=== PATIENT | male | born 1970 | race Caucasian/White ===

== ENCOUNTER 2017-06-03 10:26 | Emergency (ER) | payer MEDICARE, OTHER ==
[~2017-06-03] VITALS: Ht 167.6 cm; Wt 81.7 kg
[~2017-06-03 10:26] MED LIST: AMITRIPTYLINE H50 MG PO; CLINDAMYCIN HC300 MG IV; CLINDAMYCIN HC300 MG PO; DOXYCYCLINE HY100 MG PO; FLOMAX0.4 MG PO; HYDROXYZINE HCL50 MG PO; LEVOTHYROXINE150 MCG PO; NORCO 5-325 TA1 EACH PO; VANCOCIN HCL125 MG IV; VICODIN 5-5001 EACH PO; ZOLOFT50 MG PO
[2017-06-03] MEDS ORDERED: PROTONIX40 MG PO (12:34)
== END 2017-06-03 12:50 | disposition home or self-care (01) ==
LOC: ED 10:26
DX: R10.11 Right upper quadrant pain (principal); F17.200 Nicotine dependence, unspecified, uncomplicated; Z87.442 Personal history of urinary calculi; Z88.8 Allergy status to other drugs, medicaments and biological substances; Z79.899 Other long term (current) drug therapy
CPT/HCPCS: 74176; 80053; 81001; 82150; 83690; 85025; 87088; 96361; 96374; 96375; 99284; J1885; J2405; J7030

== ENCOUNTER 2018-07-10 08:27 | Emergency (ER) | payer MEDICARE, OTHER ==
[~2018-07-10] VITALS: Ht 167.6 cm; Wt 81.7 kg
--- OUTSIDE RECORDS SUMMARY | ~2018-07-10 | XMS | Encounter Summary ---
Demographics + + + | Address | [address] | | | [place] [address] | + + + | Home Phone | | + + + | Preferred Language | Unknown | + + + | Marital Status | Single | + + + | Denominational Affiliation | Unknown | + + + | Race | Unknown | + + + | Ethnic Group | Unknown | + + + Author + + + | Author | [facility] [employer] | + + + | Organization | [facility] | + + + | Address | Unknown | + + + | Phone | Unavailable | + + + Support + + +---------+ + | Name | Relationship | Address | Phone | + + +---------+ + | Zakia Song | ECON | Unknown | | + + +---------+ + Care Team Providers + +------+ + | Care Manager Transportation Name | Role | Phone | + +------+ + | Brigitte Law MD | PCP | | + +------+ + Encounter Details +--------+ + + + + | Date | Type | Department | Care Team | Description | +--------+ + + + + | 05/17/ | Documentati | [facility] | 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, | | | 2017 | on Only | [facility] | [facility] [address] | | | | | [address] | [address] [place], | | | | | [place] | [place] [address] | | | | | [address] | [phone] | | | | | [phone] | | | +--------+ + + + [...] on file | | + + + as of this encounter Progress Celena Richards - 05/17/2018 11:51 AM PDTScanned referral in this encounter Plan of Treatment +--------+ + + + + | Date | Type | Specialty | Care Team | Description | +--------+ + + + + | 07/25/ | Appointment | Dolorology | Harish Anderson, | | | 2017 | | | MD [address] | | | | | | [place] | | | | | | [address] | | | | | | | | +--------+ + + + + | 08/01/ | Appointment | Dolorology | Harish Anderson, | | | 2017 | | | MD [address] | | | | | | [place] | | | | | | [address] | | | | | | | | +--------+ + + + + as of this encounter Visit Diagnoses Not on filein this encounter"
--- OUTSIDE RECORDS SUMMARY | ~2018-07-10 | XMS | Encounter Summary ---
Demographics + + + | Address | [address] | | | [place] [address] | + + + | Home Phone | | + + + | Preferred Language | Unknown | + + + | Marital Status | Single | + + + | Gnosticist Affiliation | Unknown | + + + | Race | Unknown | + + + | Ethnic Group | Unknown | + + + Author + + + | Author | [facility] [employer] | + + + | Organization | [facility] | + + + | Address | Unknown | + + + | Phone | Unavailable | + + + Support + + +---------+ + | Name | Relationship | Address | Phone | + + +---------+ + | Zakia Song | ECON | Unknown | | + + +---------+ + Care Team Providers + +------+ + | Care [employer] Name | Role | Phone | + +------+ + | Brigitte Law MD | PCP | | + +------+ + Encounter Details +--------+ + + + + | Date | Type | Department | Care Team | Description | +--------+ + + + + | 05/16/ | Procedure | [facility] | | | | 2017 | Pass | [facility] | | | | | | RADIOLOGY [address] | | | | | | [address] | | | | | | [place] [address] | | | | | | [phone] | | | +--------+ + + + [...] + + + as of this encounter Plan of Treatment +--------+ + + + + | Date | Type | Specialty | Care Team | Description | +--------+ + + + + | 07/25/ | Appointment | Preciousorology | Harish Anderson, | | | 2017 | | | MD [address] | | | | | | [place] | | | | | | [address] | | | | | | | | +--------+ + + + + | 08/01/ | Appointment | Dolorology | Harish Anderson, | | | 2017 | | | MD [address] | | | | | | [place] | | | | | | [address] | | | | | | | | +--------+ + + + + as of this encounter Visit Diagnoses Not on filein this encounter"
--- OUTSIDE RECORDS SUMMARY | ~2018-07-10 | XMS | Encounter Summary ---
Demographics + + + | Address | [address] | | | [place] [address] | + + + | Home Phone | | + + + | Preferred Language | Unknown | + + + | Marital Status | Single | + + + | Uatsdin Affiliation | Unknown | + + + | Race | Unknown | + + + | Ethnic Group | Unknown | + + + Author + + + | Author | [facility] [employer] | + + + | Organization | [facility] | + + + | Address | Unknown | + + + | Phone | Unavailable | + + + Support + + +---------+ + | Name | Relationship | Address | Phone | + + +---------+ + | Zakia Song | ECON | Unknown | | + + +---------+ + Care Team Providers + +------+ + | Care Painter And Grader Cork Name | Role | Phone | + +------+ + | Brigitte Law MD | PCP | | + +------+ + Encounter Details +--------+ + + + + | Date | Type | Department | Care Team | Description | +--------+ + + + + | 06/02/ | Documentati | Jennifer | Harish Anderson, | | | 2018 | on Only | [facility] | [address] | | | | | [address] | [place], [place] | | | | | [place], [place] | [address] | | | | | [address] | | | | | | [phone] | | | +--------+ + + + [...] + + as of this encounter Progress Notes Negrita Fermin CMA - 06/02/2018 9:57 AM PDTROIin this encounter Plan of Treatment +--------+ + + + + | Date | Type | Specialty | Care Team | Description | +--------+ + + + + | 07/25/ | Appointment | Dolorology | Harish Anderson, | | | 2017 | | | MD [address] | | | | | | [place], [place] | | | | | | [address] | | | | | | | | +--------+ + + + + | 08/01/ | Appointment | Dolorology | Harish Anderson, | | 2017 | | | [address] | | | | | | [place] | | | | | | [address] | | | | | | | | +--------+ + + + + as of this encounter Visit Diagnoses Not on filein this encounter"
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
--- OUTSIDE RECORDS SUMMARY | ~2018-07-10 | XMS | Encounter Summary ---
Demographics + + + | Address | [address] | | | [place] [address] | + + + | Home Phone | | + + + | Preferred Language | Unknown | + + + | Marital Status | Single | + + + | Scientology Affiliation | Unknown | + + + | Race | Unknown | + + + | Ethnic Group | Unknown | + + + Author + + + | Author | [facility] [employer] | + + + | Organization | [facility] | + + + | Address | Unknown | + + + | Phone | Unavailable | + + + Support + + +---------+ + | Name | Relationship | Address | Phone | + + +---------+ + | Zakia Song | ECON | Unknown | | + + +---------+ + Care Team Providers + +------+ + | Care Business Performance Manager Name | Role | Phone | + +------+ + | Brigitte Law MD | PCP | | + +------+ + Reason for Visit MRI/CAT Scan (Routine) + +--------+ + + + + | Status | Reason | Specialty | Diagnoses / | Referred By | Referred To | | | | | Procedures | Contact | Contact | + +--------+ + + + + | Pending | | Radiology | Diagnoses | See, | | | Review | | | Diagnosis | Medical | | | | | | unknown | Record | | | | | | Procedures | | | | | | | MRI lumbar | | | | | | | spine | | | | | | | without | | | | | | | contrast | | | + +--------+ + + + + Encounter Details +--------+ + + + + | Date | Type | Department | Care Team | Description | +--------+ + + + + | 05/16/ | Hospital | [facility] | See, Medical | Diagnosis unknown | | 2018 | Encounter | [facility] | Record | | | | | RADIOLOGY [address] | | | | | | [place] [address] | | | | | | [phone] | | | +--------+ + + + [...] | | 2017 | | | [address] | | | | | | [place] | | | | | | [address] | | | | | | | | +--------+ + + + + | 08/01/ | Appointment | Dolorology | Harish Anderson, | | | 2017 | | | [address] | | | | | | [place] | | | | | | [address] | | | | | | | | +--------+ + + + + as of this encounter Procedures + +--------+ + + + | Procedure Name | Priori | Date/Time | Associated Diagnosis | Comments | | | ty | | | | + +--------+ + + + | MRI LUMBAR SPINE WO | Routin | 04/19/2018 | Diagnosis unknown | Results for this | | CONTRAST | e | 12:02 AM | | procedure are in the | | | | PDT | | results section. | + +--------+ + + + in this encounter Results MRI lumbar spine without contrast (04/19/2018 12:02 AM) + + + | Narrative | Performed At | + + + | This is a non-reportable procedure without a radiologist report and | [facility] | | is used for image storage only | [facility]IOLOGY | + + + + + + + + | Performing | Address | City/State/Zipcode | Phone Number | | Organization | | | | + + + + + | [facility] | [address] | [place] [address] | | + + + + + in this encounter Visit Diagnoses + + | Diagnosis | + + | Diagnosis unknown | + + | Other unknown and unspecified cause of morbidity or mortality | + +"
--- OUTSIDE RECORDS SUMMARY | ~2018-07-10 | XMS | Encounter Summary ---
Demographics + + + | Address | [address] | | | [place] [address] | + + + | Home Phone [...] + + + | Author | [facility] | | | and [place] | + + + | Organization | [facility] | | | and [place] | + + + | Address | Unknown | + + + | Phone | Unavailable | + + + Support + + + + + | Name | Relationship | Address | Phone | + + + + + | Tom Song | ECON | [address] | | | | | [place] | | | | | [address] | | + + + + + Care Team Providers + +------+ + | Care Deliverer Outside Name | Role | Phone | + +------+ + | Rubi Mcclure | PCP | | | MD | | | + +------+ + Encounter Details +--------+ + + + + | Date | Type | Department | Care Team | Description | +--------+ + + + + | 04/14/ | Ancillary | [facility] | Provider, | | | 2018 | Orders | [facility] | [address] | | | | | IMAGING | [address] | | | | | [phone] | [place] [address] | | +--------+ + + + + [...] this encounter Plan of Treatment Not on fileas of this encounter Results MRI Lumbar Spine wo Contrast (09/28/2012 1350) + + + | Narrative | Performed [...] | | | + +---------+ + + MRI Cervical Spine wo Contrast (09/28/2012 1345) + + + | Narrative | Performed [...] | | | + +---------+ + + in this encounter Visit Diagnoses Not on filein this encounter"
--- OUTSIDE RECORDS SUMMARY | ~2018-07-10 | XMS | Clinical Summary ---
Demographics + + + | Address | [address] | | | [place] [address] | + + + | Home Phone | | + + + | Preferred Language | Unknown | + + + | Marital Status | Single | + + + | Advent Affiliation | Unknown | + + + | Race | Unknown | + + + | Ethnic Group | Unknown | + + + Author + + + | Author | [facility] | + + + | Organization | [facility] | + + + | Address | Unknown | + + + | Phone | Unavailable | + + + Support + + +---------+ + | Name | Relationship | Address | Phone | + + +---------+ + | Zakia Song | ECON | Unknown | | + + +---------+ + Care Team Providers + +------+ + | Care Sash Repairer Name | Role | Phone | + [...] + + + Current Medications + + +-------+---------+------+------+-------+ | Prescription | Sig. | Disp. | Refills | Star | End | Statu | | | | | | t | Date | s | | | | | | Date | | | + + +-------+---------+------+------+-------+ | levothyroxine | | | | 07/2 | | Activ | | (SYNTHROID) 200 MCG | | | | 5/20 | | e | | tablet | | | | 18 | | | + + +-------+---------+------+------+-------+ | PARoxetine (PAXIL) | | | | 07/2 | | Activ | | 10 MG tablet | | | | 5/20 | | e | | | | | | 18 | | | + + +-------+---------+------+------+-------+ | aspirin 81 MG | Take 81 mg by mouth | | | | | Activ | | tablet | daily. | | | | | e | + + +-------+---------+------+------+-------+ | buPROPion | | | | 09/0 | | Activ | | (WELLBUTRIN SR) 150 | | | | 4/20 | | e | | MG 12 hr tablet | | | | 18 | | | + + +-------+---------+------+------+-------+ | omega-3 acid ethyl | | | | 09/0 | | Activ | | esters (LOVAZA) 1 g | | | | 4/20 | | e | | capsule | | | | 18 | | | + + +-------+---------+------+------+-------+ Active Problems + + + | Problem [...] Facet arthritis of lumbosacral region (HCC) | 06/01/2018 | + + + | Thoracic degenerative disc disease | 06/01/2018 | + + + | Thoracic disc herniation | 06/01/2018 | + + + Encounters +--------+ + + + + | Date | Type | Specialty | Care Team | Description | +--------+ + + + + | 07/03/ | Office | | Harish Anderson, | Spondylosis of | | 2017 | Visit | | MD | lumbar spine | | | | | | (Primary Dx); Facet | | | | | | arthritis of | | | | | | lumbosacral region | | | | | | (HCC); Pars defect | | | | | | of lumbar spine | +--------+ + + + + | 06/02/ | Documentati | | Harish Anderson, | | | 2017 | on Only | | MD | | +--------+ + + + + | 06/01/ | Office | | Harish Anderson, | Spondylosis of | | 2018 | Visit | | MD | lumbar spine; Lumbar | | | | | | radicular pain; | | | | | | 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; | | | | | | Sacroiliac joint | | | | | | pain; Facet | | | | | | arthritis of | | | | | | lumbosacral region | | | | | | ([facility]); Thoracic | | | | | | degenerative disc | | | | | | disease; Thoracic | | | | | | disc herniation | +--------+ + + + + | 05/17/ | Documentati | | 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, | | | 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 | | +--------+ + + + + | 05/16/ | Hospital | | See, Medical | Diagnosis unknown | | 2017 | Encounter | | Record | | +--------+ + + + + | 05/16/ | Hospital | | See, Medical | Diagnosis unknown | | 2018 | Encounter | | Record | | +--------+ + + + + | 05/16/ | Procedure | | | | | 2018 | Pass | | | | +--------+ + + + + | 05/16/ | Procedure | | | | | 2018 | Pass | | | | +--------+ + + + + | 05/15/ | Ancillary | | See, Medical | Diagnosis unknown | | 2018 | Orders | | Record | | +--------+ + + + + from Last 3 Months Family History + + +------+ + | [...] PM PDT | + + + + Plan of Treatment +--------+ + + + + | Date | Type | Specialty | Care Team | Description | +--------+ + + + + | 07/25/ | Appointment | | Harish Anderson, | | | 2018 | | | MD [address] | | | | | | [place], [place] | | | | | | [address] | | | | | | | | +--------+ + + + + | 08/01/ | Appointment | | Harish Anderson, | | | 2018 | | | MD [address] | | | | | | [place] | | | | | | [address] | | | | | | | | +--------+ + + + + + + + + + | Health [...] | | | | | (#1) | 8 | | | + + + + + Procedures + +--------+ + + + | Procedure Name | Priori | Date/Time | Associated Diagnosis | Comments | | | ty | | | | + +--------+ + + + | MRI THORACIC SPINE | Routin | 04/20/2018 | Diagnosis unknown | Results for this | | WO [...] section. | + +--------+ + + + from Last 3 Months Results MRI thoracic spine without contrast (04/20/2018 12:00 AM) + + + | Narrative | Performed At | + + + | This is a non-reportable procedure without a radiologist report and | [facility] | | is used for image storage only | [facility] | + + + + + + + + | Performing | Address | City/State/Zipcode | Phone Number | | Organization | | | | + + + + + | [facility] | [address] | [place] [address] | | + + + + + MRI lumbar spine without contrast (04/19/2018 12:02 AM) + + + | Narrative | Performed At | + + + | This is a non-reportable procedure without a radiologist report and | [facility] | | is used for image storage only | [facility] | + + + + + + + + | Performing | Address | City/State/Zipcode | Phone Number | | Organization | | | | + + + + + | [facility] | [address] | [place] [address] | | + + + + + from Last 3 Months Insurance + +--------+ +------+-------+ + | Payer | Benefi | Subscriber | Type | Phone | Address | | | t Plan | ID | | | | | | / | | | | | | | Group | | | | | + +--------+ +------+-------+ + | MEDICARE | MEDICA | [id number] | | | [address] | | | RE | | | | [place] [phone] | | | IP-OP | | | | | + +--------+ +------+-------+ + | MEDICAID | MEDICA | [id number] | | | [address] | | | ID | | | | [place] | | | [place] | | | | [phone] | + +--------+ +------+-------+ + + +--------+ +--------+ + + | Guarantor Name | Accoun | Relation to | Date | Phone | Billing Address | | | t Type | Patient | of | | | | | | | | | | + +--------+ +--------+ + + | GISELLA BERGER | Person | Self | [birth year] | Home: | [address] | | | al/Fam | | 1969 | [phone] | [place] [address] | | | marj | | | [phone] | | + +--------+ +--------+ + +
--- OUTSIDE RECORDS SUMMARY | ~2018-07-10 | XMS | Encounter Summary ---
Demographics + + + | Address | [address] | | | [place] [address] | + + + | Home Phone | | + + + | Preferred Language | Unknown | + + + | Marital Status | Single | + + + | Quaker Affiliation | Unknown | + + + | Race | Unknown | + + + | Ethnic Group | Unknown | + + + Author + + + | Author | [facility] | + + + | Organization | [facility] | + + + | Address | Unknown | + + + | Phone | Unavailable | + + + Support + + +---------+ + | Name | Relationship | Address | Phone | + + +---------+ + | Zakia Song | ECON | Unknown | | + + +---------+ + Care Team Providers + +------+ + | Care Cloth Stretcher Name | Role | Phone | + [...] | | | | | | MRI thoracic | | | | | | | spine | | | | | | | without | | | | | | | contrast | | | + +--------+ + + + + Encounter Details +--------+ + + + + | Date | Type | Department | Care Team | Description | +--------+ + + + + | 05/16/ | Hospital | [facility] | See, Medical | Diagnosis unknown | | 2018 | Encounter | [facility] | Record | | | | | RADIOLOGY [address] | | | | | | [place] [address] | | | | | | [phone] | | | +--------+ + + + [...] | | | | | | [place] [facility] [place] | | | | | | [address] | | | | | | | | +--------+ + + + + | 08/01/ | Appointment | Dolorology | Harish Anderson, | | | 2017 | | | [address] | | | | | | [place] | | | | | | [address] | | | | | | | [...] + + in this encounter Results MRI thoracic spine without contrast (04/20/2018 [...] [facility] | [address] | [place] [address] | | + + + + + in this encounter Visit Diagnoses + + | Diagnosis | + + | Diagnosis unknown | + + | Other unknown and unspecified cause of morbidity or mortality | + +"
--- OUTSIDE RECORDS SUMMARY | ~2018-07-10 | XMS | Encounter Summary ---
Demographics + + + | Address | [address] | | | [place] [address] | + + + | Home Phone | | + + + | Preferred Language | Unknown | + + + | Marital Status | Single | + + + | Voodoo Affiliation | Unknown | + + + | Race | Unknown | + + + | Ethnic Group | Unknown | + + + Author + + + | Author | [facility] | + + + | Organization | [facility] | + + + | Address | Unknown | + + + | Phone | Unavailable | + + + Support + + +---------+ + | Name | Relationship | Address | Phone | + + +---------+ + | Zakia Song | ECON | Unknown | | + + +---------+ + Care Team Providers + +------+ + | Care Communication Engineer Name | Role | Phone | + +------+ + | Brigitte Law MD | PCP | | + +------+ + Encounter Details +--------+ + + + + | Date | Type | Department | Care Team | Description | +--------+ + + + + | 05/16/ | Procedure | [facility] | | | | 2017 | Pass | [facility] | | | | | | RADIOLOGY [address] | | [address] | [address] | | | | | | [place] [address] | | | | | | [phone] | | | +--------+ + + + [...] | | | | | | [place] | | | | | | [address] | | | | | | | | +--------+ + + + + | 08/01/ | Appointment | Dolorology | Harish Anderson, | | | 2017 | | | MD [address] | | | | | | [place] | | | | | | [address] | | | | | | | | +--------+ + + + + as of this encounter Visit Diagnoses Not on filein this encounter"
--- OUTSIDE RECORDS SUMMARY | ~2018-07-10 | XMS | Encounter Summary ---
Demographics + + + | Address | [address] | | | [place] [address] | + + + | Home Phone | | + + + | Preferred Language | Unknown | + + + | Marital Status | Single | + + + | Faith Affiliation | Unknown | + + + | Race | Unknown | + + + | Ethnic Group | Unknown | + + + Author + + + | Author | [facility] | + + + | Organization | [facility] | + + + | Address | Unknown | + + + | Phone | Unavailable | + + + Support + + +---------+ + | Name | Relationship | Address | Phone | + + +---------+ + | Zakia Song | ECON | Unknown | | + + +---------+ + Care Team Providers + +------+ + | Care Housekeeper Manager Name | Role | Phone | + +------+ + | Brigitte Law MD | PCP | | + +------+ + Reason for Referral MRI/CAT Scan (Routine) + +--------+ + + [...] | + +--------+ + + + + MRI/CAT Scan (Routine) + +--------+ + + [...] + + | 05/15/ | Ancillary | [facility] | See, Medical | Diagnosis unknown | | 2018 | [facility] | Record | | | | | [address] | | | | | | [place] [address] | | | | | | [phone] | | | +--------+ + + + [...] | | | | | | [place] [facility] [place] | | | | | | [address] | | | | | | | | +--------+ + + + + | 08/01/ | Appointment | Dolorology | Harish Anderson, | | | 2017 | | | MD [address] | | | | | | [place] [facility] [place] | | | | | | [address] | | | | | | | | +--------+ + + + + as of this encounter Results MRI thoracic spine without contrast (04/20/2018 12:00 AM) + + + | Narrative | Performed At | + + + | This is a non-reportable procedure without a radiologist report and | [facility] | | is used for image storage only | [facility] | + + + + + + + + | Performing | Address | City/State/Zipcode | Phone Number | | Organization | | | | + + + + + | [facility] | [address] | [place] [address] | | + + + + + [...] [facility] | [address] | [facility] [place] [address] | | + + + + + in this encounter Visit Diagnoses + + | Diagnosis | + + | Diagnosis unknown | + + | Other unknown and unspecified cause of morbidity or mortality | + +"
--- OUTSIDE RECORDS SUMMARY | ~2018-07-10 | XMS | Clinical Summary ---
Demographics + + + | Address | [address] | | | [place] [address] | + + + | Home Phone [...] | Author | [facility] | | | and [place] | + + + | Organization | [facility] | | | and [place] | [...] [place] | | | | | [address] | | + + + + + Care Team Providers + +------+ + | Care Contact Center Engineer Name | Role | Phone | + +------+ + | Rubi Mcclure | PP | | | MD | | | + +------+ + Allergies + + + + + + | Active Allergy | Reactions | Severity | Noted | Comments | | | | | Date | | + + + + + + | Cortisone | Palpitations | Low | 07/02/20 | | | | | | 17 | | + + + + + + Current Medications + + +--------+---------+------+------+-------+ | Prescription | Sig. | Disp. | Refills | Star | End | Statu | | | | | | t | Date | s | | | | | | Date | | | + + +--------+---------+------+------+-------+ | levothyroxine | Take 175 mcg by | | | | | Activ | | (SYNTHROID) 175 MCG | mouth every morning | | | | | e | | tablet | (before breakfast). | | | | | | + + +--------+---------+------+------+-------+ | diazePAM (VALIUM) | Take 0.5 tablets by | 8 | 0 | 09/0 | | Activ | | 10 MG tablet | mouth every 8 hours | tablet | | 9/20 | | e | | | as needed. | | | 17 | | | + + +--------+---------+------+------+-------+ | naproxen sodium | Take 1 tablet by | 30 | 0 | | | Activ | | (ANAPROX) 550 MG | mouth Twice daily | tablet | | 07/13 | | e | | tablet | as needed. | | | 17 | | | + + +--------+---------+------+------+-------+ Active Problems + + + | Problem | Noted Date | + + + | BACK PAIN | | + + + Encounters +--------+ + + + + | Date | Type | Specialty | Care Team | Description | +--------+ + + + + | 04/14/ | Ancillary | | Provider, | | | 2018 | Orders | | MD Abilio | | +--------+ + + + + from Last 3 Months Social History + + + +--------+------+ | [...] + | Blood Pressure | 140/92 | 10/22/20171451 PST | + + + + | Pulse | 64 | 10/22/20171451 PST | + + + + | Temperature | 36.7 C (98.1 F) | 10/22/20171451 PST | + + + + | Respiratory Rate | 18 | 10/22/20171451 PST | + + + + | Oxygen Saturation | 99% | 10/22/20171451 PST | + + + + | Inhaled Oxygen | - | - | | Concentration | | | + + + + | Weight | 83.2 kg (183 lb 6.8 | 10/22/20171451 PST | | | oz) | | + + + + | Height | 167.6 cm (5' 6") | 10/22/20171451 PST | + + + + | Body Mass Index | 29.61 | 10/22/20171451 PST | + + + + Plan of Treatment + + + + + | Health Maintenance | Due Date | Last Done | Comments | + + + + + | Vaccine: | | | | | Dtap/Tdap/Td (1 - | 7 | | | | Tdap) | | | | + + + + + | Vaccine: | | | | | Pneumococcal 19-64 | 7 | | | | (PPSV23 only) Medium | | | | | Risk (1 of 1 - | | | | | PPSV23) | | | | + + + [...] Last 3 Months Insurance + +--------+ +--------+ +---------+ | Payer | Benefi | Subscriber | Type | Phone | Address | | | t Plan | ID | | | | | | / | | | | | | | Group | | | | | + +--------+ +--------+ +---------+ | MEDICARE | MEDICA | [id number] | Medica | +1- | | | | RE | | re | [phone] | | | | PART A | | | | | | | AND B | | | | | + +--------+ +--------+ +---------+ | MEDICARE | MEDICA | [id number] | Medica | +1- | | | | RE | | re | [phone] | | | | PART A | | | | | | | AND B | | | | | + +--------+ +--------+ +---------+ | [place] | MEDICA | [id number] | Medica | +- | | | | ID | | id | 5772 | | | | [place] | | | | | + +--------+ +--------+ +---------+ | [place] | MEDICA | [id number] | Medica | +- | | | | ID | | id | 5772 | | | | [place] | | | | | + +--------+ +--------+ +---------+ + +--------+ +--------+ + + | Guarantor Name | Accoun | Relation to | Date | Phone | Billing Address | | | t Type | Patient | of | | | | | | | | | | + +--------+ +--------+ + + | GISELLA BERGER | Person | Self [birth year] | Home: | [address] | | | al/Fam | | 1969 | [phone] | [place] [address] | | | marj | | | [address] | | + +--------+ +--------+ + + | GISELLA BERGER | Person | Self | [birth year] | Home: | [address] | | | al/Fam | | 1970 | [phone] | [place] [address] | | | marj | | | [address] | | + +--------+ +--------+ + +
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
[~2018-07-10 08:27] MED LIST changes: +PROTONIX40 MG PO
[2018-07-10] MEDS ORDERED: BUPROPION HCL150 M2 PO (08:37)
[2018-07-10] MEDS ORDERED: OMEGA-3 ACID ETH1 GM PO (08:37)
== END 2018-07-10 09:15 | disposition home or self-care (01) ==
LOC: ED 08:27
DX: M77.12 Lateral epicondylitis, left elbow (principal); F17.200 Nicotine dependence, unspecified, uncomplicated; Z88.8 Allergy status to other drugs, medicaments and biological substances; Z79.899 Other long term (current) drug therapy
CPT/HCPCS: 99283

== ENCOUNTER 2018-11-29 20:43 | Emergency (ER) | payer MEDICARE, OTHER ==
[~2018-11-29] VITALS: Ht 167.6 cm; Wt 83.9 kg
[~2018-11-29 20:43] MED LIST changes: +ASPIR-LOW81 MG PO; +BUPROPION HCL150 M2 PO; +OMEGA-3 ACID ETH1 GM PO; +PROZAC10 MG PO
[2018-11-29] MEDS ORDERED: TAMIFLU75 MG PO (22:31)
--- NOTE | 2018-11-30 00:35 | EKG ---
[facility] [address] [facility] [place] [address] Signed Normal sinus rhythm Possible Left atrial enlargement Borderline ECG No previous ECGs available Confirmed by SONAM RAYMOND MD ([id number]) on 11/30/2018 12:35:02 AM Electronically Signed By: SONAM RAYMOND MD 11/30/18 0035 PATIENT NAME: GISELLA BERGER GAL MENDEZ Electrocardiogram DATE OF : 66 PHYSICIAN: SONAM RAYMOND MD REPORT #: [id number] REPORT IS CONFIDENTIAL AND NOT TO BE RELEASED WITHOUT AUTHORIZATION
== END 2018-11-29 22:47 | disposition home or self-care (01) ==
LOC: ED 20:43
DX: J10.1 Influenza due to other identified influenza virus with other respiratory manifestations (principal); F17.200 Nicotine dependence, unspecified, uncomplicated; Z88.8 Allergy status to other drugs, medicaments and biological substances; Z79.899 Other long term (current) drug therapy; Z79.82 Long term (current) use of aspirin
CPT/HCPCS: 71046; 80053; 83605; 84484; 85025; 87040; 87502; 93005; 93010; 96374; 99285-25; J2405; J7030

== ENCOUNTER 2019-10-11 07:44 | Emergency (ER) | payer MEDICARE, OTHER ==
[~2019-10-11] VITALS: Ht 165.1 cm; Wt 86.2 kg
--- OUTSIDE RECORDS SUMMARY | ~2019-10-11 | XMS | Encounter Summary ---
Demographics + + + | Address | [address] | | | [place] [address] | + + + | Home Phone | | + + + | Preferred Language | Unknown | + + + | Marital Status | Unknown | + + + | Samaritan Affiliation | Unknown | + + + | Race | Unknown | + + + | Ethnic Group | Unknown | + + + Author + + + | Author | [facility] | | | and [place] | + + + | Organization | [facility] | | | and [place] | + + + | Address | Unknown | + + + | Phone | Unavailable | + + + Support + + +---------+ + | Name | Relationship | Address | Phone | + + +---------+ + | Zakia Song | ECON | Unknown | | + + +---------+ + Care Team Providers + +------+ + | Care Music Intern Name | Role | Phone | + +------+ + | Rubi Mcclure | PCP | | | MD | | | + +------+ + Encounter Details +--------+ + + + + | Date | Type | Department | Care Team | Description | +--------+ + + + + | 05/16/ | Hospital | [facility] | Conversion | Diagnosis unknown | | 2018 | Encounter | CONVERSION DEP [address] | Transaction, | | | | | [place] | Provider Unknown | | | | | [place] | [phone] | | | | | [address] | | | | | | [phone] | | | +--------+ + + + + Social History + + + +--------+------+ | Tobacco Use | Types | Packs/Day | Years | Date | | | | | Used | | + + + +--------+------+ | Current Every Day | Cigarettes | 0.5 | | | | Smoker | | | | | + + + +--------+------+ + +------+---+---+ | Smokeless Tobacco: | Chew | | | | Current User | | | | + +------+---+---+ + + +---------+ + | Alcohol Use | Drinks/Week | oz/Week | Comments | + + +---------+ + | No | | | | + + +---------+ + + + + | Sex Assigned at | Date Recorded | | | | + + + | Not on file | | + + + + + + + | Job Start Date | Occupation | Industry | + + + + | Not on file | Not on file | Not on file | + + + + + + + + | Travel History | Travel Start | Travel End | + + + + + + | No recent travel history available. | + + documented as of this encounter Medications at Time of Discharge + + + +---------+ + + | Medication | Sig | Dispensed | Refills | Start | End Date | | | | | | Date | | + + + +---------+ + + | carisoprodol | 1 Tablet twice daily | | 0 | 09/16/20 | | | (SOMA) 350 mg tablet | ORAL | | | 15 | | + + + +---------+ + + | diazePAM (VALIUM) | Take 0.5 tablets by | 8 | 0 | 07/02/20 | | | 10 MG tablet | mouth every 8 hours | tablet | | 17 | | | | as needed. | | | | | + + + +---------+ + + | diclofenac | 1 Gel four times | | 0 | 09/17/20 | | | (VOLTAREN) 1% GEL | daily PRN | | | 15 | | | | Transdermal | | | | | + + + +---------+ + + | levothyroxine | Take 175 mcg by | | 0 | | | | (SYNTHROID) 175 MCG | mouth every morning | | | | | | tablet | (before breakfast). | | | | | + + + +---------+ + + | naproxen sodium | Take 1 tablet by | 30 | 0 | 07/02/20 | | | (ANAPROX) 550 MG | mouth Twice daily | tablet | | 17 | | | tablet | as needed. | | | | | + + + +---------+ + + | oxyCODONE | 1 Tablet four times | | 0 | 02/16/20 | | | (ROXICODONE) 15 mg | daily ORAL | | | 16 | | | immediate release | | | | | | | tablet | | | | | | + + + +---------+ + + documented as of this encounter Plan of Treatment Not on filedocumented as of this encounter Procedures + +--------+ + + + | Procedure Name | Priori | Date/Time | Associated Diagnosis | Comments | | | ty | | | | + +--------+ + + + | MRI THORACIC SPINE | Routin | 04/20/2018 | | Results for this | | WO CONTRAST | e | 12:00 AM | | procedure are in the | | | | PDT | | results section. | + +--------+ + + + documented in this encounter Results MRI Thoracic Spine wo Contrast (04/20/2018 12:00 AM PDT) + + | Specimen | + + | | + + + + + | Narrative | Performed At | + + + | This is a non-reportable procedure without a radiologist report and | | | is used for image storage only | | + + + + + | Procedure Note | + + | Kareem Elam - 06/06/2019 5:29 PM PDT This is a non-reportable procedure | | without a radiologist report and isused for image storage only | + + documented in this encounter Visit Diagnoses + + | Diagnosis | + + | Diagnosis unknown Other unknown and unspecified cause of morbidity or mortality | + + documented in this encounter"
--- OUTSIDE RECORDS SUMMARY | ~2019-10-11 | XMS | Encounter Summary ---
Demographics + + + | Address | [address] | | | [place] [address] | + + + | Home Phone | | + + + | Preferred Language | Unknown | + + + | Marital Status | Unknown | + + + | Adventism Affiliation | Unknown | + + + | Race | Unknown | + + + | Ethnic Group | Unknown | + + + Author + + + | Author | [facility] | | | and [place] | + + + | Organization | [facility] | | | and [...] Team Providers + +------+ + | Care Pug Mill Operator Helper Name | Role | Phone | + +------+ + PCP | Unavailable | + +------+ + Encounter Details +--------+ + + + + | Date | Type | Department | Care Team | Description | +--------+ + + + + | 02/15/ | Hospital | [facility] | [place] | | | 2015 | Encounter | [facility] | MD Tia [address] | | | | | [address] [place] | [place] | | | | | [place] | [address] | | | | | [address] | [phone] | | | | | [phone] | | | +--------+ + + + + Social History + +-------+ +--------+------+ | Tobacco Use | Types | Packs/Day | Years | Date | | | | | Used | | + +-------+ +--------+------+ | Never Assessed | | | | | + +-------+ +--------+------+ + + + | Sex Assigned at [...] + + + +---------+ + + | citalopram | Take 20 mg by mouth | | 0 | 03/20/20 | | | (CELEXA) 20 mg | nightly. | | | 10 | 7 | | tablet | | | | | | + + + +---------+ + + | | Take 10-660 mg by | | 0 | 03/20/20 | | | Hydrocodone-Acetamin | mouth 4 times daily. | | | 10 | 7 | | ophen 10-660 MG TABS | | | | | | + + + +---------+ + + | levothyroxine | Take 112 mcg by | | 0 | 07/07/20 | | | (SYNTHROID, | mouth every morning. | | | 12 | 7 | | LEVOTHROID) 112 mcg | | | | | | | tablet | | | | | | + + + +---------+ + + documented as of this encounter Plan of Treatment Not on filedocumented as of this encounter Visit Diagnoses Not on filedocumented in this encounter"
--- OUTSIDE RECORDS SUMMARY | ~2019-10-11 | XMS | Encounter Summary ---
Demographics + + + | Address | [address] | | | [place] [address] | + + + | Home Phone | | + + + | Preferred Language | Unknown | + + + | Marital Status | Unknown | + + + | Jewish Affiliation | Unknown | + + + | Race | Unknown | + + + | Ethnic Group | Unknown | + + + Author + + + | Author | [facility] | | | and [place] | + + + | Organization | [facility] | | | and [...] Team Providers + +------+ + | Care Auditor Medical Claims Name | Role | Phone | + +------+ + PCP | Unavailable | + +------+ + Encounter Details +--------+ + + + + | Date | Type | Department | Care Team | Description | +--------+ + + + + | 02/02/ | [facility] | [facility] | Raji José | | | 2009 | Encounter | HOSPITAL EMERGENCY | MD [address] | | | | | [place] [address] | [facility] | | | | | [address] [place] | [place] [address] | | | | | [address] | [phone] | | | | | [phone] | | | +--------+ + + + [...]
--- OUTSIDE RECORDS SUMMARY | ~2019-10-11 | XMS | Encounter Summary ---
Demographics + + + | Address | [address] | | | [place] [address] | + + + | Home Phone | | + + + | Preferred Language | Unknown | + + + | Marital Status | Unknown | + + + | Lutheran Affiliation | Unknown | + + + | Race | Unknown | + + + | Ethnic Group | Unknown | + + + Author + + + | Author | [facility] | | | and [place] | + + + | Organization | [facility] | | [...] Team Providers + +------+ + | Care Merchandise Presentation Manager Name | Role | Phone | + +------+ + PCP | Unavailable | + +------+ + Encounter Details +--------+ + + + + | Date | Type | Department | Care Team | Description | +--------+ + + + + | 12/07/ | [facility] | [facility] | [place], | | | 2012 | Encounter | [facility] | Simon Goldstein MD | | | | | MEDICAL CLINIC [address] | [address] [facility] | | | | | [facility], | [facility], | | | | | [place] [address] | [place] [address] | | | | | [phone] | [phone] | | | | | | | | +--------+ + + + [...]
--- OUTSIDE RECORDS SUMMARY | ~2019-10-11 | XMS | Encounter Summary ---
Demographics + + + | Address | [address] | | | [place] [address] | + + + | Home Phone | | + + + | Preferred Language | Unknown | + + + | Marital Status | Unknown | + + + | Voodoo Affiliation | Unknown | + + + | Race | Unknown | + + + | Ethnic Group | Unknown | + + + Author + + + | Author | [facility] | | | and [place] | + + + | Organization | [facility] | | [...] Team Providers + +------+ + | Care Travel Physical Therapist Name | Role | Phone | + +------+ + | Unknown, Doctor | PCP | | + +------+ + Reason for Visit + + + | Reason | Comments | + + + | Back Pain | | + + + Encounter Details +--------+ + + + + | Date | Type | Department | Care Team | Description | +--------+ + + + + | 07/02/ | Emergency | [facility] | | Acute bilateral | | 2017 | | HOSPITAL EM[facility]ENCY | | thoracic back pain | | | | CENTER [address] | | (Primary Dx) | | [address] | [address] [place], [place] | | | | | | [address] | | | | | | [phone] | | | +--------+ + + + + Social History + +-------+ +--------+------+ | Tobacco Use | Types | Packs/Day | Years | Date | | | | | Used | | + +-------+ +--------+------+ | Current Every Day | | 0.5 | | | | Smoker | | | | | + +-------+ +--------+------+ + +------+---+---+ | Smokeless Tobacco: | [...] + + documented as of this encounter Last Filed Vital Signs + + + + + | Vital Sign | Reading | Time Taken | Comments | + + + + + | Blood Pressure | 110/79 | 07/02/2017 12:07 PM | | | | | PDT | | + + + + + | Pulse | 79 | 07/02/2017 12:07 PM | | | | | PDT | | + + + + + | Temperature | - | - | | + + + + + | Respiratory Rate | 16 | 07/02/2017 12:07 PM | | | | | PDT | | + + + + + | Oxygen Saturation | 95% | 07/02/2017 12:07 PM | | | | | PDT | | + + + + + | Inhaled Oxygen | - | - | | | Concentration | | | | + + + + + | Weight | 95.3 kg (210 lb) | 07/02/2017 10:49 AM | | | | | PDT | | + + + + + | Height | 167.6 cm (5' 6") | 07/02/2017 10:49 AM | | | | | PDT | | + + + + + | Body Mass Index | 33.89 | 07/02/2017 10:49 AM | | | | | PDT | | + + + + + documented in this encounter Discharge Instructions AttachmentsThe following attachments cannot be sent through Care Everywhere.Back Pain, Reli eving (Icelandic)Safety, Back: Bending (Icelandic)documented in this encounter Medications at Time of Discharge [...] Tablet four times | | 0 | 04/25/20 | | | (ROXICODONE) 15 mg | daily ORAL | | | 16 | | | immediate release | | | | | | | tablet | | | | | | + + + +---------+ + + documented as of this encounter Plan of Treatment Not on filedocumented as of this encounter Visit Diagnoses + + | Diagnosis | + + | Acute bilateral thoracic back pain - Primary | + + documented in this encounter Administered Medications + +--------+ +------+------+ + | Medication Order | MAR | Action | Dose | Rate | Site | | | Action | Date | | | | + +--------+ +------+------+ + | diazePAM (VALIUM) injection 5 | Given | 07/02/20 | 5 mg | | Glut-Rig | | mg 5 mg, Intramuscular, ONCE, | | 17 11:13 | | | ht | | 07/02/17 at 1130, For 1 dose | | AM PDT | | | | + +--------+ +------+------+ + +---+---+ | | | +---+---+ + +-------+ +-------+---+ + | ketorolac (TORADOL) injection | Given | 07/02/20 | 30 mg | | Deltoid- | | 30 mg 30 mg, Intramuscular, | | 17 11:13 | | | Right | | ONCE, 07/02/17 at 1130, For 1 | | AM PDT | | | | | dose | | | | | | + +-------+ +-------+---+ + +---+---+ | | | +---+---+ documented in this encounter
--- OUTSIDE RECORDS SUMMARY | ~2019-10-11 | XMS | Encounter Summary ---
Demographics + + + | Address | [address] | | | [place] [address] | + + + | Home Phone | | + + + | Preferred Language | Unknown | + + + | Marital Status | Unknown | + + + | Anabaptist Affiliation | Unknown | + + + | Race | Unknown | + + + | Ethnic Group | Unknown | + + + Author + + + | Author | [facility] | | | and [place] | + + + | Organization | [facility] | | | and [...] Team Providers + +------+ + | Care Telephone Sterilizer Name | Role | Phone | + +------+ + PCP | Unavailable | + +------+ + Encounter Details +--------+ + + + + | Date | Type | Department | Care Team | Description | +--------+ + + + + | 02/07/ | [facility] | [facility] | Te Child | | | 2009 | Encounter | HOSPITAL [facility] | MD [address] | | | | | CENTER [address] | [place] | | | | | [place] | [place] [address] | | | | | [address] | [phone] | | | | | [phone] | | | +--------+ + + + [...]
--- OUTSIDE RECORDS SUMMARY | ~2019-10-11 | XMS | Encounter Summary ---
Demographics + + + | Address | [address] | | | [place] [address] | + + + | Home Phone | | + + + | Preferred Language | Unknown | + + + | Marital Status | Unknown | + + + | Druze Affiliation | Unknown | + + + | Race | Unknown | + + + | Ethnic Group | Unknown | + + + Author + + + | Author | [facility] | | | and [place] | + + + | Organization | [facility] | | | [...] Team Providers + +------+ + | Care Experimental Mechanic Name | Role | Phone | + +------+ + | No, Physician | PCP | Unavailable | + +------+ + Reason for Visit + + + | Reason | Comments | + + + | Headache (Adult - | | | New Onset Or New | | | Symptoms) | | + + + Encounter Details +--------+ + + + + | Date | Type | Department | Care Team | Description | +--------+ + + + + | 10/22/ | Emergency | [facility] | Neil Walker, | Headache around the | | 2017 | | 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 Dx) | | | | CENTER [address] | [address] [place] | | | | | [place] | [address] | | | | | [address] | | | | | | [phone] | | | +--------+ + + + [...] + + + | Blood Pressure | 140/92 | 10/22/2017 2:52 PM | | | | | PST | | + + + + + | Pulse | 64 | 10/22/2017 2:52 PM | | | | | PST | | + + + + + | Temperature | 36.7 C (98.1 F) | 10/22/2017 2:52 PM | | | | | PST | | + + + + + | Respiratory Rate | 18 | 10/22/2017 2:52 PM | | | | | PST | | + + + + + | Oxygen Saturation | 99% | 10/22/2017 2:52 PM | | | | | PST | | + + + + + | Inhaled Oxygen | - | - | | | Concentration | | | | + + + + + | Weight | 83.2 kg (183 lb 6.8 | 10/22/2017 2:52 PM | | | | oz) | PST | | + + + + + | Height | 167.6 cm (5' 6") | 10/22/2017 2:52 PM | | | | | PST | | + + + + + | Body Mass Index | 29.61 | 10/22/2017 2:52 PM | | | | | PST | | + + + + + documented in this encounter Discharge Instructions AttachmentsThe following attachments cannot be sent through Care Everywhere.Headaches, Self -Care for ([place]ic)documented in this encounter Medications at Time [...] | + +--------+ + + + | CT HEAD WO CONTRAST | STAT | 10/22/2017 | | Results for this | | | | 4:02 PM | | procedure are in the | | | | PST | | results section. | + +--------+ + + + documented in this encounter Results CT Head wo Contrast (10/22/2017 4:02 PM PST) + + | Specimen | + + | | + + + + + | Impressions | Performed At | + + + | IMPRESSION: 1. No acute intracranial process. 2. The results of | [facility] | | the study were discussed with NEIL WALKER at 16:30 | | | Dictated by: Cresencio Edouard | | + + + + + + | Narrative | Performed At | + + + | EXAMINATION: CT HEAD WO CONTRAST HISTORY: HEADACHE (ADULT - | [facility] | | NEW ONSET OR NEW SYMPTOMS) COMPARISON STUDY: December 08, 2012 | | | TECHNIQUE: 5 mm axial slices were acquired through the brain | | | without contrast. DOSE REPORT: CTDIvol: 40.4 mGy. DLP: 737 | | | mGy-cm. Automated exposure control was utilized. FINDINGS: No | | | evidence of an acute intracranial hemorrhage, mass lesion, or midline | | | shift. The schaefer-white matter interface is intact. The ventricles are | | | symmetric. Sulci are age appropriate. Basilar cisterns are patent. | | | White matter has a normal appearance. No obvious vascular | | | abnormality. Paranasal sinuses and mastoid air cells are clear. No | | | fracture. | | + + + + + | Procedure Note | + + | Papa, Rad Results In - 10/22/2017 4:44 PM PST EXAMINATION: | | CT HEAD WO CONTRAST | | | | HISTORY: | | HEADACHE (ADULT - NEW ONSET OR NEW SYMPTOMS) | | | | COMPARISON STUDY: | | December 08, 2012 | | | | TECHNIQUE: | | 5 mm axial slices were acquired through the brain without contrast. | | | | DOSE REPORT: | | CTDIvol: 40.4 mGy. DLP: 737 mGy-cm. Automated exposure control was utilized. | | | | FINDINGS: | | No evidence of an acute intracranial hemorrhage, mass lesion, or midline shift. | | The schaefer-white matter interface is intact. | | The ventricles are symmetric. | | Sulci are age appropriate. | | Basilar cisterns are patent. | | White matter has a normal appearance. | | No obvious vascular abnormality. | | Paranasal sinuses and mastoid air cells are clear. | | No fracture. | | | | IMPRESSION: | | IMPRESSION: | | 1. No acute intracranial process. | | 2. The results of the study were discussed with NEIL WALKER at 16:30 | | | | | | Dictated by: Cresencio Edouard | | | | | + + + +---------+ + + | Performing | Address | City/State/Zipcode | Phone Number | | Organization | | | | + +---------+ + + | [facility] | | | | + +---------+ + + documented in this encounter Visit Diagnoses + + | Diagnosis | + + | Headache around the eyes - Primary Headache | + + documented in this encounter Administered Medications + +--------+ +-------+------+------+ | Medication Order | MAR | Action | Dose | Rate | Site | | | Action | Date | | | | + +--------+ +-------+------+------+ | diphenhydrAMINE (BENADRYL) | Given | 10/22/20 | 25 mg | | | | injection 25 mg 25 mg, | | 17 5:06 | | | | | Intravenous, ONCE, 10/22/17 | | PM PST | | | | | at 1715, For 1 dose | | | | | | + +--------+ +-------+------+------+ +---+---+ | | | +---+---+ + +-------+ +-------+---+---+ | ketorolac (TORADOL) injection | Given | 10/22/20 | 30 mg | | | | 30 mg 30 mg, Intravenous, ONCE, | | 17 5:06 | | | | | 10/22/17 at 1715, For 1 dose | | PM PST | | | | + +-------+ +-------+---+---+ +---+---+ | | | +---+---+ + +-------+ +-------+---+---+ | metoclopramide (REGLAN) 5 mg/mL | Given | 10/22/20 | 10 mg | | | | injection 10 mg 10 mg, | | 17 5:05 | | | | | Intravenous, ONCE, 10/22/17 | | PM PST | | | | | at 1715, For 1 dose, Protect from | | | | | | | light., | | | | | | + +-------+ +-------+---+---+ +---+---+ | | | +---+---+ documented in this encounter
--- OUTSIDE RECORDS SUMMARY | ~2019-10-11 | XMS | Encounter Summary ---
Demographics + + + | Address | [address] | | | [place] [address] | + + + | Home Phone | | + + + | Preferred Language | Unknown | + + + | Marital Status | Unknown | + + + | Nondenominational Affiliation | Unknown | + + + | Race | Unknown | + + + | Ethnic Group | Unknown | + + + Author + + + | Author | [facility] | | | and [place] | + + + | Organization | [facility] | | | and [...] Team Providers + +------+ + | Care Intelligence Specialist Name | Role | Phone | + +------+ + PCP | Unavailable | + +------+ + Encounter Details +--------+ + + + + | Date | Type | Department | Care Team | Description | +--------+ + + + + | 09/05/ | [facility] | [facility] | Tony Dewitt MD | | | 2012 | Encounter | [facility] | [address] | | | | | MEDICAL CLINIC [address] | [place], [place] | | | | | [address] [place], | [address] | | | | | [place] [address] | | | | | | [phone] | | | +--------+ + + + [...]
--- OUTSIDE RECORDS SUMMARY | ~2019-10-11 | XMS | Encounter Summary ---
Demographics + + + | Address | [address] | | | [place] [address] | + + + | Home Phone | | + + + | Preferred Language | Unknown | + + + | Marital Status | Unknown | + + + | Jehovah'S Witness Affiliation | Unknown | + + + | Race | Unknown | + + + | Ethnic Group | Unknown | + + + Author + + + | Author | [facility] | | | and [place] | + + + | Organization | [facility] | | | [...] Team Providers + +------+ + | Care Ocular Care Technologist Name | Role | Phone | + +------+ + | Rubi Mcclure | PCP | | | MD | | | + +------+ + Encounter Details +--------+ + + + + | Date | Type | Department | Care Team | Description | +--------+ + + + + | 05/16/ | Hospital | [facility] | Conversion | Diagnosis unknown | | 2018 | Encounter | CONVERSION DEP [address] | Transaction, | | | | | [place] | Provider Unknown | | | | | [place] | [phone] | | | | | [address] | | | | | | [phone] | | | +--------+ + + + [...] + +--------+ + + + | MRI LUMBAR SPINE WO | Routin | 04/19/2018 | | Results for this | | CONTRAST | e | 12:02 AM | | procedure are in the | | | | PDT | | results section. | + +--------+ + + + documented in this encounter Results MRI Lumbar Spine wo Contrast (04/19/2018 12:02 AM PDT) + + | Specimen | [...]
--- OUTSIDE RECORDS SUMMARY | ~2019-10-11 | XMS | Encounter Summary ---
Demographics + + + | Address | [address] | | | [place] [address] | + + + | Home Phone | | + + + | Preferred Language | Unknown | + + + | Marital Status | Unknown | + + + | Evangelical Affiliation | Unknown | + + + | Race | Unknown | + + + | Ethnic Group | Unknown | + + + Author + + + | Author | [facility] | | | and [place] | + + + | Organization | [facility] | | | [...] Team Providers + +------+ + | Care Electrophysiology Technologist Name | Role | Phone | + +------+ + PCP | Unavailable | + +------+ + Encounter Details +--------+ + + + + | Date | Type | Department | Care Team | Description | +--------+ + + + + | 08/31/ | Hospital | [facility] | Ketty Ordonez, | | | 2011 | Encounter | 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
--- OUTSIDE RECORDS SUMMARY | ~2019-10-11 | XMS | Encounter Summary ---
Demographics + + + | Address | [address] | | | [place] [address] | + + + | Home Phone | | + + + | Preferred Language | Unknown | + + + | Marital Status | Unknown | + + + | Anabaptist Affiliation | Unknown | + + + | Race | Unknown | + + + | Ethnic Group | Unknown | + + + Author + + + | Author | [facility] | | | and [place] | + + + | Organization | [facility] | | [...] Providers + +------+ + | Care Manager Of Application Development Name | Role | Phone | + +------+ + PCP | Unavailable | + +------+ + Encounter Details +--------+ + + + + | Date | Type | Department | Care Team | Description | +--------+ + + + + | 07/21/ | [facility] | [facility] | Estevan Flores | | | 2008 | Encounter | HOSPITAL EMERGENCY | MD [address] | | | | | CENTER [address] | [place] | | | | | [address] [place], [place] | [place] [address] | | | | | [address] | [phone] | | | | | [phone] | | | +--------+ + + + [...]
--- OUTSIDE RECORDS SUMMARY | ~2019-10-11 | XMS | Encounter Summary ---
Demographics + + + | Address | [address] | | | [place] [address] | + + + | Home Phone | | + + + | Preferred Language | Unknown | + + + | Marital Status | Unknown | + + + | Spiritism Affiliation | Unknown | + + + | Race | Unknown | + + + | Ethnic Group | Unknown | + + + Author + + + | Author | [facility] | | | and [place] | + + + | Organization | [facility] | | | [...] Team Providers + +------+ + | Care Brim Blocker Name | Role | Phone | + +------+ + PCP | Unavailable | + +------+ + Encounter Details +--------+ + + + + | Date | Type | Department | Care Team | Description | +--------+ + + + + | 11/30/ | [facility] | [facility] | Rosey, | | | 2012 | Encounter | [facility] | Simon Goldstein MD | | | | | MEDICAL CLINIC [address] | [address] [facility] | | | | | [address] [facility], | [facility], | | | | | [place] [address] | [place] [address] | | | | | [phone] | [phone] | | | | | | | [...]
--- OUTSIDE RECORDS SUMMARY | ~2019-10-11 | XMS | Encounter Summary ---
Demographics + + + | Address | [address] | | | [place] [address] | + + + | Home Phone | | + + + | Preferred Language | Unknown | + + + | Marital Status | Unknown | + + + | Buddhism Affiliation | Unknown | + + + | Race | Unknown | + + + | Ethnic Group | Unknown | + + + Author + + + | Author | [facility] | | | and [place] | + + + | Organization | [facility] | | | and [...] Team Providers + +------+ + | Care Optometrist President/Practice Owner Name | Role | Phone | + +------+ + PCP | Unavailable | + +------+ + Encounter Details +--------+ + + + + | Date | Type | Department | Care Team | Description | +--------+ + + + + | 07/06/ | Abstract | [facility] | DATA MIGRATION [facility] | | | 2011 | | Conversion Location | SR | | | | | [phone] | | | +--------+ + + + [...] + + + | Blood Pressure | 90/70 | 03/20/2010 12:00 AM | | | | | PDT | | + + + + + | Pulse | - | - | | + + + + + | Temperature | - | - | | + + + + + | Respiratory Rate | - | - | | + + + + + | Oxygen Saturation | - | - | | + + + + + | Inhaled Oxygen | - | - | | | Concentration | | | | + + + + + | Weight | 77.3 kg (170 lb 8 | 03/20/2010 12:00 AM | | | | oz) | PDT | | + + + + + | Height | 167.6 cm (5' 6") | 03/20/2010 12:00 AM | | | | | PDT | | + + + + + | Body Mass Index | 27.52 | 03/20/2010 12:00 AM | | | | | PDT | | + + + + + documented in this encounter Plan of Treatment Not on filedocumented as of this encounter Visit Diagnoses Not on filedocumented in this encounter
--- OUTSIDE RECORDS SUMMARY | ~2019-10-11 | XMS | Encounter Summary ---
Demographics + + + | Address | [address] | | | [place] [address] | + + + | Home Phone | | + + + | Preferred Language | Unknown | + + + | Marital Status | Unknown | + + + | Mosque Affiliation | Unknown | + + + | Race | Unknown | + + + | Ethnic Group | Unknown | + + + Author + + + | Author | [facility] | | | and [place] | + + + | Organization | [facility] | | | and [...] Team Providers + +------+ + | Care Bumper Operator Name | Role | Phone | + +------+ + | Rubi Mcclure | PCP | | | MD | | | + +------+ + Encounter Details +--------+ + + + + | Date | Type | Department | Care Team | Description | +--------+ + + + + | 05/16/ | Hospital | [facility] | Conversion | Diagnosis unknown | | 2018 | Encounter | CONVERSION [address] | Transaction, | | | | | [place] | Provider Unknown | | | | | [place] | [phone] | | | | | [address] | | | | | [phone] | | | +--------+ + + + [...]
--- OUTSIDE RECORDS SUMMARY | ~2019-10-11 | XMS | Encounter Summary ---
Demographics + + + | Address | [address] | | | [place] [address] | + + + | Home Phone | | + + + | Preferred Language | Unknown | + + + | Marital Status | Unknown | + + + | Mandaeism Affiliation | Unknown | + + + | Race | Unknown | + + + | Ethnic Group | Unknown | + + + Author + + + | Author | [facility] | | | and [place] | + + + | Organization | [facility] | | [...] Team Providers + +------+ + | Care Venetian Blind Washer Name | Role | Phone | + +------+ + PCP | Unavailable | + +------+ + Encounter Details +--------+ + + + + | Date | Type | Department | Care Team | Description | +--------+ + + + + | 11/20/ | [facility] | [facility] | Te Child | | | 2008 | Encounter | HOSPITAL EMERGENCY | MD [address] | | | | | CENTER [address] | [place] | | | | | [place] | [place] [address] | | | | | [address] | [phone] | | | | | [phone] | | | +--------+ + + + [...]
--- OUTSIDE RECORDS SUMMARY | ~2019-10-11 | XMS | Encounter Summary ---
Demographics + + + | Address | [address] | | | [place] [address] | + + + | Home Phone | | + + + | Preferred Language | Unknown | + + + | Marital Status | Unknown | + + + | Yazidism Affiliation | Unknown | + + + | Race | Unknown | + + + | Ethnic Group | Unknown | + + + Author + + + | Author | [facility] | | | and [place] | + + + | Organization | [facility] | [...] Team Providers + +------+ + | Care Embedded Firmware Engineer Name | Role | Phone | + +------+ + PCP | Unavailable | + +------+ + Encounter Details +--------+ + + + + | Date | Type | Department | Care Team | Description | +--------+ + + + + | 11/21/ | Hospital | [facility] | Mehrdad Cohen | | | 2008 | Encounter | HOSPITAL EMERGENCY | MD [address] | | | | | CENTER [address] | [address] | | | | | [address] [place] | [place] [address] | | | | | [address] | [phone] | | | | | [phone] | | | +--------+ + + + [...]
--- OUTSIDE RECORDS SUMMARY | ~2019-10-11 | XMS | Encounter Summary ---
Demographics + + + | Address | [address] | | | [place] [address] | + + + | Home Phone | | + + + | Preferred Language | Unknown | + + + | Marital Status | Unknown | + + + | Caodaism Affiliation | Unknown | + + + | Race | Unknown | + + + | Ethnic Group | Unknown | + + + Author + + + | Author | [facility] | | | and [place] | + + + | Organization | [facility] | | | [...] Team Providers + +------+ + | Care Topper Press Operator Name | Role | Phone | + +------+ + PCP | Unavailable | + +------+ + Encounter Details +--------+ + + + + | Date | Type | Department | Care Team | Description | +--------+ + + + + | 12/03/ | Hospital | [facility] | [place], | | | 2011 | Encounter | HOSPITAL [facility] | Simon Goldstein MD | | | | | [address] | [address] [facility] | | | | | [place] | [place], | | | | | [address] | [place] [address] | | | | | [phone] | [phone] | | | | | | | [...]
--- OUTSIDE RECORDS SUMMARY | ~2019-10-11 | XMS | Encounter Summary ---
Demographics + + + | Address | [address] | | | [place] [address] | + + + | Home Phone | | + + + | Preferred Language | Unknown | + + + | Marital Status | Unknown | + + + | Gnosticist Affiliation | Unknown | + + + | Race | Unknown | + + + | Ethnic Group | Unknown | + + + Author + + + | Author | [facility] | | | and [place] | + + + | Organization | [facility] | | | [...] Team Providers + +------+ + | Care Construction Executive Name | Role | Phone | + +------+ + PCP | Unavailable | + +------+ + Encounter Details +--------+ + + + + | Date | Type | Department | Care Team | Description | +--------+ + + + + | 01/25/ | [facility] | [facility] | [place] | | | 2009 | Encounter | [facility] | MD [address] | | | | | [address] | [place] | | | | | [place] | [place] [address] | | | | | [address] | [phone] | | | | | [phone] | | | +--------+ + + + [...]
--- OUTSIDE RECORDS SUMMARY | ~2019-10-11 | XMS | Encounter Summary ---
Demographics + + + | Address | [address] | | | [place] [address] | + + + | Home Phone | | + + + | Preferred Language | Unknown | + + + | Marital Status | Unknown | + + + | Protestant Affiliation | Unknown | + + + | Race | Unknown | + + + | Ethnic Group | Unknown | + + + Author + + + | Author | [facility] | | | and [place] | + + + | Organization | [facility] | | | [...] Team Providers + +------+ + | Care Heavy Equipment Operator Name | Role | Phone | + +------+ + PCP | Unavailable | + +------+ + Encounter Details +--------+ + + + + | Date | Type | Department | Care Team | Description | +--------+ + + + + | 09/25/ | [facility] | [facility] | [place] | | | 2015 | Encounter | [facility] | [address] | | | | | MEDICAL CL[facility] | [address] [place], [place] | | | | | [address] [facility], | [address] | | | | | [place] [address] | | | | | | [phone] | | | +--------+ + + + [...]
--- OUTSIDE RECORDS SUMMARY | ~2019-10-11 | XMS | Encounter Summary ---
Demographics + + + | Address | [address] | | | [place] [address] | + + + | Home Phone | | + + + | Preferred Language | Unknown | + + + | Marital Status | Unknown | + + + | Sikh Affiliation | Unknown | + + + | Race | Unknown | + + + | Ethnic Group | Unknown | + + + Author + + + | Author | [facility] | | | and [place] | + + + | Organization | [facility] | | [...] Team Providers + +------+ + | Care Final Inspection Supervisor Name | Role | Phone | + +------+ + PCP | Unavailable | + +------+ + Encounter Details +--------+ + + + + | Date | Type | Department | Care Team | Description | +--------+ + + + + | 09/18/ | [facility] | [facility] | Tony Dewitt MD | | | 2011 | Encounter | [facility] | [address] | | | | | MED[address] CL[facility] | [place], [place] | | | | | [address] [place], | [address] | | | | | [place] [address] | | | | | | [phone] | | | +--------+ + + + [...]
--- OUTSIDE RECORDS SUMMARY | ~2019-10-11 | XMS | Encounter Summary ---
Demographics + + + | Address | [address] | | | [place] [address] | + + + | Home Phone | | + + + | Preferred Language | Unknown | + + + | Marital Status | Unknown | + + + | Christian Affiliation | Unknown | + + + [...] Team Providers + +------+ + | Care Scouring Machine Operator Name | Role | Phone | + +------+ + PCP | Unavailable | + +------+ + Encounter Details +--------+ + + + + | Date | Type | Department | Care Team | Description | +--------+ + + + + | 06/29/ | [facility] | [facility] | [place], | | | 2011 | Encounter | [facility] | Simon Goldstein MD | | | | | MEDICAL CLIN[facility] [address] | [address] [facility] | | | | | [address] [facility], | [facility], | | | | | [place] [address] | [place] [address] | | | | | [phone] | [phone] | | | | | | | [...]
--- OUTSIDE RECORDS SUMMARY | ~2019-10-11 | XMS | Clinical Summary ---
Demographics + + + | Address | [address] | | | [place] [address] | + + + | Home Phone | | + + + | Preferred Language | Unknown | + + + | Marital Status | Unknown | + + + | Mormonism Affiliation | Unknown | + + + | Race | Unknown | + + + | Ethnic Group | Unknown | + + + Author + + + | Author | [facility] | | | and [place] | + + + | Organization | [facility] | | | [...] Team Providers + +------+ + | Care Cloth Bleaching Range Tender Name | Role | Phone | + +------+ + | Brigitte Law MD | PCP | | + +------+ + Allergies + + + + + + | Active Allergy | Reactions | Severity | Noted | Comments | | | | | Date | | + + + + + + | Cortisone | Palpitations | Medium | 07/02/20 | | | | | | 17 | | + + + + + + | Pork-Derived | Rash | Medium | 06/01/20 | | | Products | | | 18 | | + + + + + + | Uncoded | Unknown | High | 05/28/20 | | | Nonscreenable | | | 19 | | | Allergen | | | | | + + + + + + Medications + + + +---------+------+------+-------+ | Medication | Sig | Dispensed | Refills | Star | End | Statu | | | | | | t | Date | s | | | | | | Date | | | + + + +---------+------+------+-------+ | levothyroxine | Take 175 mcg by | | 0 | | | Activ | | (SYNTHROID) 175 MCG | mouth every morning | | | | | e | | tablet | (before breakfast). | | | | | | + + + +---------+------+------+-------+ | diazePAM (VALIUM) | Take 0.5 tablets by | 8 | 0 | 09/0 | | Activ | | 10 MG tablet | mouth every 8 hours | tablet | | 07/13 | | e | | | as needed. | | | 17 | | | + + + +---------+------+------+-------+ +---+ + | | Additional | | | informationPatient | | | not taking. Reported | | | on 10/22/2017 2:55 | | | PM | +---+ + + + +--------+---+------+---+-------+ | naproxen sodium | Take 1 tablet by | 30 | 0 | 09/0 | | Activ | | (ANAPROX) 550 MG | mouth Twice daily | tablet | | 07/13 | | e | | tablet | as needed. | | | 17 | | | + + +--------+---+------+---+-------+ | aspirin 81 MG | | | 0 | | | Activ | | tablet | | | | | | e | + + +--------+---+------+---+-------+ | buPROPion | | | 0 | 09/0 | | Activ | | (WELLBUTRIN SR) 150 | | | | 4/20 | | e | | mg 12 hr tablet | | | | 18 | | | + + +--------+---+------+---+-------+ | carisoprodol | 1 Tablet twice daily | | 0 | 11/2 | | Activ | | (SOMA) 350 mg tablet | ORAL | | | 4/20 | | e | | | | | | 15 | | | + + +--------+---+------+---+-------+ | diclofenac | 1 Gel four times | | 0 | 11/2 | | Activ | | (VOLTAREN) 1% GEL | daily PRN | | | 5/20 | | e | | | Transdermal | | | 15 | | | + + +--------+---+------+---+-------+ | | Take 1 tablet by | | 0 | 11/1 | | Activ | | HYDROcodone-acetamin | mouth every 6 (six) | | | 4/20 | | e | | ophen (NORCO) 5-325 | hours as needed for | | | 18 | | | | mg per tablet | Pain. | | | | | | + + +--------+---+------+---+-------+ | omega-3 acid ethyl | | | 0 | 09/0 | | Activ | | esters (LOVAZA) 1 g | | | | 4/20 | | e | | capsule | | | | 18 | | | + + +--------+---+------+---+-------+ | oxyCODONE | 1 Tablet four times | | 0 | 04/2 | | Activ | | (ROXICODONE) 15 mg | daily ORAL | | | 5/20 | | e | | immediate release | | | | 16 | | | | tablet | | | | | | | + + +--------+---+------+---+-------+ | albuterol 90 | | | 0 | 04/1 | | Activ | | mcg/puff inhaler | | | | 7/20 | | e | | | | | | 19 | | | + + +--------+---+------+---+-------+ | doxycycline | | | 0 | 04/1 | | Activ | | (ADOXA) 100 MG | | | | 1/20 | | e | | tablet | | | | 19 | | | + + +--------+---+------+---+-------+ | FLUoxetine | | | 0 | 01/1 | | Activ | | (PROZAC) 10 mg | | | | 4/20 | | e | | capsule | | | | 19 | | | + + +--------+---+------+---+-------+ | hydrOXYzine | | | 0 | 04/0 | | Activ | | hydrochloride | | | | 2/20 | | e | | (ATARAX) 25 mg | | | | 19 | | | | tablet | | | | | | | + + +--------+---+------+---+-------+ | hydrOXYzine | | | 0 | 05/0 | | Activ | | (VISTARIL) 50 MG | | | | 2/20 | | e | | capsule | | | | 19 | | | + + +--------+---+------+---+-------+ | levothyroxine | | | 0 | 04/1 | | Activ | | (SYNTHROID) 200 mcg | | | | 7/20 | | e | | tablet | | | | 19 | | | + + +--------+---+------+---+-------+ | oseltamivir | | | 0 | 02/0 | | Activ | | (TAMIFLU) 75 mg | | | | 7/20 | | e | | capsule | | | | 19 | | | + + +--------+---+------+---+-------+ | PARoxetine (PAXIL) | | | 0 | 07/2 | | Activ | | 10 mg tablet | | | | 5/20 | | e | | | | | | 18 | | | + + +--------+---+------+---+-------+ Active Problems + + + | Problem | Noted Date | + + + | Facet arthritis of lumbosacral region | 06/01/2018 | + + + | Lumbar radicular pain | 06/01/2018 | + + + | Pars defect of lumbar spine | 06/01/2018 | + + + | Sacroiliac joint pain | 06/01/2018 | + + + | Spondylosis of lumbar spine | 06/01/2018 | + + + | Thoracic degenerative disc disease | 06/01/2018 | + + + | Thoracic disc herniation | 06/01/2018 | + + + | Chronic low back pain | 12/22/2015 | + + + | Seizures | 09/05/2013 | + + + | Hypothyroidism | 02/10/2010 | + + + | Back pain | | + + + Family History + + +------+ + | Medical History | Relation | Name | Comments | + + +------+ + | Prostate cancer | Father | | | + + +------+ + | Other (see comment) | Mother | | Heart Problems | + + +------+ + + +------+ + + | Relation | Name | Status | Comments | + +------+ + + | Father | | Alive | | + +------+ + + | Father | | | | + +------+ + + | Mother | | | | + +------+ + + | Mother | | | | + +------+ + + Social History + + + +--------+------+ | Tobacco Use | Types | Packs/Day | Years | Date | | | | | Used | | + + + +--------+------+ | Unknown If Ever | Cigarettes | 0.5 | | | | Smoked | | | | | + + + +--------+------+ + +------+---+---+ | Smokeless Tobacco: | Chew | | | | Current User | | | | + +------+---+---+ + + | Comments: Snuff | + + + + +---------+ + | Alcohol Use [...] recent travel history available. | + + Last Filed Vital Signs + + + + + | Vital Sign | Reading | Time Taken | Comments | + + + + + | Blood Pressure | 127/77 | 09/06/2018 10:18 AM | | | | | PST | | + + + + + | Pulse | 88 | 09/06/2018 10:18 AM | | | | | PST | | + + + + + | Temperature | 37.1 C (98.7 F) | 09/06/2018 10:18 AM | | | | | PST | | + + + + + | Respiratory Rate | 12 | 09/06/2018 10:18 AM | | | | | PST | | + + + + + | Oxygen Saturation | 99% | 10/22/2017 2:52 PM | | | | | PST | | + + + + + | Inhaled Oxygen | - | - | | | Concentration | | | | + + + + + | Weight | 82.6 kg (182 lb) | 08/09/2018 10:09 AM | | | | | PDT | | + + + + + | Height | 165.1 cm (5' 5") | 08/09/2018 10:09 AM | | | | | PDT | | + + + + + | Body Mass Index | 30.29 | 08/09/2018 10:09 AM | | | | | PDT | | + + + + + Plan of Treatment + + + + + | Health Maintenance | Due Date | Last Done | Comments | + + + + + | Vaccine: | | | | | Dtap/Tdap/Td (1 - | 7 | | | | Tdap) | | | | + + + + + | Adult Annual | | | | | Wellness Visit | 5 | | | + + + + + | Colorectal Cancer | | | | | Screening | 8 | | | | (Colonoscopy) | | | | + + + + + | Vaccine: Zoster (1 | | | | | of 2) | 8 | | | + + + + + | Vaccine: Influenza | | | | | (#1) | 9 | | | + + + + + Results Not on filefrom Last 3 Months Insurance + +--------+ +--------+ +---------+--------+ | Payer | Benefi | Subscriber | Effect | Phone | Address | Type | | | t Plan | ID | tip | | | | | | / | | Dates | | | | | | Group | | | | | | + +--------+ +--------+ +---------+--------+ | MEDICARE | MEDICA | [id number] | 06/24/20 | [phone] | | Medica | | | RE | | 15-Pre | 5 | | re | | | PART A | | sent | | | | | | AND B | | | | | | + +--------+ +--------+ +---------+--------+ | MEDICARE | MEDICA | [id number] | 10/22/ | [phone] | | Medica | | | RE | | 2017-P | 5 | | re | | | PART A | | resent | | | | | | AND B | | | | | | + +--------+ +--------+ +---------+--------+ | [place] | MEDICA | [id number] | 07/02/20 | [phone] | | Medica | | | ID | | 17-Pre | 2 | | id | | | [place] | | sent | | | | + +--------+ +--------+ +---------+--------+ | [place] | MEDICA | [id number] | 10/22/ | [phone] | | Medica | | | ID | | 2017-P | 2 | | id | | | [place] | | resent | | | | + +--------+ +--------+ +---------+--------+ + +--------+ +--------+ + + | Guarantor Name | Accoun | Relation to | Date | Phone | Billing Address | | | t Type | Patient | of | | | | | | | | | | + +--------+ +--------+ + + | Rodriguez Guerrero | Person | Self | [birth year] | | [address] | | | al/Fam | | 1970 | [phone] | [place] [address] | | | marj | | | 1 (Home) | | + +--------+ +--------+ + + | Rodriguez Guerrero | Person | Self | [birth year] | | [address] | | | al/Fam | | 1970 | [phone] | [place] [address] | | | marj | | | 1 (Home) | | + +--------+ +--------+ + + Advance Directives + + + + + | Type | Date Recorded | Patient | Explanation | | | | Cook Jelly | | + + + + + | Power of | | | | | Auto Travel Counselor | | | | + + + + + | Advance | 10/22/2017 | | | | Directive | 3:10 PM | | | + + + + +
--- OUTSIDE RECORDS SUMMARY | ~2019-10-11 | XMS | Encounter Summary ---
Demographics + + + | Address | [address] | | | [place] [address] | + + + | Home Phone | | + + + | Preferred Language | Unknown | + + + | Marital Status | Unknown | + + + | Presybeterian Affiliation | Unknown | + + + | Race | Unknown | + + + | Ethnic Group | Unknown | + + + Author + + + | Author | [facility] | | | and [place] | + + + | Organization | [facility] | | | [...] Team Providers + +------+ + | Care Bait Maker Name | Role | Phone | + +------+ + PCP | Unavailable | + +------+ + Encounter Details +--------+ + + + + | Date | Type | Department | Care Team | Description | +--------+ + + + + | 09/25/ | [facility] | [facility] | Ren, Content | | | 2015 | Encounter | [facility] | [address] | | | | | MEDICAL CL[facility] [address] | [address] [facility], | | | | | [address] [facility], | [place] [address] | | | | | [place] [address] | [phone] | | | | | [phone] | | | +--------+ + + + [...]
--- OUTSIDE RECORDS SUMMARY | ~2019-10-11 | XMS | Encounter Summary ---
Demographics + + + | Address | [address] | | | [place] [address] | + + + | Home Phone | | + + + | Preferred Language | Unknown | + + + | Marital Status | Unknown | + + + | Temple Affiliation | Unknown | + + + | Race | Unknown | + + + | Ethnic Group | Unknown | + + + Author + + + | Author | [facility] | | | and [place] | + + + | Organization | [facility] | | | [...] Team Providers + +------+ + | Care Restaurant District Manager Name | Role | Phone | + +------+ + PCP | Unavailable | + +------+ + Encounter Details +--------+ + + + + | Date | Type | Department | Care Team | Description | +--------+ + + + + | 09/28/ | Hospital | [facility] | Tony Dewitt MD | | | 2011 | Encounter | [facility] | [address] | | | | | [address] | [place] | | | | | [place], [place] | [address] | | | | | [address] | | | | | | [phone] | | | +--------+ + + + [...]
--- OUTSIDE RECORDS SUMMARY | ~2019-10-11 | XMS | Encounter Summary ---
Demographics + + + | Address | [address] | | | [place] [address] | + + + | Home Phone | | + + + | Preferred Language | Unknown | + + + | Marital Status | Unknown | + + + | Mosque Affiliation | Unknown | + + + | Race | Unknown | + + + | Ethnic Group | Unknown | + + + Author + + + | Author | [facility] | | | and [place] | + + + | Organization | [facility] | | [...] +------+ + | Care Cloth Bleaching Range Operator Chief Name | Role | Phone | + +------+ + PCP | Unavailable | + +------+ + Encounter Details +--------+ + + + + | Date | Type | Department | Care Team | Description | +--------+ + + + + | 12/08/ | Hospital | [facility] | [place], | | | 2012 | Encounter | [facility] | Simon Goldstein MD | | | | | [address] [place] | [address] [facility] | | | | | [place] | [place], | | | | | [address] | [place] [address] | | | | | [phone] | [phone] | | | | | | | [...]
--- OUTSIDE RECORDS SUMMARY | ~2019-10-11 | XMS | Encounter Summary ---
Demographics + + + | Address | [address] | | | [place] [address] | + + + | Home Phone | | + + + | Preferred Language | Unknown | + + + | Marital Status | Unknown | + + + | Buddhist Affiliation | Unknown | + + + [...] Team Providers + +------+ + | Care Scrap Hoist Operator Name | Role | Phone | + +------+ + PCP | Unavailable | + +------+ + Encounter Details +--------+ + + + + | Date | Type | Department | Care Team | Description | +--------+ + + + + | 06/20/ | [facility] | [facility] | Altagracia Morrison | | | 2014 | Encounter | [facility] | G, MANAGER COMMUNITY RELATIONS [address] | | | | | MEDICAL CLIN[address] | [place], [place] | | | | | [address] [place], | [address] | | | | | [place] [address] | [phone] | | | | | [phone] | | | +--------+ + + + [...]
--- OUTSIDE RECORDS SUMMARY | ~2019-10-11 | XMS | Encounter Summary ---
Demographics + + + | Address | [address] | | | [place] [address] | + + + | Home Phone | | + + + | Preferred Language | Unknown | + + + | Marital Status | Unknown | + + + | Uatsdin Affiliation | Unknown | + + + | Race | Unknown | + + + | Ethnic Group | Unknown | + + + Author + + + | Author | [facility] | | | and [place] | + + + | Organization | [facility] | | | [...] Team Providers + +------+ + | Care First Front Ventilator Name | Role | Phone | + +------+ + PCP | Unavailable | + +------+ + Encounter Details +--------+ + + + + | Date | Type | Department | Care Team | Description | +--------+ + + + + | 09/23/ | Hospital | [facility] | Tony Dewitt MD | | | 2011 | Encounter | [facility] | [address] | | | | | MEDICAL CLIN[address] | [place], [place] | | | | | [address] [place], | [address] | | | | | [place] [address] | | | | | | [phone] | | | +--------+ + + + [...]
--- OUTSIDE RECORDS SUMMARY | ~2019-10-11 | XMS | Encounter Summary ---
Demographics + + + | Address | [address] | | | [place] [address] | + + + | Home Phone | | + + + | Preferred Language | Unknown | + + + | Marital Status | Unknown | + + + | Bahai Affiliation | Unknown | + + + | Race | Unknown | + + + | Ethnic Group | Unknown | + + + Author + + + | Author | [facility] | | | and [place] | + + + | Organization | [facility] | | | and [...] Team Providers + +------+ + | Care Wallpaper Scraper Name | Role | Phone | + +------+ + PCP | Unavailable | + +------+ + Encounter Details +--------+ + + + + | Date | Type | Department | Care Team | Description | +--------+ + + + + | 11/30/ | [facility] | [facility] | [place], | | | 2012 | Encounter | [facility] | Simon Goldstein MD | | | | | MEDICAL CLIN[address] | [address] [facility] | | | | | [address] [facility], | [facility], | | | | | [place] [address] | [place] [address] | | | | | [phone] | [phone] | | | | | | | [...]
--- OUTSIDE RECORDS SUMMARY | ~2019-10-11 | XMS | Encounter Summary ---
Demographics + + + | Address | [address] | | | [place] [address] | + + + | Home Phone [...] + + + | Author | [facility] | | | and [place] | + + + | Organization | [facility] | | [...] Team Providers + +------+ + | Care Chemical Process Project Engineer Name | Role | Phone | + +------+ + PCP | Unavailable | + +------+ + Encounter Details +--------+ + + + + | Date | Type | Department | Care Team | Description | +--------+ + + + + | 10/05/ | [facility] | [facility] | Te Child | | | 2010 | Encounter | [facility] | [address] | | | | | [address] | [place] | | | | | [place] | [place] [address] | | | | | [address] | [phone] | | | | | [phone] | | | +--------+ + + + [...]
--- OUTSIDE RECORDS SUMMARY | ~2019-10-11 | XMS | Encounter Summary ---
Demographics + + + | Address | [address] | | | [place] [address] | + + + | Home Phone | | + + + | Preferred Language | Unknown | + + + | Marital Status | Unknown | + + + | Yazidism Affiliation | Unknown | + + + | Race | Unknown | + + + | Ethnic Group | Unknown | + + + Author + + + | Author | [facility] | | | and [place] | + + + | Organization | [facility] | | | [...] Team Providers + +------+ + | Care Lead Java Programmer Name | Role | Phone | + [...] | | [address] | [address] [facility] | | | | | [place] | [place], | | | | | [address] | [place] [address] | | | | | [phone] | [phone] | | | | | | | [...]
--- OUTSIDE RECORDS SUMMARY | ~2019-10-11 | XMS | Encounter Summary ---
Demographics + + + | Address | [address] | | | [place] [address] | + + + | Home Phone | | + + + | Preferred Language | Unknown | + + + | Marital Status | Unknown | + + + | Jain Affiliation | Unknown | + + + | Race | Unknown | + + + | Ethnic Group | Unknown | + + + Author + + + | Author | [facility] | | | and [place] | + + + | Organization | [facility] | | | and [...] Team Providers + +------+ + | Care Client Relations Associate Name | Role | Phone | + +------+ + PCP | Unavailable | + +------+ + Encounter Details +--------+ + + + + | Date | Type | Department | Care Team | Description | +--------+ + + + + | 09/08/ | [facility] | [facility] | Raji José | | | 2008 | Encounter | [facility]ITAL [facility] | MD [address] | | | | | [place] [address] | [facility] | | | | | [address] [place] | [place] [address] | | | | | [address] | [phone] | | | | | [phone] | | | +--------+ + + + [...]
--- OUTSIDE RECORDS SUMMARY | ~2019-10-11 | XMS | Encounter Summary ---
Demographics + + + | Address | [address] | | | [place] [address] | + + + | Home Phone | | + + + | Preferred Language | Unknown | + + + | Marital Status | Unknown | + + + | Buddhist Affiliation | Unknown | + + + | Race | Unknown | + + + | Ethnic Group | Unknown | + + + Author + + + | Author | [facility] | | | and [place] | + + + | Organization | [facility] | | [...] Team Providers + +------+ + | Care Pie Crimping Machine Operator Name | Role | Phone | + +------+ + | Rubi Mcclure | PCP | | | MD | | | + +------+ + Encounter Details +--------+ + + + + | Date | Type | Department | Care Team | Description | +--------+ + + + + | 04/14/ | Imaging | [facility] | Provider, | | | 2018 | Exam | [facility] | [address] | | | | | IMAGING | [address] | | | | | [phone] | [place] [address] | | +--------+ + + + + [...] MRI LUMBAR SPINE WO | Routin | 09/28/2012 | | Results for this | | CONTRAST | e | 1:50 PM | | procedure are in the | | | | PST | | results section. | + +--------+ + + + documented in this encounter Results MRI Lumbar Spine wo Contrast (09/28/2012 1:50 PM PST) + + | Specimen | + + | | + + + + + | Narrative | Performed At | + + + | External films for comparison only | [facility] | | | | | No results will be in the chart. | | + + + + +---------+ + + | Performing | Address | City/State/Zipcode | Phone Number | | Organization | | | | + +---------+ + + | [facility] | | | | + +---------+ + + documented in this encounter Visit Diagnoses Not on filedocumented in this encounter"
--- OUTSIDE RECORDS SUMMARY | ~2019-10-11 | XMS | Encounter Summary ---
Demographics + + + | Address | [address] | | | [place] [address] | + + + | Home Phone | | + + + | Preferred Language | Unknown | + + + | Marital Status | Unknown | + + + | Faith Affiliation | Unknown | + + + | Race | Unknown | + + + | Ethnic Group | Unknown | + + + Author + + + | Author | [facility] | | | and [place] | + + + | Organization | [facility] | | | [...] Team Providers + +------+ + | Care Scuba Diving Teacher Name | Role | Phone | + +------+ + PCP | Unavailable | + +------+ + Encounter Details +--------+ + + + + | Date | Type | Department | Care Team | Description | +--------+ + + + + | 07/24/ | Hospital | [facility] | Altagracia Morrison | | | 2014 | Encounter | [facility] | G, FURNITURE MAKER [address] | | | | | [address] | [place] | | | | | [place] | [address] | | | | | [address] | [phone] | | | | | [phone] | | | +--------+ + + + [...] | + +--------+ + + + | TSH | Routin | 07/24/2015 | | Results for this | | | e | 12:30 PM | | procedure are in the | | | | PDT | | results section. | + +--------+ + + + documented in this encounter Results TSH (07/24/2015 12:30 PM PDT) + +-------+ + + + | Component | Value | Ref Range | Performed | Pathologist | | | | | At | Signature | + +-------+ + + + | TSH | 17.4 | 0.40 - 4.68 | EXTERNAL | | | | | mIU/L | LAB | | + +-------+ + + + + + | Specimen | + + | | + + + +---------+ + + | Performing | Address | City/State/Zipcode | Phone Number | | Organization | | | | + +---------+ + + | EXTERNAL LAB | | | | + +---------+ + + documented in this encounter Visit Diagnoses Not on filedocumented in this encounter"
--- OUTSIDE RECORDS SUMMARY | ~2019-10-11 | XMS | Encounter Summary ---
Demographics + + + | Address | [address] | | | [place] [address] | + + + | Home Phone | | + + + | Preferred Language | Unknown | + + + | Marital Status | Unknown | + + + | Mandaen Affiliation | Unknown | + + + [...] Team Providers + +------+ + | Care News Gathering Technician Name | Role | Phone | + +------+ + PCP | Unavailable | + +------+ + Encounter Details +--------+ + + + + | Date | Type | Department | Care Team | Description | +--------+ + + + + | 09/23/ | Hospital | [facility] | Tony Dewitt MD | | | 2011 | Encounter | [facility] | [address] | | | | | [facility] [facility] | [place], [place] | | | | | [address] [place], | [address] | | | | | [place] [address] | | | | | | [phone] | | | +--------+ + + + [...]
--- OUTSIDE RECORDS SUMMARY | ~2019-10-11 | XMS | Encounter Summary ---
Demographics + + + | Address | [address] | | | [place] [address] | + + + | Home Phone | | + + + | Preferred Language | Unknown | + + + | Marital Status | Unknown | + + + | Judaism Affiliation | Unknown | + + + | Race | Unknown | + + + | Ethnic Group | Unknown | + + + Author + + + | Author | [facility] | | | and [place] | + + + | Organization | [facility] | | | [...] Team Providers + +------+ + | Care Medical Lab Technologist Name | Role | Phone | + +------+ + PCP | Unavailable | + +------+ + Encounter Details +--------+ + + + + | Date | Type | Department | Care Team | Description | +--------+ + + + + | 06/20/ | Hospital | [facility] | Altagracia Morrison | | | 2014 | Encounter | [facility] | G, 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 | + +--------+ + + + | BASIC METABOLIC | Routin | 06/20/2015 | | Results for this | | PANEL | e | 4:38 PM | | procedure are in the | | | | PDT | | results section. | + +--------+ + + + documented in this encounter Results Drugs of Abuse, Screen, Urine (06/20/2015 4:38 PM PDT) + +-------+ + + + | Component | Value | Ref Range | Performed | Pathologist | | | | | At | Signature | + +-------+ + + + | THC RESULT | NEG | NEG ng/mL | EXTERNAL | | | | | | LAB | | + +-------+ + + + | Phencyclidi | NEG | NEG ng/mL | EXTERNAL | | | ne | | | LAB | | + +-------+ + + + | Cocaine | NEG | NEG ng/mL | EXTERNAL | | | | | | LAB | | + +-------+ + + + | Methampheta | NEG | NEG ng/mL | EXTERNAL | | | mine | | | LAB | | + +-------+ + + + | Opiates | NEG | NEG ng/mL | EXTERNAL | | | | | | LAB | | + +-------+ + + + | Amphetamine | NEG | NEG ng/mL | EXTERNAL | | | s | | | LAB | | + +-------+ + + + | Benzodiazep | NEG | NEG ng/mL | EXTERNAL | | | chandrakant | | | LAB | | | Screen, | | | | | | Urine | | | | | + +-------+ + + + | TCA Scrn | POS | NEG ng/mL | EXTERNAL | | | | | | LAB | | + +-------+ + + + | Methadone | NEG | NEG ng/mL | EXTERNAL | | | Screen, | | | LAB | | | Urine | | | | | + +-------+ + + + | Barbiturate | NEG | NEG ng/mL | EXTERNAL | | | s | | | LAB | | + +-------+ + + + | Oxycodone | POS | NEG ng/mL | EXTERNAL | | | | | | LAB | | + +-------+ + + + | Propoxyphen | NEG | NEG ng/mL | EXTERNAL | | | e | | | LAB | | + +-------+ + + + | Buprenorphi | NEG | NEG ng/mL | EXTERNAL | | | ne | | | LAB | | + +-------+ + + + + + | Specimen | + + | | + + + +---------+ + + | Performing | Address | City/State/Zipcode | Phone Number | | Organization | | | | + +---------+ + + | EXTERNAL LAB | | | | + +---------+ + + Basic Metabolic Panel (06/20/2015 4:38 PM PDT) + +-------+ + + + | Component | Value | Ref Range | Performed | Pathologist | | | | | At | Signature | + +-------+ + + + | Sodium | 135 | 132 - 143 | EXTERNAL | | | | | mmol/L | LAB | | + +-------+ + + + | Potassium | 3.9 | 3.3 - 4.9 | EXTERNAL | | | | | mmol/L | LAB | | + +-------+ + + + | Cl | 103 | 95 - 108 mmol/L | EXTERNAL | | | | | | LAB | | + +-------+ + + + | CO2 | 29 | 23 - 34 mmol/L | EXTERNAL | | | | | | LAB | | + +-------+ + + + | Anion Gap | 3 | 7 - 16 | EXTERNAL | | | | | | LAB | | + +-------+ + + + | Calcium | 9.5 | 8.3 - 10.0 | EXTERNAL | | | | | mg/dL | LAB | | + +-------+ + + + | Glucose | 86 | 70 - 110 mg/dL | EXTERNAL | | | | | | LAB | | + +-------+ + + + | BUN, Bld | 20 | 5 - 26 mg/dL | EXTERNAL | | | | | | LAB | | + +-------+ + + + | Creatinine | 1.4 | 0.7 - 1.4 mg/dL | EXTERNAL | | | | | | LAB | | + +-------+ + + + | BUN/Creatin | 14.3 | 7.0 - 24.0 | EXTERNAL | | | ine Ratio | | RATIO | LAB | | + +-------+ + + + | GFR | 58 | >=60 | EXTERNAL | | | ESTIMATE | | mL/min/1.73m2 | LAB | | + +-------+ + [...]
--- OUTSIDE RECORDS SUMMARY | ~2019-10-11 | XMS | Clinical Summary ---
Demographics + + + | Address | [address] | | | [place] [address] | + + + | Home Phone | | + + + | Preferred Language | Unknown | + + + | Marital Status | Single | + + + | Mu-Ism Affiliation | Unknown | + + + | Race | Unknown | + + + | Ethnic Group | Unknown | + + + Author + + + | Author | [facility] (Historical as of | | | 06-09-19) | + + + | Organization | [facility] (Historical as of | | | 06-09-19) | + + + | Address | Unknown | + + + | Phone | Unavailable | + + + Support + + +---------+ + | Name | Relationship | Address | Phone | + + +---------+ + | Zakia Song | ECON | Unknown | | + + +---------+ + Care Team Providers + +------+ + | Care Border Guard Name | Role | Phone | + +------+ + | Brigitte Law MD | PP | | + +------+ + Allergies + [...] | + + + + + + Current Medications + + +--------+---------+------+------+-------+ | Prescription | Sig. | Disp. | Refills | Star | End | Statu | | | | | | t | Date | s | | | | | | Date | | | + + +--------+---------+------+------+-------+ | levothyroxine | | | | 07/2 | | Activ | | (SYNTHROID) 200 MCG | | | | 5/20 | | e | | tablet | | | | 18 | | | + + +--------+---------+------+------+-------+ | PARoxetine (PAXIL) | | | | 07/2 | | Activ | | 10 MG tablet | | | | 5/20 | | e | | | | | | 18 | | | + + +--------+---------+------+------+-------+ | aspirin 81 MG | Take 81 mg by mouth | | | | | Activ | | tablet | daily. | | | | | e | + + +--------+---------+------+------+-------+ | buPROPion | | | | 09/0 | | Activ | | (WELLBUTRIN SR) 150 | | | | 4/20 | | e | | MG 12 hr tablet | | | | 18 | | | + + +--------+---------+------+------+-------+ | omega-3 acid ethyl | | | | 09/0 | | Activ | | esters (LOVAZA) 1 g | | | | 4/20 | | e | | capsule | | | | 18 | | | + + +--------+---------+------+------+-------+ | | Take 1 tablet by | 20 | 0 | 11/1 | | Activ | | HYDROcodone-acetamin | mouth every 6 (six) | tablet | | 4/20 | | e | | ophen (NORCO) 5-325 | hours as needed for | | | 18 | | | | MG per tablet | Pain. | | | | | | + + +--------+---------+------+------+-------+ Active Problems + + + | Problem | Noted Date | + + + | Spondylosis of lumbar spine | 06/01/2018 | + + + | Lumbar radicular pain | 06/01/2018 | + + + | Pars defect of lumbar spine | 06/01/2018 | + + + | Sacroiliac joint pain | 06/01/2018 | + + + | Facet arthritis of lumbosacral region | 06/01/2018 | + + + | Thoracic degenerative disc disease | 06/01/2018 | + + + | Thoracic disc herniation | 06/01/2018 | + + + Family History + + +------+ + | Medical History | Relation | Name | Comments | + + +------+ + | Prostate cancer | Father | | | + + +------+ + | Heart Problems | Mother | | | + + +------+ + + +------+ + + | Relation | Name | Status | Comments | + +------+ + + | Father | | Alive | | + +------+ + + | Mother | | | | + +------+ + + Social History + +-------+ +--------+------+ | Tobacco Use | Types | Packs/Day | Years | Date | | | | | Used | | + +-------+ +--------+------+ | Unknown If Ever | | | | | | Smoked | | | | | + +-------+ +--------+------+ + +---+---+---+ | Smokeless Tobacco: | | | | | Current User | | | | + +---+---+---+ + + | Comments: Snuff | + + + + +---------+ + | Alcohol Use | Drinks/We | oz/Week | Comments | | | ek | | | + + +---------+ + | No | | | | + + +---------+ + + + + | Sex Assigned at | Date Recorded | | | | + + + | Not on file | | + + + Last Filed Vital Signs + + + + | Vital Sign | Reading | Time Taken | + + + + | Blood Pressure | 127/77 | 09/06/2018 10:17 AM PST | + + + + | Pulse | 88 | 09/06/2018 10:17 AM PST | + + + + | Temperature | 37.1 C (98.7 F) | 09/06/2018 9:11 AM PST | + + + + | Respiratory Rate | 12 | 09/06/2018 10:17 AM PST | + + + + | Oxygen Saturation | 95% | 09/06/2018 10:17 AM PST | + + + + | Inhaled Oxygen | - | - | | Concentration | | | + + + + | Weight | 82.6 kg (182 lb) | 08/09/2018 10:03 AM PDT | + + + + | Height | 165.1 cm (5' 5") | 08/09/2018 10:03 AM PDT | + + + + | Body Mass Index | 30.29 | 08/09/2018 10:03 AM PDT | + + + + Plan of Treatment + + + + + | Health Maintenance | Due Date | Last Done | Comments | + + + + + | Vaccine: | | | | | Dtap/Tdap/Td (1 - | 7 | | | | Tdap) | | | | + + + + + | Colon Cancer | | | | | Screening [...] filefrom Last 3 Months Insurance + +--------+ +------+-------+ + | Payer | Benefi | Subscriber | Type | Phone | Address | | | t Plan | ID | | | | | | / | | | | | | | Group | | | | | + +--------+ +------+-------+ + | MEDICARE | MEDICA | [id number] | | | [address] | | | RE | | | | [place] [phone] | | | IP-OP | | | | | + +--------+ +------+-------+ + | MEDICAID | MEDICA | [id number] | | | [address] | | | [place] | | | | [place] | | | [place] | | | | [address] | + +--------+ +------+-------+ + + +--------+ +--------+ + + | Guarantor Name | Accoun | Relation to | Date | Phone | Billing Address | | | t Type | Patient | of | | | | | | | | | | + +--------+ +--------+ + + | GISELLA BERGER | Person | Self [birth year] | Home: | [address] | | | al/Fam | | 1970 | [phone] | [place] [address] | | | marj | | | [phone] | | + +--------+ +--------+ + +
--- OUTSIDE RECORDS SUMMARY | ~2019-10-11 | XMS | Encounter Summary ---
Demographics + + + | Address | [address] | | | [place] [address] | + + + | Home Phone | | + + + | Preferred Language | Unknown | + + + | Marital Status | Unknown | + + + | Tenriism Affiliation | Unknown | + + + | Race | Unknown | + + + | Ethnic Group | Unknown | + + + Author + + + | Author | [facility] | | | and [place] | + + + | Organization | [facility] | | [...] Team Providers + +------+ + | Care Digital Sales Assistant Name | Role | Phone | + +------+ + PCP | Unavailable | + +------+ + Encounter Details +--------+ + + + + | Date | Type | Department | Care Team | Description | +--------+ + + + + | 07/04/ | Hospital | [facility] | Boaz Barragan | | | 2008 | Encounter | [facility] | MD [address] | | | | | [address] | [place] | | | | | [place] | [address] | | | | | [address] | [phone] | | | | | [phone] | | | +--------+ + + + [...]
--- OUTSIDE RECORDS SUMMARY | ~2019-10-11 | XMS | Encounter Summary ---
Demographics + + + | Address | [address] | | | [place] [address] | + + + | Home Phone | | + + + | Preferred Language | Unknown | + + + | Marital Status | Unknown | + + + | Amish Affiliation | Unknown | + + + [...] Team Providers + +------+ + | Care Supply Chain Manager Name | Role | Phone | + +------+ + PCP | Unavailable | + +------+ + Encounter Details +--------+ + + + + | Date | Type | Department | Care Team | Description | +--------+ + + + + | 10/02/ | Hospital | [facility] | Tony Dewitt MD | | | 2011 | Encounter | [facility] | [address] | | | | | [address] | [place], [place] | | | | | [place], [place] | [address] | | | | | [address] | | | | | | [phone] | | | +--------+ + + + [...]
--- OUTSIDE RECORDS SUMMARY | ~2019-10-11 | XMS | Encounter Summary ---
Demographics + + + | Address | [address] | | | [place] [address] | + + + | Home Phone | | + + + | Preferred Language | Unknown | + + + | Marital Status | Unknown | + + + | Baptist Affiliation | Unknown | + + + | Race | Unknown | + + + | Ethnic Group | Unknown | + + + Author + + + | Author | [facility] | | | and [place] | + + + | Organization | [facility] | | [...] Team Providers + +------+ + | Care Cable Installer Repairer Helper Name | Role | Phone | + +------+ + PCP | Unavailable | + +------+ + Encounter Details +--------+ + + + + | Date | Type | Department | Care Team | Description | +--------+ + + + + | 02/12/ | Hospital | [facility] | Rosey, | | | 2009 | Encounter | [facility] X[facility] | Simon Goldstein MD | | | | [address] | [address] [facility] | | | | | [place] | [place], | | | | | [address] | [place] [address] | | | | | [phone] | [phone] | | | | | | | [...]
--- OUTSIDE RECORDS SUMMARY | ~2019-10-11 | XMS | Encounter Summary ---
Demographics + + + | Address | [address] | | | [place] [address] | + + + | Home Phone | | + + + | Preferred Language | Unknown | + + + | Marital Status | Unknown | + + + | Taoist Affiliation | Unknown | + + + | Race | Unknown | + + + | Ethnic Group | Unknown | + + + Author + + + | Author | [facility] | | | and [place] | + + + | Organization | [facility] | | | and [...] Team Providers + +------+ + | Care Waterproof Material Folder Name | Role | Phone | + +------+ + PCP | Unavailable | + +------+ + Encounter Details +--------+ + + + + | Date | Type | Department | Care Team | Description | +--------+ + + + + | 08/22/ | [facility] | [facility] | Tony Dewitt MD | | | 2015 | Encounter | [facility] | [address] | | | | | [address] | [place], [place] | | | | | [address] [place], | [address] | | | | | [place] [address] | | | | | | [phone] | | | +--------+ + + + [...]
--- OUTSIDE RECORDS SUMMARY | ~2019-10-11 | XMS | Encounter Summary ---
Demographics + + + | Address | [address] | | | [place] [address] | + + + | Home Phone | | + + + | Preferred Language | Unknown | + + + | Marital Status | Unknown | + + + | Gnosticism Affiliation | Unknown | + + + | Race | Unknown | + + + | Ethnic Group | Unknown | + + + Author + + + | Author | [facility] | | | and [place] | + + + | Organization | [facility] | | [...] Team Providers + +------+ + | Care Back Facer Name | Role | Phone | + +------+ + PCP | Unavailable | + +------+ + Encounter Details +--------+ + + + + | Date | Type | Department | Care Team | Description | +--------+ + + + + | 01/23/ | Hospital | [facility] | Te Child | | | 2009 | Encounter | H[facility]PITAL EM[facility] | MD [address] | | | | | [address] | [place] | | | | | [place] | [place] [address] | | | | | [address] | [phone] | | | | | [phone] | | | +--------+ + + + [...]
--- OUTSIDE RECORDS SUMMARY | ~2019-10-11 | XMS | Encounter Summary ---
Demographics + + + | Address | [address] | | | [place] [address] | + + + | Home Phone [...] + + + | Author | [facility] | | | and [place] | + + + | Organization | [facility] | | | [...] Team Providers + +------+ + | Care Supervisor Remelt Name | Role | Phone | + +------+ + PCP | Unavailable | + +------+ + Encounter Details +--------+ + + + + | Date | Type | Department | Care Team | Description | +--------+ + + + + | / | Hospital | [facility] | Tony Dewitt MD | | | 2016 | Encounter | [facility]ITAL [facility] | [address] | | | | | [address] | [place] | | | | | [place], [place] | [address] | | | | | [address] | | | | | | [phone] | | | +--------+ + + + [...]
--- OUTSIDE RECORDS SUMMARY | ~2019-10-11 | XMS | Encounter Summary ---
Demographics + + + | Address | [address] | | | [place] [address] | + + + | Home Phone | | + + + | Preferred Language | Unknown | + + + | Marital Status | Unknown | + + + | Oriental Orthodox Affiliation | Unknown | + + + | Race | Unknown | + + + | Ethnic Group | Unknown | + + + Author + + + | Author | [facility] | | | and [place] | + + + | Organization | [facility] | | [...] Team Providers + +------+ + | Care Risk Management Consultant Name | Role | Phone | + +------+ + PCP | Unavailable | + +------+ + Encounter Details +--------+ + + + + | Date | Type | Department | Care Team | Description | +--------+ + + + + | 06/20/ | Hospital | [facility] | Altagracia Morrison | | | 2014 | Encounter | [facility] | G, 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
--- OUTSIDE RECORDS SUMMARY | ~2019-10-11 | XMS | Clinical Summary ---
Demographics + + + | Address | [address] | | | [place] [address] | + + + | Home Phone | | + + + | Preferred Language | Unknown | + + + | Marital Status | Unknown | + + + | Worship Affiliation | Unknown | + + + | Race | Unknown | + + + | Ethnic Group | Unknown | + + + Author + + + | Author | [facility] | | | and [place] | + + + | Organization | [facility] | | | [...] Team Providers + +------+ + | Care Compliance Professional Name | Role | Phone | + [...] +--------+ +---------+--------+ | MEDICARE | MEDICA | [id number] | 06/24/20 | [phone] | | Medica | | | RE | | 15-Pre | 5 | | re | | | PART A | | sent | | | | | | AND B | | | | | | + +--------+ +--------+ +---------+--------+ | MEDICARE | MEDICA | [id number] | 10/22/ | [phone] | | Medica | | | RE | | 2017-P | 5 | | re | | | PART A | | resent | | | | | | AND B | | | | | | + +--------+ +--------+ +---------+--------+ | [place] | MEDICA | [id number] | 07/02/20 | [phone] | | Medica | | | ID | | 17-Pre | 2 | | id | | | [place] | | sent | | | | + +--------+ +--------+ +---------+--------+ | [place] | MEDICA | [id number] | 10/22/ | [phone] | | Medica [...] | 1970 | [phone] | [place] [address] | | | marj | | | 1 (Home) | | + +--------+ +--------+ + + | Rodirguez Guerrero | Person | Self | [birth year] | [address] | | | al/Fam | | 1970 | [phone] | [place] [address] | | | marj | | | 1 (Home) | | + +--------+ +--------+ + + Advance Directives + + + + + | Type | Date Recorded | Patient | Explanation | | | | Urban Design Consultant | | + + + + + | Power of | | | | | Supply Chain Vice President | | | | + + + + + | Advance | 10/22/2017 | | | | Directive | 3:10 PM | | | + + + + +
--- OUTSIDE RECORDS SUMMARY | ~2019-10-11 | XMS | Encounter Summary ---
Demographics + + + | Address | [address] | | | [place] [address] | + + + | Home Phone | | + + + | Preferred Language | Unknown | + + + | Marital Status | Unknown | + + + | Mandaen Affiliation | Unknown | + + + | Race | Unknown | + + + | Ethnic Group | Unknown | + + + Author + + + | Author | [facility] | | | and [place] | + + + | Organization | [facility] | | | [...] Team Providers + +------+ + | Care Childcare Provider Name | Role | Phone | + [...] | | [place] | [place] [address] | | | | | [address] | [phone] | | | | | [phone] | | | +--------+ + + + [...]
--- OUTSIDE RECORDS SUMMARY | ~2019-10-11 | XMS | Encounter Summary ---
Demographics + + + | Address | [address] | | | [place] [address] | + + + | Home Phone | | + + + | Preferred Language | Unknown | + + + | Marital Status | Unknown | + + + | Hoahaoism Affiliation | Unknown | + + + | Race | Unknown | + + + | Ethnic Group | Unknown | + + + Author + + + | Author | [facility] | | | and [place] | + + + | Organization | [facility] | | | [...] Team Providers + +------+ + | Care Retail Sales Merchandiser Name | Role | Phone | + +------+ + PCP | Unavailable | + +------+ + Encounter Details +--------+ + + + + | Date | Type | Department | Care Team | Description | +--------+ + + + + | 01/23/ | Hospital | [facility] | Te Child | | | 2009 | Encounter | HOSPITAL EMERG[facility]Y | MD [address] | | | | | C[address] | [place] | | | | | [place] | [place] [address] | | | | | [address] | [phone] | | | | | [phone] | | | +--------+ + + + [...]
--- OUTSIDE RECORDS SUMMARY | ~2019-10-11 | XMS | Encounter Summary ---
Demographics + + + | Address | [address] | | | [place] [address] | + + + | Home Phone | | + + + | Preferred Language | Unknown | + + + | Marital Status | Unknown | + + + | Zoroastrian Affiliation | Unknown | + + + [...] Providers + +------+ + | Care Supervisor Photostat Name | Role | Phone | + +------+ + PCP | Unavailable | + +------+ + Encounter Details +--------+ + + + + | Date | Type | Department | Care Team | Description | +--------+ + + + + | 04/21/ | Hospital | [facility] | [place], | | | 2009 | Encounter | HOSPITAL LABORATORY | Simon Goldstein MD | | | | | [address] | [address] [facility] | | | | | [place] | [place], | | | | | [address] | [place] [address] | | | | | [phone] | [phone] | | | | | | | [...]
--- OUTSIDE RECORDS SUMMARY | ~2019-10-11 | XMS | Encounter Summary ---
Demographics + + + | Address | [address] | | | [place] [address] | + + + | Home Phone | | + + + | Preferred Language | Unknown | + + + | Marital Status | Unknown | + + + | Jainism Affiliation | Unknown | + + + | Race | Unknown | + + + | Ethnic Group | Unknown | + + + Author + + + | Author | [facility] | | | and [place] | + + + | Organization | [facility] | | [...] Team Providers + +------+ + | Care Spiral Gear Generator Name | Role | Phone | + +------+ + PCP | Unavailable | + +------+ + Encounter Details +--------+ + + + + | Date | Type | Department | Care Team | Description | +--------+ + + + + | 08/10/ | [facility] | [facility] | [place], | | | 2012 | Encounter | [facility] | Simon Goldstein MD | | | | | MEDICAL CLIN[facility] [address] | [address] [facility] | | | | | [address] [facility], | [facility], | | | | | [place] [address] | [place] [address] | | | | | [phone] | [phone] | | | | | | | [...]
--- OUTSIDE RECORDS SUMMARY | ~2019-10-11 | XMS | Encounter Summary ---
Demographics + + + | Address | [address] | | | [place] [address] | + + + | Home Phone | | + + + | Preferred Language | Unknown | + + + | Marital Status | Unknown | + + + | Zoroastrianism Affiliation | Unknown | + + + [...] Team Providers + +------+ + | Care Wood Heel Attacher Name | Role | Phone | + [...] | | | [address] | [address] [facility] | | | | | [place] | [place], | | | | | [address] | [place] [address] | | | | | [phone] | [phone] | | | | | | | [...]
--- OUTSIDE RECORDS SUMMARY | ~2019-10-11 | XMS | Encounter Summary ---
Demographics + + + | Address | [address] | | | [place] [address] | + + + | Home Phone | | + + + | Preferred Language | Unknown | + + + | Marital Status | Unknown | + + + | Temple Affiliation | Unknown | + + + | Race | Unknown | + + + | Ethnic Group | Unknown | + + + Author + + + | Author | [facility] | | | and [place] | + + + | Organization | [facility] | | [...] Team Providers + +------+ + | Care Pbx Supervisor Name | Role | Phone | [...] + + | 07/02/ | Emergency | [facility] | | Acute bilateral | | 2017 | | HOSPITAL EM[facility]Y | | thoracic back pain | | | | CENTER [address] | | (Primary Dx) | | | | [address] [place], [place] | | | | | | [address] | | | | | | [phone] | | | +--------+ + + + [...] sent through Care Everywhere.Back Pain, Reli eving (Uzbek)Safety, Back: Bending (Uzbek)documented in this encounter Medications at Time of [...]
--- OUTSIDE RECORDS SUMMARY | ~2019-10-11 | XMS | Encounter Summary ---
Demographics + + + | Address | [address] | | | [place] [address] | + + + | Home Phone | | + + + | Preferred Language | Unknown | + + + | Marital Status | Unknown | + + + | Synagogue Affiliation | Unknown | + + + | Race | Unknown | + + + | Ethnic Group | Unknown | + + + Author + + + | Author | [facility] | | | and [place] | + + + | Organization | [facility] | | [...] Team Providers + +------+ + | Care Chef Instructor Name | Role | Phone | + [...] | | | [address] [place] | [address] [facility] | | | | | [place] | [place], | | | | | [address] | [place] [address] | | | | | [phone] | [phone] | | | | | | | [...]
--- OUTSIDE RECORDS SUMMARY | ~2019-10-11 | XMS | Encounter Summary ---
Demographics + + + | Address | [address] | | | [place] [address] | + + + | Home Phone | | + + + | Preferred Language | Unknown | + + + | Marital Status | Unknown | + + + | Hoahaoism Affiliation | Unknown | + + + | Race | Unknown | + + + | Ethnic Group | Unknown | + + + Author + + + | Author | [facility] | | | and [place] | + + + | Organization | [facility] | | | [...] Team Providers + +------+ + | Care Student Finance Specialist Name | Role | Phone | + +------+ + PCP | Unavailable | + +------+ + Encounter Details +--------+ + + + + | Date | Type | Department | Care Team | Description | +--------+ + + + + | 06/02/ | Hospital | [facility] | Mehrdad Cohen | | | 2009 | Encounter | HOSPITAL EM[facility]Y | [address] | | | | | [address] | [address] | | | | | [place] | [place] [address] | | | | | [address] | [phone] | | | | | [phone] | | | +--------+ + + + [...]
--- OUTSIDE RECORDS SUMMARY | ~2019-10-11 | XMS | Encounter Summary ---
Demographics + + + | Address | [address] | | | [place] [address] | + + + | Home Phone [...] Team Providers + +------+ + | Care Shackler Name | Role | Phone | + +------+ + PCP | Unavailable | + +------+ + Encounter Details +--------+ + + + + | Date | Type | Department | Care Team | Description | +--------+ + + + + | 11/17/ | [facility] | [facility] | Te Child | | | 2009 | Encounter | HOSPITAL EMER[facility]ENCY | [address] | | | | | [address] | [place] | | | | | [place] | [place] [address] | | | | | [address] | [phone] | | | | | [phone] | | | +--------+ + + + [...]
--- OUTSIDE RECORDS SUMMARY | ~2019-10-11 | XMS | Encounter Summary ---
Demographics + + + | Address | [address] | | | [place] [address] | + + + | Home Phone | | + + + | Preferred Language | Unknown | + + + | Marital Status | Unknown | + + + | Yazidi Affiliation | Unknown | + + + | Race | Unknown | + + + | Ethnic Group | Unknown | + + + Author + + + | Author | [facility] | | | and [place] | + + + | Organization | [facility] | | [...] Team Providers + +------+ + | Care Web Developer Programmer Name | Role | Phone | + +------+ + PCP | Unavailable | + +------+ + Encounter Details +--------+ + + + + | Date | Type | Department | Care Team | Description | +--------+ + + + + | 08/31/ | Hospital | [facility] | Ketty Ordonez, | | | 2011 | Encounter | HOSPITAL EMERGENCY | [facility] [address] | | | | | CENTER [address] | [place] | | | | | [place] | [address] | | | | | [address] | | | | | | [phone] | | | +--------+ + + + [...]
--- OUTSIDE RECORDS SUMMARY | ~2019-10-11 | XMS | Encounter Summary ---
Demographics + + + | Address | [address] | | | [place] [address] | + + + | Home Phone | | + + + | Preferred Language | Unknown | + + + | Marital Status | Unknown | + + + | Yarsanism Affiliation | Unknown | + + + | Race | Unknown | + + + | Ethnic Group | Unknown | + + + Author + + + | Author | [facility] | | | and [place] | + + + | Organization | [facility] | | | [...] Team Providers + +------+ + | Care Egg Packer Name | Role | Phone | + +------+ + PCP | Unavailable | + +------+ + Encounter Details +--------+ + + + + | Date | Type | Department | Care Team | Description | +--------+ + + + + | 07/10/ | Hospital | [facility] | Oliver Hernandez, | | | 2014 | Encounter | [facility] | [address] | | | | | [address] | [place] [address] | | | | | [place] | [phone] | | | | | [address] | | | | | | [phone] | | | +--------+ + + + [...] | + +--------+ + + + | XR SHOULDER RIGHT 2 | Routin | 07/10/2015 | | Results for this | | + VW | e | 1:41 PM | | procedure are in the | | | | PDT | | results section. | + +--------+ + + + documented in this encounter Results XR Shoulder Right 2 + Vw (07/10/2015 1:41 PM PDT) + + | Specimen | + + | | + + + + + | Narrative | Performed At | + + + | ORIGINAL FOUR VIEWS OF THE RIGHT SHOULDER: | | | HISTORY: Shoulder pain. FINDINGS: There is mild hypertrophy of | | | the acromioclavicular joint. Glenohumeral articulation is intact. | | | There is normal bone marrow density. No acute fracture or | | | subluxation. IMPRESSION: No evidence of an acute process. Mild | | | degenerative change of the acromioclavicular joint. D: | | | 07/10/2015 JOB #: [id number] Read By: CHERYL NIELSEN MD | | | Released By: CHERYL NIELSEN MD Date: 07/10/2015 20:03 | | + + + + + | Procedure Note | + + | Papa, Rad Results In - 08/31/2017 8:23 PM PST ORIGINAL FOUR VIEWS OF THE | | RIGHT SHOULDER: HISTORY:Shoulder pain. FINDINGS:There is mild hypertrophy of the | | acromioclavicular joint. Glenohumeral articulation is intact. There is normal bone | | marrow density. No acute fracture or subluxation. IMPRESSION:No evidence of an acute | | process. Mild degenerative change of the acromioclavicular joint. JOB #: | | [id number] Read By: CHERYL NIELSEN MD Released By: ROLAND YEPEZate: | | 07/10/2015 20:03 | |HISTORY: | |Shoulder pain. | | | |FINDINGS: | |There is mild hypertrophy of the acromioclavicular joint. Glenohumeral articulation is int act. There is normal bone marrow density. No acute fracture or subluxation. | | | |IMPRESSION: | |No evidence of an acute process. Mild degenerative change of the acromioclavicular joint. | | | | | |JOB #: [id number] | | | |Read By: CHERYL NIELSEN MD | | | |Released By: CHERYL NIELSEN MD | |Date: 07/10/2015 20:03 | | | | | + + documented in this encounter Visit Diagnoses Not on filedocumented in this encounter"
--- OUTSIDE RECORDS SUMMARY | ~2019-10-11 | XMS | Encounter Summary ---
Demographics + + + | Address | [address] | | | [place] [address] | + + + | Home Phone | | + + + | Preferred Language | Unknown | + + + | Marital Status | Unknown | + + + | Zoroastrianism Affiliation | Unknown | + + + | Race | Unknown | + + + | Ethnic Group | Unknown | + + + Author + + + | Author | [facility] | | | and [place] | + + + | Organization | [facility] | | | [...] Team Providers + +------+ + | Care Director Chemistry Name | Role | Phone | + +------+ + PCP | Unavailable | + +------+ + Encounter Details +--------+ + + + + | Date | Type | Department | Care Team | Description | +--------+ + + + + | 01/02/ | Hospital | [facility] | Te Child | | | 2009 | Encounter | HOSPITAL EMER[facility]ENCY | [address] | | | | | C[address] | [place] | | | | | [place] | [place] [address] | | | | | [address] | [phone] | | | | | [phone] | | | +--------+ + + + [...]
--- OUTSIDE RECORDS SUMMARY | ~2019-10-11 | XMS | Encounter Summary ---
Demographics + + + | Address | [address] | | | [place] [address] | + + + | Home Phone [...] + + + | Author | [facility] | | | and [place] | + + + | Organization | [facility] | | [...] Team Providers + +------+ + | Care Palm And Back Forger Name | Role | Phone | + +------+ + PCP | Unavailable | + +------+ + Encounter Details +--------+ + + + + | Date | Type | Department | Care Team | Description | +--------+ + + + + | 11/06/ | Hospital | [facility] | Mehrdad Cohen | | | 2011 | Encounter | HOSPITAL EMERGENCY | [address] | | | | | CENTER [address] | [address] | | | | | [place] | [place] [address] | | | | | [address] | [phone] | | | | | [phone] | | | +--------+ + + + [...]
--- OUTSIDE RECORDS SUMMARY | ~2019-10-11 | XMS | Encounter Summary ---
Demographics + + + | Address | [address] | | | [place] [address] | + + + | Home Phone [...] Team Providers + +------+ + | Care Roving Hand Name | Role | Phone | + +------+ + PCP | Unavailable | + +------+ + Encounter Details +--------+ + + + + | Date | Type | Department | Care Team | Description | +--------+ + + + + | 08/22/ | [facility] | [facility] | Tony Dewitt MD | | | 2015 | Encounter | [facility] | [address] | | | | | MEDICAL CLIN[address] | [facility] [place], [place] | | | | | [address] [place], | [address] | | | | | [place] [address] | | | | | | [phone] | | | +--------+ + + + [...]
--- OUTSIDE RECORDS SUMMARY | ~2019-10-11 | XMS | Encounter Summary ---
Demographics + + + | Address | [address] | | | [place] [address] | + + + | Home Phone | | + + + | Preferred Language | Unknown | + + + | Marital Status | Unknown | + + + | Jewish Affiliation | Unknown | + + + | Race | Unknown | + + + | Ethnic Group | Unknown | + + + Author + + + | Author | [facility] | | | and [place] | + + + | Organization | [facility] | | | [...] Team Providers + +------+ + | Care Portable Grinding Machine Operator Name | Role | Phone [...] | | | [place] | [address] | | | | | [address] | [phone] | | | | | [phone] | | | +--------+ + + + [...]
--- OUTSIDE RECORDS SUMMARY | ~2019-10-11 | XMS | Encounter Summary ---
Demographics + + + | Address | [address] | | | [place] [address] | + + + | Home Phone | | + + + | Preferred Language | Unknown | + + + | Marital Status | Unknown | + + + | Anabaptism Affiliation | Unknown | + + + | Race | Unknown | + + + | Ethnic Group | Unknown | + + + Author + + + | Author | [facility] | | | and [place] | + + + | Organization | [facility] | | | and [...] Team Providers + +------+ + | Care Asphalt Tamping Machine Operator Name | Role | Phone [...] | | | | [place], [place] | [address] | | | | | [address] | | | | | | [phone] | | | +--------+ + + + [...]
--- OUTSIDE RECORDS SUMMARY | ~2019-10-11 | XMS | Encounter Summary ---
Demographics + + + | Address | [address] | | | [place] [address] | + + + | Home Phone | | + + + | Preferred Language | Unknown | + + + | Marital Status | Unknown | + + + | Methodist Affiliation | Unknown | + + + | Race | Unknown | + + + | Ethnic Group | Unknown | + + + Author + + + | Author | [facility] | | | and [place] | + + + | Organization | [facility] | | | and [...] Team Providers + +------+ + | Care Zoology Professor Name | Role | Phone | + +------+ + PCP | Unavailable | + +------+ + Encounter Details +--------+ + + + + | Date | Type | Department | Care Team | Description | +--------+ + + + + | 02/11/ | Hospital | [facility] | [place], | | | 2009 | Encounter | HOSPITAL LAB[facility]ORY | Simon Goldstein MD | | | | | [address] | [address] [facility] | | | | | [place] | [place], | | | | | [address] | [place] [address] | | | | | [phone] | [phone] | | | | | | | [...]
--- OUTSIDE RECORDS SUMMARY | ~2019-10-11 | XMS | Encounter Summary ---
Demographics + + + | Address | [address] | | | [place] [address] | + + + | Home Phone [...] Phone | + + +---------+ + | aZkia Song | ECON | Unknown | | + + +---------+ + Care Team Providers + +------+ + | Care Training And Development Project Leader Name | Role | Phone | + +------+ + PCP | Unavailable | + +------+ + Encounter Details +--------+ + + + + | Date | Type | Department | Care Team | Description | +--------+ + + + + | 07/24/ | Hospital | [facility] | Altagracia Morrison | | | 2014 | Encounter | HOSPITAL LAB[facility]ORY | G, BRASS RECLAIMER [address] | | | | | [address] | [place] | | | | | [place] | [address] | | | | | [address] | [phone] | | | | | [phone] | | | +--------+ + + + [...]
--- OUTSIDE RECORDS SUMMARY | ~2019-10-11 | XMS | Encounter Summary ---
Demographics + + + | Address | [address] | | | [place] [address] | + + + | Home Phone | | + + + | Preferred Language | Unknown | + + + | Marital Status | Unknown | + + + | Congregation Affiliation | Unknown | + + + [...] Team Providers + +------+ + | Care Order Booker Name | Role | Phone | + +------+ + PCP | Unavailable | + +------+ + Encounter Details +--------+ + + + + | Date | Type | Department | Care Team | Description | +--------+ + + + + | 09/25/ | [facility] | [facility] | Mod[place] Truong | | | 2015 | Encounter | [facility] | [address] | | | | | MEDICAL CLIN[address] | [address] [place], [place] | | | | | [address] [facility], | [address] | | | | | [place] [address] | | | | | | [phone] | | | +--------+ + + + [...]
--- OUTSIDE RECORDS SUMMARY | ~2019-10-11 | XMS | Encounter Summary ---
Demographics + + + | Address | [address] | | | [place] [address] | + + + | Home Phone [...] Team Providers + +------+ + | Care Adjunct Political Science Instructor Name | Role | Phone | + +------+ + PCP | Unavailable | + +------+ + Encounter Details +--------+ + + + + | Date | Type | Department | Care Team | Description | +--------+ + + + + | 10/29/ | Hospital | [facility] | Te Child | | | 2008 | Encounter | HOSPITAL EMERGENCY | [address] | | | | | CENTER [address] | [address] | | | | | [place] | [place] [address] | | | | | [address] | [phone] | | | | | [phone] | | | +--------+ + + + [...]
--- OUTSIDE RECORDS SUMMARY | ~2019-10-11 | XMS | Encounter Summary ---
Demographics + + + | Address | [address] | | | [place] [address] | + + + | Home Phone | | + + + | Preferred Language | Unknown | + + + | Marital Status | Unknown | + + + | Pentecostal Affiliation | Unknown | + + + [...] Team Providers + +------+ + | Care Office Secretary Name | Role | Phone | + +------+ + PCP | Unavailable | + +------+ + Encounter Details +--------+ + + + + | Date | Type | Department | Care Team | Description | +--------+ + + + + | 08/10/ | [facility] | [facility] | [place], | | | 2012 | Encounter | [facility] | Simon Goldstein MD | | | | | MEDICAL CLINIC [address] | [address] [facility] | | | | | [address]TH [facility], | [facility], | | | | | [place] [address] | [place] [address] | | | | | [phone] | [phone] | | | | | | | [...]
--- OUTSIDE RECORDS SUMMARY | ~2019-10-11 | XMS | Encounter Summary ---
Demographics + + + | Address | [address] | | | [place] [address] | + + + | Home Phone | | + + + | Preferred Language | Unknown | + + + | Marital Status | Unknown | + + + | Holiness Affiliation | Unknown | + + + | Race | Unknown | + + + | Ethnic Group | Unknown | + + + Author + + + | Author | [facility] | | | and [place] | + + + | Organization | [facility] | | [...] Team Providers + +------+ + | Care Sales Service Promoter Name | Role | Phone | + +------+ + PCP | Unavailable | + +------+ + Encounter Details +--------+ + + + + | Date | Type | Department | Care Team | Description | +--------+ + + + + | 09/25/ | [facility] | [facility] | Ren, Content | | | 2015 | Encounter | [facility] | [address] | | | | | MEDICAL CLINIC [address] | [address] [facility], | | | | | [address]TH [facility], | [place] [address] | | | | | [place] [address] | [phone] | | | | | [phone] | | | +--------+ + + + [...]
--- OUTSIDE RECORDS SUMMARY | ~2019-10-11 | XMS | Encounter Summary ---
Demographics + + + | Address | [address] | | | [place] [address] | + + + | Home Phone [...] Team Providers + +------+ + | Care Machine Heddle Cleaner Name | Role | Phone | + [...] | | [place] | [place] [address] | | | | | [address] | [phone] | | | | | [phone] | | | +--------+ + + + [...]
--- OUTSIDE RECORDS SUMMARY | ~2019-10-11 | XMS | Encounter Summary ---
Demographics + + + | Address | [address] | | | [place] [address] | + + + | Home Phone | | + + + | Preferred Language | Unknown | + + + | Marital Status | Unknown | + + + | Presybeterian Affiliation | Unknown | + + + | Race | Unknown | + + + | Ethnic Group | Unknown | + + + Author + + + | Author | [facility] | | | and [place] | + + + | Organization | [facility] | | [...] Providers + +------+ + | Care Medical Record Retrieval Specialist Name | Role | Phone | + +------+ + | No, Physician | PCP | Unavailable | + +------+ + Encounter Details +--------+ + + + + | Date | Type | Department | Care Team | Description | +--------+ + + + + | 05/28/ | Orders Only | [facility] | Provider, | | | 2018 | | SYSTEM GENERIC OP | [address] | | | | | CON[address] | [address] | | | | | [address] [place], [place] | [place] [address] | | | | | [address] | | | | | | [phone] | | | +--------+ + + + [...]
--- OUTSIDE RECORDS SUMMARY | ~2019-10-11 | XMS | Encounter Summary ---
Demographics + + + | Address | [address] | | | [place] [address] | + + + | Home Phone | | + + + | Preferred Language | Unknown | + + + | Marital Status | Unknown | + + + | Restorationist Affiliation | Unknown | + + + | Race | Unknown | + + + | Ethnic Group | Unknown | + + + Author + + + | Author | [facility] | | | and [place] | + + + | Organization | [facility] | | [...] Team Providers + +------+ + | Care Global Analytics Head Name | Role | Phone | + [...] | [address] | [place] [address] | | | | | [place] | [phone] | | | | | [address] | | | | | | [phone] | | | +--------+ + + + [...] D: | | | 07/10/2015 JOB #: [id number] Read By: CHERYL NIELSEN MD | | [...] the acromioclavicular joint. JOB #: | | [id number] Read By: CHERYL NIELSEN MD Released By: [...] | | | | | |JOB #: [id number] | | | |Read By: CHERYL NIELSEN MD | | | |Released By: CHERYL NIELSEN MD | |Date: 07/10/2015 20:03 | | | | | + + documented in this encounter Visit Diagnoses Not on filedocumented in this encounter"
--- OUTSIDE RECORDS SUMMARY | ~2019-10-11 | XMS | Encounter Summary ---
Demographics + + + | Address | [address] | | | [place] [address] | + + + | Home Phone | | + + + | Preferred Language | Unknown | + + + | Marital Status | Unknown | + + + | Muslim Affiliation | Unknown | + + + | Race | Unknown | + + + | Ethnic Group | Unknown | + + + Author + + + | Author | [facility] | | | and [place] | + + + | Organization | [facility] | | [...] Team Providers + +------+ + | Care Sheet Metal Pattern Cutter Name | Role | Phone | + [...] | SR | | | | | [phone] | | | +--------+ + + + [...]
--- OUTSIDE RECORDS SUMMARY | ~2019-10-11 | XMS | Encounter Summary ---
Demographics + + + | Address | [address] | | | [place] [address] | + + + | Home Phone | | + + + | Preferred Language | Unknown | + + + | Marital Status | Unknown | + + + | Alevism Affiliation | Unknown | + + + | Race | Unknown | + + + | Ethnic Group | Unknown | + + + Author + + + | Author | [facility] | | | and [place] | + + + | Organization | [facility] | | [...] Team Providers + +------+ + | Care Networking Specialist Name | Role | Phone | + +------+ + | No, Physician | PCP | Unavailable | + +------+ + Encounter Details +--------+ + + + + | Date | Type | Department | Care Team | Description | +--------+ + + + + | 05/28/ | Orders Only | [facility] | Provider, | | | 2018 | | SYSTEM GENERIC OP | [address] | | | | | [address] | [address] | | | | | [address] [place], [place] | [place] [address] | | | | | [address] | | | | | | [phone] | | | +--------+ + + + [...]
--- OUTSIDE RECORDS SUMMARY | ~2019-10-11 | XMS | Encounter Summary ---
Demographics + + + | Address | [address] | | | [place] [address] | + + + | Home Phone | | + + + | Preferred Language | Unknown | + + + | Marital Status | Unknown | + + + | Protestant Affiliation | Unknown | + + + | Race | Unknown | + + + | Ethnic Group | Unknown | + + + Author + + + | Author | [facility] | | | and [place] | + + + | Organization | [facility] | | | [...] Team Providers + +------+ + | Care Wheel Inspector Name | Role | Phone | + +------+ + PCP | Unavailable | + +------+ + Encounter Details +--------+ + + + + | Date | Type | Department | Care Team | Description | +--------+ + + + + | 09/05/ | [facility] | [facility] | Tony Dewitt MD | | | 2012 | Encounter | [facility] | [address] | | | | | MED[facility] | [place], [place] | | | | | [address] [place], | [address] | | | | | [place] [address] | | | | | | [phone] | | | +--------+ + + + [...]
--- OUTSIDE RECORDS SUMMARY | ~2019-10-11 | XMS | Encounter Summary ---
Demographics + + + | Address | [address] | | | [place] [address] | + + + | Home Phone [...] Team Providers + +------+ + | Care Cotton Classer Name | Role | Phone | + [...] | [address] [place] | [place] [address] | | | | | [address] | [phone] | | | | | [phone] | | | +--------+ + + + [...]
--- OUTSIDE RECORDS SUMMARY | ~2019-10-11 | XMS | Encounter Summary ---
Demographics + + + | Address | [address] | | | [place] [address] | + + + | Home Phone [...] + | Author | [facility] | | | and [place] | + + + | Organization | [facility] | | | and [...] Team Providers + +------+ + | Care Detonator Maker Name | Role | Phone | [...] [place] | | | | | [phone] | [place] [address] | | +--------+ + + + + [...] + +--------+ + + + | MRI CERVICAL SPINE | Routin | 09/28/2012 | | Results for this | | WO CONTRAST | e | 1:45 PM | | procedure are in the | | | | PST | | results section. | + +--------+ + + + documented in this encounter Results MRI Cervical Spine wo Contrast (09/28/2012 1:45 PM PST) + + | Specimen | [...]
--- OUTSIDE RECORDS SUMMARY | ~2019-10-11 | XMS | Encounter Summary ---
Demographics + + + | Address | [address] | | | [place] [address] | + + + | Home Phone | | + + + | Preferred Language | Unknown | + + + | Marital Status | Unknown | + + + | Orthodoxy Affiliation | Unknown | + + + | Race | Unknown | + + + | Ethnic Group | Unknown | + + + Author + + + | Author | [facility] | | | and [place] | + + + | Organization | [facility] | | | [...] Team Providers + +------+ + | Care Warehouse Shipping Associate Name | Role | Phone | + +------+ + PCP | Unavailable | + +------+ + Encounter Details +--------+ + + + + | Date | Type | Department | Care Team | Description | +--------+ + + + + | 12/03/ | [facility] | [facility] [facility] | Te Child | | | 2009 | Encounter | H[facility]PITAL EM[facility]Y | [address] | | | | | [address] | [place] | | | | | [place] | [place] [address] | | | | | [address] | [phone] | | | | | [phone] | | | +--------+ + + + [...]
--- OUTSIDE RECORDS SUMMARY | ~2019-10-11 | XMS | Encounter Summary ---
Demographics + + + | Address | [address] | | | [place] [address] | + + + | Home Phone | | + + + | Preferred Language | Unknown | + + + | Marital Status | Unknown | + + + | Congregation Affiliation | Unknown | + + + | Race | Unknown | + + + | Ethnic Group | Unknown | + + + Author + + + | Author | [facility] | | | and [place] | + + + | Organization | [facility] | | | [...] Team Providers + +------+ + | Care Mechanical Engineering Director Name | Role | Phone | + +------+ + | Brigitte Law MD | PCP | | + +------+ + Reason for Visit + + + | Reason | Comments | + + + | Follow-up | | + + + Encounter Details +--------+ + + + + | Date | Type | Department | Care Team | Description | +--------+ + + + + | 10/30/ | Telephone | [facility] | No, Physician | Follow-up | | 2018 | | HOSPITAL EMERGENCY | | | | | | CENTER [address] | | | | | | [place] | | | | | | [address] | | | | | | [phone] | | | +--------+ + + + [...]
--- OUTSIDE RECORDS SUMMARY | ~2019-10-11 | XMS | Encounter Summary ---
Demographics + + + | Address | [address] | | | [place] [address] | + + + | Home Phone | | + + + | Preferred Language | Unknown | + + + | Marital Status | Unknown | + + + | Islam Affiliation | Unknown | + + + [...] Team Providers + +------+ + | Care Hedis Manager Name | Role | Phone | + +------+ + PCP | Unavailable | + +------+ + Encounter Details +--------+ + + + + | Date | Type | Department | Care Team | Description | +--------+ + + + + | 02/07/ | [facility] | [facility] [facility] | Te Child | | | 2009 | Encounter | HOSPITAL EMERGENCY | [address] | | | | | C[address] | [place] | | | | | [place] | [place] [address] | | | | | [address] | [phone] | | | | | [phone] | | | +--------+ + + + [...]
--- OUTSIDE RECORDS SUMMARY | ~2019-10-11 | XMS | Encounter Summary ---
Demographics + + + | Address | [address] | | | [place] [address] | + + + | Home Phone | | + + + | Preferred Language | Unknown | + + + | Marital Status | Unknown | + + + | Rastafari Affiliation | Unknown | + + + | Race | Unknown | + + + | Ethnic Group | Unknown | + + + Author + + + | Author | [facility] | | | and [place] | + + + | Organization | [facility] | | | [...] Team Providers + +------+ + | Care Phonograph Cartridge Assembler Name | Role | Phone | + [...] | | | | [place], [place] | [id number] | | | | | [address] | | | | | | [phone] | | | +--------+ + + + [...]
--- OUTSIDE RECORDS SUMMARY | ~2019-10-11 | XMS | Encounter Summary ---
Demographics + + + | Address | [address] | | | [place] [address] | + + + | Home Phone | | + + + | Preferred Language | Unknown | + + + | Marital Status | Unknown | + + + | Roman Catholic Affiliation | Unknown | + + + | Race | Unknown | + + + | Ethnic Group | Unknown | + + + Author + + + | Author | [facility] | | | and [place] | + + + | Organization | [facility] | | [...] + +------+ + | Care Retail Sales Specialist Name | Role | Phone | + +------+ + PCP | Unavailable | + +------+ + Encounter Details +--------+ + + + + | Date | Type | Department | Care Team | Description | +--------+ + + + + | 11/17/ | [facility] | [facility] | Te Child | | | 2009 | Encounter | HOSPITAL EMERGENCY | [address] | | | | | [address] | [place] | | | | | [place] | [place] [address] | | | | | [address] | [phone] | | | | | [phone] | | | +--------+ + + + [...]
--- OUTSIDE RECORDS SUMMARY | ~2019-10-11 | XMS | Encounter Summary ---
Demographics + + + | Address | [address] | | | [place] [address] | + + + | Home Phone | | + + + | Preferred Language | Unknown | + + + | Marital Status | Unknown | + + + | Anglican Affiliation | Unknown | + + + [...] Team Providers + +------+ + | Care Autopsy Pathologist Name | Role | Phone | + [...] | | [address] [place] | [address] [facility] | | | | | [place] | [place], | | | | | [address] | [place] [address] | | | | | [phone] | [phone] | | | | | | | [...]
--- OUTSIDE RECORDS SUMMARY | ~2019-10-11 | XMS | Encounter Summary ---
Demographics + + + | Address | [address] | | | [place] [address] | + + + | Home Phone | | + + + | Preferred Language | Unknown | + + + | Marital Status | Unknown | + + + | Latter-Day Affiliation | Unknown | + + + [...] Team Providers + +------+ + | Care Raw Scales Operator Name | Role | Phone | + +------+ + PCP | Unavailable | + +------+ + Encounter Details +--------+ + + + + | Date | Type | Department | Care Team | Description | +--------+ + + + + | 08/08/ | Hospital | [facility] | Ketty Ordonez, | | | 2012 | Encounter | HOSPITAL EMERGENCY | TELEGRAPH MESSENGER [address] | | | | | C[address] | [place] | | | | | [address] [place] | [id number] | | | | | [address] | | | | | | [phone] | | | +--------+ + + + [...]
--- OUTSIDE RECORDS SUMMARY | ~2019-10-11 | XMS | Encounter Summary ---
Demographics + + + | Address | [address] | | | [place] [address] | + + + | Home Phone | | + + + | Preferred Language | Unknown | + + + | Marital Status | Unknown | + + + | Judaism Affiliation | Unknown | + + + | Race | Unknown | + + + | Ethnic Group | Unknown | + + + Author + + + | Author | [facility] | | | and [place] | + + + | Organization | [facility] | | | [...] Team Providers + +------+ + | Care Corporate Director Of Pharmacy Name | Role | Phone | + +------+ + PCP | Unavailable | + +------+ + Encounter Details +--------+ + + + + | Date | Type | Department | Care Team | Description | +--------+ + + + + | 09/18/ | [facility] | [facility] | Tony Dewitt MD | | | 2011 | Encounter | [facility] | [address] | | | | | MEDICAL CLIN[address] | [place], [place] | | | | | [address] [place], | [address] | | | | | [place] [address] | | | | | | [phone] | | | +--------+ + + + [...]
--- OUTSIDE RECORDS SUMMARY | ~2019-10-11 | XMS | Encounter Summary ---
Demographics + + + | Address | [address] | | | [place] [address] | + + + | Home Phone [...] Team Providers + +------+ + | Care Tenant Relations Coordinator Name | Role | Phone | + +------+ + PCP | Unavailable | + +------+ + Encounter Details +--------+ + + + + | Date | Type | Department | Care Team | Description | +--------+ + + + + | 06/29/ | [facility] | [facility] | [place], | | | 2011 | Encounter | [facility] | Simon Goldstein MD | | | | | MEDICAL CLIN[address] | [address] [facility] | | | | | [address] [facility], | [facility], | | | | | [place] [address] | [place] [address] | | | | | [phone] | [phone] | | | | | | | [...]
--- OUTSIDE RECORDS SUMMARY | ~2019-10-11 | XMS | Encounter Summary ---
Demographics + + + | Address | [address] | | | [place] [address] | + + + | Home Phone [...] + + + | Author | [facility] | | | and [place] | + + + | Organization | [facility] | | [...] Team Providers + +------+ + | Care Baster Hand Name | Role | Phone | [...] | | | | [place], [place] | [address] | | | | | [address] | | | | | | [phone] | | | +--------+ + + + [...]
--- OUTSIDE RECORDS SUMMARY | ~2019-10-11 | XMS | Encounter Summary ---
Demographics + + + | Address | [address] | | | [place] [address] | + + + | Home Phone [...] Team Providers + +------+ + | Care Medicare Nurse Name | Role | Phone | + [...] | [address] [place] | [place] [address] | | | | | [address] | [phone] | | | | | [phone] | | | +--------+ + + + [...]
--- OUTSIDE RECORDS SUMMARY | ~2019-10-11 | XMS | Encounter Summary ---
Demographics + + + | Address | [address] | | | [place] [address] | + + + | Home Phone | | + + + | Preferred Language | Unknown | + + + | Marital Status | Unknown | + + + | Worship Affiliation | Unknown | + + + | Race | Unknown | + + + | Ethnic Group | Unknown | + + + Author + + + | Author | [facility] | | | and [place] | + + + | Organization | [facility] | | [...] Team Providers + +------+ + | Care Mud Plant Operator Name | Role | Phone | [...] | | [address] [place] | [address] [facility] | | | | | [place] | [place], | | | | | [address] | [place] [address] | | | | | [phone] | [phone] | | | | | | | [...]
--- OUTSIDE RECORDS SUMMARY | ~2019-10-11 | XMS | Encounter Summary ---
Demographics + + + | Address | [address] | | | [place] [address] | + + + | Home Phone | | + + + | Preferred Language | Unknown | + + + | Marital Status | Unknown | + + + | Episcopal Affiliation | Unknown | + + + | Race | Unknown | + + + | Ethnic Group | Unknown | + + + Author + + + | Author | [facility] | | | and [place] | + + + | Organization | [facility] | | | and [...] Team Providers + +------+ + | Care Senior Datastage Developer Name | Role | Phone | + +------+ + | Rubi Mcclure | PCP | | | MD | | | + +------+ + Encounter Details +--------+ + + + + | Date | Type | Department | Care Team | Description | +--------+ + + + + | 05/16/ | Hospital | [facility] | Conversion | Diagnosis unknown | | 2018 | Encounter | CONVERSION DEP 888 | Transaction, | | | | | [place] | Provider Unknown | | | | | [place] | [phone] | | | | | [address] | | | | | | [phone] | | | +--------+ + + + [...]
--- OUTSIDE RECORDS SUMMARY | ~2019-10-11 | XMS | Encounter Summary ---
Demographics + + + | Address | [address] | | | [place] [address] | + + + | Home Phone | | + + + | Preferred Language | Unknown | + + + | Marital Status | Unknown | + + + | Advent Affiliation | Unknown | + + + | Race | Unknown | + + + | Ethnic Group | Unknown | + + + Author + + + | Author | [facility] | | | and [place] | + + + | Organization | [facility] | | | and [...] Team Providers + +------+ + | Care Welding Supervisor Name | Role | Phone | + +------+ + PCP | Unavailable | + +------+ + Encounter Details +--------+ + + + + | Date | Type | Department | Care Team | Description | +--------+ + + + + | 08/08/ | Hospital | [facility] | Ketty Ordonez, | | | 2012 | Encounter | HOSPITAL EMERGENCY | EMERGENCY MANAGEMENT SYSTEM DIRECTOR [address] | | | | | C[address] | [place] | | | | | [address] [place] | [id number] | | | | | [address] | | | | | | [phone] | | | +--------+ + + + [...]
--- OUTSIDE RECORDS SUMMARY | ~2019-10-11 | XMS | Encounter Summary ---
Demographics + + + | Address | [address] | | | [place] [address] | + + + | Home Phone [...] Team Providers + +------+ + | Care Financial Cost Analyst Name | Role | Phone | + +------+ + PCP | Unavailable | + +------+ + Encounter Details +--------+ + + + + | Date | Type | Department | Care Team | Description | +--------+ + + + + | 02/02/ | [facility] | [facility] | Raji José | | | 2009 | Encounter | HOSPITAL EMERGENCY | MD [address] | | | | | [place] [address] | [facility] | | | | | [address] [place] | [place] [address] | | | | | [address] | [phone] | | | | | [phone] | | | +--------+ + + + [...]
--- OUTSIDE RECORDS SUMMARY | ~2019-10-11 | XMS | Encounter Summary ---
Demographics + + + | Address | [address] | | | [place] [address] | + + + | Home Phone [...] Team Providers + +------+ + | Care Chief Controller Station Name | Role | Phone | + +------+ + PCP | Unavailable | + +------+ + Encounter Details +--------+ + + + + | Date | Type | Department | Care Team | Description | +--------+ + + + + | 05/19/ | Hospital | [facility] | Mehrdad Cohen | | | 2009 | Encounter | HOSPITAL EMERGENCY | MD [address] | | | | | C[address] | [address] | | | | | [place] | [place] [address] | | | | | [address] | [phone] | | | | | [phone] | | | +--------+ + + + [...]
--- OUTSIDE RECORDS SUMMARY | ~2019-10-11 | XMS | Encounter Summary ---
Demographics + + + | Address | [address] | | | [place] [address] | + + + | Home Phone | | + + + | Preferred Language | Unknown | + + + | Marital Status | Unknown | + + + | Anabaptist Affiliation | Unknown | + + + | Race | Unknown | + + + | Ethnic Group | Unknown | + + + Author + + + | Author | [facility] | | | and [place] | + + + | Organization | [facility] | | | [...] Team Providers + +------+ + | Care Utility Worker Film Processing Name | Role | Phone | + +------+ + PCP | Unavailable | + +------+ + Encounter Details +--------+ + + + + | Date | Type | Department | Care Team | Description | +--------+ + + + + | 09/08/ | [facility] | [facility] [facility] | Raji José | | | 2008 | Encounter | HOSPITAL EMERGENCY | MD [address] | | | | | [place] [address] | [facility] | | | | | [address] [place] | [place] [address] | | | | | [address] | [phone] | | | | | [phone] | | | +--------+ + + + [...]
--- OUTSIDE RECORDS SUMMARY | ~2019-10-11 | XMS | Clinical Summary ---
Demographics + + + | Address | [address] | | | [place] [address] | + + + | Home Phone | | + + + | Preferred Language | Unknown | + + + | Marital Status | Single | + + + | Taoism Affiliation | Unknown | + + + | Race | Unknown | + + + | Ethnic Group | Unknown | + + + Author + + + | Author | [facility] (Historical as of | | | 06-09-19) | + + + | Organization | [facility] Email Data Source (Historical as of | | | 06-09-19) [...] Providers + +------+ + | Care Financial Systems Analyst Name | Role | Phone | [...] +------+-------+ + | MEDICARE | MEDICA | [id number] | | | [address] | | | [place] | | | | [place] [address] | | | IP-OP | | | | | + +--------+ +------+-------+ + | MEDICAID | MEDICA | [id number] | | | [address] | | | [place] | | | | [place] | | | [place] | | | | [address] | + +--------+ +------+-------+ + + +--------+ [...] | 1970 | [phone] | [place] [address] | | | marj | | | [address] | | + +--------+ +--------+ + +
--- OUTSIDE RECORDS SUMMARY | ~2019-10-11 | XMS | Encounter Summary ---
Demographics + + + | Address | [address] | | | [place] [address] | + + + | Home Phone | | + + + | Preferred Language | Unknown | + + + | Marital Status | Unknown | + + + | Buddhist Affiliation | Unknown | + + + | Race | Unknown | + + + | Ethnic Group | Unknown | + + + Author + + + | Author | [facility] | | | and [place] | + + + | Organization | [facility] | | [...] Team Providers + +------+ + | Care Pilot Highway Patrol Name | Role | Phone | + +------+ + PCP | Unavailable | + +------+ + Encounter Details +--------+ + + + + | Date | Type | Department | Care Team | Description | +--------+ + + + + | 11/20/ | [facility] | [place] [facility] | Te Child | | | 2008 | Encounter | HOSPITAL EMERGENCY | MD [address] | | | | | C[address] | [place] | | | | | [place] | [place] [address] | | | | | [address] | [phone] | | | | | [phone] | | | +--------+ + + + [...]
--- OUTSIDE RECORDS SUMMARY | ~2019-10-11 | XMS | Encounter Summary ---
Demographics + + + | Address | [address] | | | [place] [address] | + + + | Home Phone | | + + + | Preferred Language | Unknown | + + + | Marital Status | Unknown | + + + | Confucianism Affiliation | Unknown | + + + | Race | Unknown | + + + | Ethnic Group | Unknown | + + + Author + + + | Author | [facility] | | | and [place] | + + + | Organization | [facility] | | | [...] Team Providers + +------+ + | Care Canvas Cutter Name | Role | Phone | [...] [place] | | | | | [phone] | [place] [address] | | +--------+ + + + + [...]
--- OUTSIDE RECORDS SUMMARY | ~2019-10-11 | XMS | Encounter Summary ---
Demographics + + + | Address | [address] | | | [place] [address] | + + + | Home Phone [...] Team Providers + +------+ + | Care Physical Chemistry Teacher Name | Role | Phone | + +------+ + PCP | Unavailable | + +------+ + Encounter Details +--------+ + + + + | Date | Type | Department | Care Team | Description | +--------+ + + + + | 06/20/ | Hospital | [facility] | Altagracia Morrison | | | 2014 | Encounter | HOSPITAL LABORATORY | G, RECYCLING ATTENDANT [address] | | | | | [address] [place] | [place] | | | | | [place] | [address] | | | | | [address] | [phone] | | | | | [phone] | | | +--------+ + + + [...]
--- OUTSIDE RECORDS SUMMARY | ~2019-10-11 | XMS | Encounter Summary ---
Demographics + + + | Address | [address] | | | [place] [address] | + + + | Home Phone [...] Team Providers + +------+ + | Care Admission Discharge Rn Name | Role | Phone | + +------+ + PCP | Unavailable | + +------+ + Encounter Details +--------+ + + + + | Date | Type | Department | Care Team | Description | +--------+ + + + + | 12/07/ | [facility] | [facility] | [place], | | | 2012 | Encounter | [facility] | Simon Goldstein MD | | | | | MEDICAL CL[address] | [address] [facility] | | | | | [address] [facility], | [facility], | | | | | [place] [address] | [place] [address] | | | | | [phone] | [phone] | | | | | | | [...]
--- OUTSIDE RECORDS SUMMARY | ~2019-10-11 | XMS | Encounter Summary ---
Demographics + + + | Address | [address] | | | [place] [address] | + + + | Home Phone | | + + + | Preferred Language | Unknown | + + + | Marital Status | Unknown | + + + | Scientologist Affiliation | Unknown | + + + [...] Team Providers + +------+ + | Care Grinder Operator Surface Tool Name | Role | Phone | + +------+ + PCP | Unavailable | + +------+ + Encounter Details +--------+ + + + + | Date | Type | Department | Care Team | Description | +--------+ + + + + | 06/23/ | [facility] | [facility] | [place] | | | 2015 | Encounter | [facility] | [address] | | | | | MEDICAL CLIN[address] | [address] [place], [place] | | | | | [address] [facility], | [address] | | | | | [place] [address] | | | | | | [phone] | | | +--------+ + + + [...]
--- OUTSIDE RECORDS SUMMARY | ~2019-10-11 | XMS | Encounter Summary ---
Demographics + + + | Address | [address] | | | [place] [address] | + + + | Home Phone | | + + + | Preferred Language | Unknown | + + + | Marital Status | Unknown | + + + | Quaker Affiliation [...] Team Providers + +------+ + | Care Data Management Analyst Name | Role | Phone | [...] | | [place] | [place] [address] | | | | | [address] | [phone] | | | | | [phone] | | | +--------+ + + + [...]
--- OUTSIDE RECORDS SUMMARY | ~2019-10-11 | XMS | Encounter Summary ---
Demographics + + + | Address | [address] | | | [place] [address] | + + + | Home Phone | | + + + | Preferred Language | Unknown | + + + | Marital Status | Unknown | + + + | Gnosticism Affiliation | Unknown | + + + | Race | Unknown | + + + | Ethnic Group | Unknown | + + + Author + + + | Author | [facility] | | | and [place] | + + + | Organization | [facility] | | [...] Team Providers + +------+ + | Care Wic Site Coordinator Name | Role | Phone | + +------+ + PCP | Unavailable | + +------+ + Encounter Details +--------+ + + + + | Date | Type | Department | Care Team | Description | +--------+ + + + + | 10/05/ | [facility] | [facility] [facility] | Te Child | | | 2010 | Encounter | HOSPITAL EMERGENCY | [address] | | | | | C[address] | [place] | | | | | [place] | [place] [address] | | | | | [address] | [phone] | | | | | [phone] | | | +--------+ + + + [...]
--- OUTSIDE RECORDS SUMMARY | ~2019-10-11 | XMS | Encounter Summary ---
Demographics + + + | Address | [address] | | | [place] [address] | + + + | Home Phone [...] + + + | Author | [facility] | | | and [place] | + + + | Organization | [facility] | | [...] Team Providers + +------+ + | Care Filler Shredder Helper Name | Role | Phone | [...] [place] | | | | | | [address] | | | | | | [phone] | | | +--------+ + + + [...]
--- OUTSIDE RECORDS SUMMARY | ~2019-10-11 | XMS | Encounter Summary ---
Demographics + + + | Address | [address] | | | [place] [address] | + + + | Home Phone | | + + + | Preferred Language | Unknown | + + + | Marital Status | Unknown | + + + | Yazdanism Affiliation | Unknown | + + + | Race | Unknown | + + + | Ethnic Group | Unknown | + + + Author + + + | Author | [facility] | | | and [place] | + + + | Organization | [facility] | | | [...] Team Providers + +------+ + | Care Post Splitter Name | Role | Phone | + [...] Nya PRASAD | | | | | [phone] | [place] [address] | | +--------+ + + + + [...]
--- OUTSIDE RECORDS SUMMARY | ~2019-10-11 | XMS | Encounter Summary ---
Demographics + + + | Address | [address] | | | [place] [address] | + + + | Home Phone [...] Providers + +------+ + | Care Manager Aerospace Name | Role | Phone | + [...] | [address] [place] | [place] [address] | | | | | [address] | [phone] | | | | | [phone] | | | +--------+ + + + [...]
--- OUTSIDE RECORDS SUMMARY | ~2019-10-11 | XMS | Encounter Summary ---
Demographics + + + | Address | [address] | | | [place] [address] | + + + | Home Phone [...] Team Providers + +------+ + | Care Company Laborer Name | Role | Phone | + +------+ + PCP | Unavailable | + +------+ + Encounter Details +--------+ + + + + | Date | Type | Department | Care Team | Description | +--------+ + + + + | 12/03/ | [facility] | GEORGE CHARLES | Te Child | | | 2009 | Encounter | HOSPITAL EMERGENCY | [address] | | | | | CENTER [address] | [place] [address] | | | | | [address] | [place] [address] | | | | | [address] | [phone] | | | | | [phone] | | | +--------+ + + + [...]
--- OUTSIDE RECORDS SUMMARY | ~2019-10-11 | XMS | Encounter Summary ---
Demographics + + + | Address | [address] | | | [place] [address] | + + + | Home Phone [...] Team Providers + +------+ + | Care Road Supervisor Of Engines Name | Role | Phone | + [...] | 2017 | | HOSPITAL EMERGENCY | [address] | eyes (Primary Dx) | | | | CENTER [address] | [address] [place] | | | | | [place] | [address] | | | | | [address] | | | | | | [phone] | | | +--------+ + + + [...] sent through Care Everywhere.Headaches, Self -Care for (Amharic)documented in this encounter Medications at Time of [...]
--- OUTSIDE RECORDS SUMMARY | ~2019-10-11 | XMS | Encounter Summary ---
Demographics + + + | Address | [address] | | | [place] [address] | + + + | Home Phone [...] Author + + + | Author | [facility] | | | and [place] | + + + | Organization | [facility] | | [...] Team Providers + +------+ + | Care Sheepskin Pickler Name | Role | Phone | + [...] | | | | [place] | [address] | | | | | [address] | [phone] | | | | | [phone] | | | +--------+ + + + [...]
--- OUTSIDE RECORDS SUMMARY | ~2019-10-11 | XMS | Encounter Summary ---
Demographics + + + | Address | [address] | | | [place] [address] | + + + | Home Phone [...] Team Providers + +------+ + | Care Drivers' Cash Clerk Name | Role | Phone | + +------+ + PCP | Unavailable | + +------+ + Encounter Details +--------+ + + + + | Date | Type | Department | Care Team | Description | +--------+ + + + + | 07/21/ | [facility] | GEORGE CHARLES | Estevan Flores | | | 2008 | Encounter | HOSPITAL EMERGENCY | [address] | | | | | CENTER [address] | [address] | | | | | [address], [place] | [place] [address] | | | | | [address] | [phone] | | | | | [phone] | | | +--------+ + + + [...]
--- OUTSIDE RECORDS SUMMARY | ~2019-10-11 | XMS | Encounter Summary ---
Demographics + + + | Address | [address] | | | [place] [address] | + + + | Home Phone [...] + + + | Author | [facility] | | | and [place] | + + + | Organization | [facility] | | | [...] Team Providers + +------+ + | Care Ultrasound Supervisor Name | Role | Phone | + +------+ + PCP | Unavailable | + +------+ + Encounter Details +--------+ + + + + | Date | Type | Department | Care Team | Description | +--------+ + + + + | 06/23/ | [facility] | [facility] | [place] | | | 2015 | Encounter | [facility] | [address] | | | | | MEDICAL CL[facility] [address] [place], [place] | | | | | [address] [facility], | [address] | | | | | [place] [address] | | | | | | [phone] | | | +--------+ + + + [...]
--- OUTSIDE RECORDS SUMMARY | ~2019-10-11 | XMS | Encounter Summary ---
Demographics + + + | Address | [address] | | | [place] [address] | + + + | Home Phone [...] + + + | Author | [facility] | | | and [place] | + + + | Organization | [facility] | | | [...] Team Providers + +------+ + | Care Gatehouse Attendant Name | Role | Phone | + [...] | [address] [place] | [place] [address] | | | | | [address] | [phone] | | | | | [phone] | | | +--------+ + + + [...]
[~2019-10-11 07:44] MED LIST changes: +DOXYCYCLINE HYC50 M2 PO; +TAMIFLU75 MG PO
== END 2019-10-11 09:43 | disposition home or self-care (01) ==
LOC: ED 07:44
DX: J02.9 Acute pharyngitis, unspecified (principal); B34.9 Viral infection, unspecified; F17.200 Nicotine dependence, unspecified, uncomplicated; Z79.899 Other long term (current) drug therapy
CPT/HCPCS: 87880; 99283; A9270

== ENCOUNTER 2020-08-11 07:55 | Day surgery (SDC) | payer MEDICARE, OTHER ==
[~2020-08-11] VITALS: Ht 167.6 cm; Wt 81.7 kg
[~2020-08-11 07:55] MED LIST changes: +GABAPENTIN300 MG PO; +IBUPROFEN600 MG PO; -LEVOTHYROXINE150 MCG PO; +LEVOTHYROXINE175 MCG PO; +OXYCODON-ACETA1 EAC2 PO; +TYLENOL EXTRA500 MG PO
[2020-08-11] MEDS ORDERED: FIBER GUMMIES1 EACH PO (08:03)
[2020-08-11] MEDS ORDERED: MULTIVITAMINS1 EAC7 PO (08:03)
[2020-08-11] MEDS ORDERED: HYDROCODON-ACE1 EA10 PO (11:08)
--- NOTE | 2020-08-11 11:41 | NUR ---
08/11/20 1141 Elke Camacho 1108 PT ARRIVED IN PACU NON RESPONSIVE TO NOXIOUS STIMULI WITH OPA IN PLACE. CHIN LIFT HELD BY RN. 1123 PT REACTIVE. OPA REMOVED. ICE PLACED ON L ARM. 1130 SITTING UP IN BED TALKING TO STAFF. NO C/O'S. 1138 TO DS. REPORT GIVEN TO RN. FRIEND AT BEDSIDE.
--- NOTE | 2020-08-12 19:04 | OR ---
[facility] [address], [place] [address] Signed DATE OF OPERATION: 08/11/2020 SURGEON: Evan Hi MD PREOPERATIVE DIAGNOSIS: Chronic left lateral epicondylitis. POSTOPERATIVE DIAGNOSIS: Chronic left lateral epicondylitis. PROCEDURE PERFORMED: Left lateral epicondylar debridement with shingling. ANESTHESIA: General. BOX SORTER: Tita George PA-C. BLOOD LOSS: None. TOURNIQUET TIME: 17 minutes. BRIEF HISTORY: Gisella is a 50-year-old gentleman with chronic lateral elbow pain, nonresponsive to nonoperative treatment. MRI confirmed ECRB tendinosis with a small tear. Risks and benefits of operative treatment were discussed with him and he elected to proceed. DESCRIPTION OF PROCEDURE: Once consent was obtained, he was taken to the operating room after adequate anesthesia. He was placed on operating room table, all downside pressure were points well padded. The left arm was prepped and draped in a standard sterile fashion. Sterile tourniquet was applied. The arm was then exsanguinated with an Esmarch bandage. Tourniquet inflated to 200 mmHg. Standard lateral approach to the epicondyle was taken through a 1.5-inch incision, carried through skin and subcutaneous tissue. The fascia was then divided longitudinally for the extensor mass. This was carried down to the bone, split and elevated off the epicondyle. Underlying tendinosis, which was primarily anterior in his case was then debrided sharply using the rongeur. The broken down tendon pieces Electronically Signed By: EVAN HI MD 08/12/20 1904 PATIENT NAME: GISELLA BERGER ANDREA OPERATIVE REPORT DATE OF : 66 REPORT #: [id number] PHYSICIAN: EVAN HI MD PCP: GENESIS SHULTZ MD REPORT IS CONFIDENTIAL AND NOT TO BE RELEASED WITHOUT AUTHORIZATION [facility] [address], [place] [address] Signed were taken out. The epicondyle was then shingled using a small hook osteotome. The wound was copiously irrigated with antibiotic solution. The tendon was then repaired using 0 Vicryl. The subcutaneous tissue and skin were closed using 3-0 Monocryl and Steri-Strips were applied. Acticoat dressing was placed and the arm was placed in a posterior splint with side pieces. He tolerated the procedure well. All sponge, needle, and instrument counts were correct. Evan Hi MD BA/MODL /[id number] Copies: ~ Electronically Signed By: EVAN HI MD 08/12/20 1904 PATIENT NAME: GISELLA BERGER II OPERATIVE REPORT DATE OF : 66 REPORT #: [id number] PHYSICIAN: EVAN HI MD PCP: GENESIS SHULTZ MD REPORT IS CONFIDENTIAL AND NOT TO BE RELEASED WITHOUT AUTHORIZATION
== END 2020-08-11 12:40 | disposition home or self-care (01) ==
LOC: DS 07:55
PROVIDERS: ATTEND Specialist
PROC: 0LB40ZZ Excision of Left Upper Arm Tendon, Open Approach (ICD-10-PCS; principal; 2020-08-11 10:30)
DX: M77.12 Lateral epicondylitis, left elbow (principal); I10 Essential (primary) hypertension; E03.9 Hypothyroidism, unspecified; F17.210 Nicotine dependence, cigarettes, uncomplicated; Z79.899 Other long term (current) drug therapy
CPT/HCPCS: 01712; 64415; 76942; J0690; J1100; J1885; J2001; J2250; J2405; J2704; J2795

== ENCOUNTER 2020-08-18 06:41 | Inpatient (IN) | payer MEDICARE, OTHER ==
[~2020-08-18] VITALS: Ht 167.6 cm; Wt 73.8 kg
[~2020-08-18 06:41] MED LIST changes: +FIBER GUMMIES1 EACH PO; +HYDROCODON-ACE1 EA10 PO; +MULTIVITAMINS1 EAC7 PO
[2020-08-18] MEDS ORDERED: VISTARIL25 MG PO (06:50)
--- NOTE | 2020-08-18 10:20 | NUR ---
50 year old male patient ADMITTED TO CCU UNDER DR. MELENDEZ WITH DX OF POSSIBLE UPPER GIB. PATIENT REPORT HE HAS BBEN HAVING DARK BLOODY STOOLS FOR PAST 4 DAY, VOMITED IMELDA RED BLOOD THIS MORNING, ARRIVED TO ED VIA EMS. PATIENT HAVING ORTHOSTATIC DROP IN BP AND BECOMES INCREASE DIZZINESS, DIAPHORTIC WITH MOVEMENT. PATIENT DID HAVE SURGERY FOR L TENNIS ELBOW LAST WEEK, DENIES USE OF NSIDS. UPON ADMIT PATIENT IS AWAKE AND ALERT. ADMISSION PROCESS STARTED.
--- NOTE | 2020-08-18 11:00 | NUR ---
C/O INTERMITTENT CRAMING LIKE PAIN IN RIGHT LOWER ABD TO AROUND MID BACK, PATIENT STATES THIS IS NOT LIKE THE BACK PAIN CHRONIC PAIN HE HAS. ANXIOUS AT TIMES. GIRLFRIEND IN ROOM.
--- NOTE | 2020-08-18 11:10 | NUR ---
UP TO COMMODE, THIS IS THE THIRD TIME SINCE ADMIT PATIENT UP TO COMMED TO EXPELL SMALL MELENA STOOL. CONTINUES WITH CRAMPING LIKE PAINS IN ABD AND RIGHT FLANK AREA.
--- NOTE | 2020-08-18 11:20 | NUR ---
OOB TO COMMODE WITH ASSIST, HR TO 120 FROM 100 WITH EXERTION. C/O MILD DIZZINESS. EXPELLED LARGE MELENA STOOL. UPON RETURN TO BED, HR TO 141. PATIENT FEELING FAINT. HOB LOWERED. AFTER APPROX 5 MIN HR <100, STATES HE FEELS BETTER.
--- NOTE | 2020-08-18 11:25 | NUR ---
NAUSEATED. ZOFRAN 4 MG IV GIVEN. BELCHING FREQUENTLY. DR. KATHLEEN HERE TO SEE PATIENT. PATIENT TO HAVE UPPER EGD THIS AFTERNOON AROUND 5 PM.
--- NOTE | 2020-08-18 11:40 | NUR ---
BACK TO COMMODE TO EXPELL SMALL MELENA STOOL, BACK TO BED W/O INCIDENT. HR INCREASES WITH EXERTION.
--- NOTE | 2020-08-18 12:30 | NUR ---
DILAUDID 0.5 MG IV GIVEN FOR PAIN.
[2020-08-18] MEDS ORDERED: HYDROXYZINE PAM50 MG PO (12:34)
--- NOTE | 2020-08-18 12:46 | NUR ---
IV DILAUDID 0.5 MG IV REPEATED FIRST DOSE OF DILAUDID NOT EFFECTIVE. DAMP RAG APPLIED. PATIENT C/O FEELING HOT.
--- NOTE | 2020-08-18 13:30 | NUR ---
DR. SALAMANCA HERE. SAID IT IS FINE TO TAKE OFF LEFT ARM CAST/WRAP, THIS DONE. LEFT ARM ELEVATED ON PILLOW.
[2020-08-18] MEDS ORDERED: BUSPIRONE HCL5 MG PO (14:45)
--- NOTE | 2020-08-18 14:46 | NUR ---
MED REC COMPLETE
--- NOTE | 2020-08-18 15:46 | NUR ---
CHART READY FOR EGD PROCEDURE. PATIENT CALLS APPROPRIATELY TO GET UP TO COMMODE WITH ASSISTANCE. FAMILY MEMBER AT BEDSIDE ASSISTING WITH NEEDS. PATIENT COOPERATIVE AND FRIENDLY. TOLERABLE ABDOMINAL PAIN NOW.
--- NOTE | 2020-08-18 16:23 | NUR ---
patient off floor at 1620 for procedure.
--- NOTE | 2020-08-18 17:05 | NUR ---
PT BACK FROM PROCEDURE. SBA TO BED.
--- NOTE | 2020-08-18 17:20 | NUR ---
08/18/20 1720 Elke Camacho 1643 PT ARRIVED IN PACU SLEEPY WITH NO C/O'S. 1655 DR AT BEDSIDE TALKING WITH PT. ALL QUESTIONS ANSWERED. 1705 TO CCU VIA MEHUL ON LOBSTER MAN.
--- NOTE | 2020-08-18 20:00 | NUR ---
PT AT THIS TIME IS AAOX4 AND IN GOOD SPIRITS. PT AT THIS TIME HAS 7/10 PAIN. PT DENIES NAUSEA. PT STILL A BIT TACHY IN THE LOW 100'S. OTEHR V/S ARE WDL. PT ALSO DENIES SOB AND DIZZINESS. ABD SOUNDS ARE ACTIVE AND ABD IS NOT DISTENDED WAS STATED BY PT. PT IS PASSING LOTS OF FLATUS. ABD IS SOFT AND NOT TENDER TO TOUCH. OVERALL PT IS STILL VERY PALE IN COLOR. RADIAL AND PEDIS PULSES ARE +2, NO PERIPHERAL EDEMA NOTED., ALL LOBES ARE CLEAR AT THIS TIME.
--- NOTE | 2020-08-18 22:00 | NUR ---
PT HAS BEEN UP TO VOID A COUPLE OF TIMES SINCE START OF SHIFT. PT ONLY VOIDS MINIMAL AMOUNTS EACH TIME BUT DENIES AN FULL BALDDER. PT STATED THAT THIS WAS NORMAL FOR HIM... PT HAS >20RR AND >100HR WHEN GETTING UP TO BEDSIDE COMMODE.
--- NOTE | 2020-08-18 22:41 | NUR ---
PT JUST HAD A VERY SMALL BM WHICH HAD VISIBLE IMELDA BLOOD PRESENT.
--- NOTE | 2020-08-19 00:02 | NUR ---
AT THIS POINT, PT IS TAKING LONGER TO RECOVER FROM GETTING UP THE BEDSIDE COMMODE INTO BED. ACTIVITY INTOLERANCE HAS INCREASED SINCE START OF THIS SHIFT. RR NOW >30 AND HR >120'S AND EACH IS SUSTAINED LONGER AFTER GETTING BACK INTO BED. RLL HAS SOME WHEEZING PRESENT OTHE LOBES ARE CLEAR. WILL CONTINUE TO MONITOR. PAIN IN LEFT ELBOW AND FLANK RIGHT SIDE IS 8/10.
--- NOTE | 2020-08-19 01:30 | NUR ---
PT DID SLEEP SOME. PT STILL USES BEDSIDE COMMODE FREQUENTLY.
--- NOTE | 2020-08-19 02:50 | PATH ---
[facility] [address], [place] [address] Signed ORDERING PHYSICIAN: Mehrdad Whitfield MD PATIENT NAME: GISELLA BERGER II GENDER: M : 1970 Prior History: DATE CASE NUM ADEQUACY DIAGNOSIS HPV RESULTS PHYSICIAN The 5 most recent reports are included. This history does not include results of pap smears performed at another laboratory. SPECIMEN(S): MOLECULAR PATHOLOGY RESULTS: SARS-CoV-2 Not Detected ADDITIONAL NOTES.: The [place] Fusion SARS-CoV-2 Assay is a multiplex real-time PCR (RT-PCR) in vitro diagnostic test intended for the qualitative detection of RNA from SARS-CoV-2 from individuals who meet COVID-19 clinical and/or epidemiological criteria. In general, SARS-CoV-2 RNA can be detected during the acute phase of infection. Positive results indicate the presence of SARS-CoV-2 RNA. Clinical correlation with patient history and other diagnostic information is necessary to determine patient infection status. Positive results do not rule out bacterial infection or co-infection with other viruses. Negative results do not preclude SARS-CoV-2 infection and should not be used as the sole basis for patient management decisions. Negative results must be combined with other clinical observations, patient history, and epidemiological information. The [place] Fusion SARS-CoV-2 Assay is not yet approved or cleared by the [place] FDA. When there are no FDA-approved or cleared tests available, and other criteria are met, FDA can make tests available under an emergency access mechanism called an Emergency Use Authorization (EUA). The EUA for this test is supported by the Wellness Trainer of Health and Human Service's (HHS's) declaration that circumstances exist to justify the emergency use of in vitro diagnostics for the detection and/or diagnosis of the virus that causes COVID-19. This EUA will remain in effect for the duration of the COVID-19 declaration justifying emergency of IVDs, unless it is terminated or PATIENT NAME: GISELLA BERGER II PATHOLOGY DATE OF : 66 REPORT #: [id number] PHYSICIAN: COLLINS PATHOLOGY PCP: GENESIS SHULTZ MD REPORT IS CONFIDENTIAL AND NOT TO BE RELEASED WITHOUT AUTHORIZATION [facility] [address] [facility] [place], [place] [address] Signed revoked by FDA, after which the test may no longer be used. The [place] Fusion SARS-CoV-2 Assay is for use only under EUA in US laboratories certified under the Clinical Laboratory Improvement Amendments of 1988 (CLIA) to perform high complexity tests. [facility] is certified under CLIA to perform high complexity clinical laboratory testing. PERFORMING LABORATORY.: Molecular testing was performed by [facility] [address] [place] [address] (Service Loss Control Consultant: Yared Burton D.O.; CLIA#: [id number]) Diagnostician: System Interface Pathologist Electronically Signed 08/19/2020 Copies: ~ PATIENT NAME: GISELLA BERGER II PATHOLOGY DATE OF : 66 REPORT #: [id number] PHYSICIAN: COLLINS WAGNER PCP: GENESIS SHULTZ MD REPORT IS CONFIDENTIAL AND NOT TO BE RELEASED WITHOUT AUTHORIZATION
--- NOTE | 2020-08-19 03:39 | NUR ---
PT HAD ANOTHER VERY SMALL BM. THERE WERE A COUPLE OF RED CLOTS PRESENT THAT WERE SMALL IN SIZE.
--- NOTE | 2020-08-19 03:43 | NUR ---
PT STILL HAS SOME WHEEZING PRESENT IN THE BASES. SKIN IS STILL PALE, PT AAOX4, PAIN WELL CONTROLLED WITH PRN MEDS. ABDOMEN SOFT AND NON-DISTENDED. OVERALL NO NEW CONCERNS NOTED.
--- NOTE | 2020-08-19 05:30 | NUR ---
PT AT THIS TIME IS AWAKE IN BED. PT HAS NO NEEDS OR ANY CONCERNS AT THIS TIME.
--- NOTE | 2020-08-19 06:20 | CONS ---
[facility] [address], [place] [address] Signed DATE OF CONSULTATION: 08/18/2020 DATE OF CONSULTATION: 08/18/2020 CHIEF COMPLAINT: Hematemesis. HISTORY OF PRESENT ILLNESS: Gisella is a 50-year-old gentleman, who underwent left elbow surgery last week with Dr. Hi. About four days ago, he started having melena. He then had some hematemesis this morning. He came to the emergency room for evaluation. He is also complaining of some low back pain. He came to the emergency room and was found to have a hemoglobin of 11.5. That is down from his preop hemoglobin. BUN is up a little at 36. INR is good. He is a little pale and a little dizzy when he stands up. He has been admitted to our internal medicine service. I have been asked to see him as a general surgeon on-call. PAST MEDICAL HISTORY: Thyroid, low back pain, right shoulder pain, and kidney stones. PAST SURGICAL HISTORY: Includes incision and drainage of the left elbow, L3-L5 back surgery, left tennis elbow surgery and then a colonoscopy in [address] Lanza. SOCIAL HISTORY: He does not smoke or drink. He does have a little marijuana. Dr. Brigitte Law is his primary care provider. He prefers the [facility]. Tom Song is his lifelong partner at [phone]. He is a disabled but does work at our [email or web address] station once in a while. He has two stepsons. He does drive. FAMILY HISTORY: His mother had colon cancer in her 60s. Dad had prostate cancer. Sister had lung cancer from smoking. REVIEW OF SYSTEMS: He had 10 systems reviewed and he went through his past medical history with me. ALLERGIES: None. MEDICATIONS: [place] 5 mg, levothyroxine, and hydroxyzine. Electronically Signed By: BEN KATHLEEN MD 08/19/20 0620 PATIENT NAME: GISELLA BERGER II CONSULTATION DATE OF : 66 REPORT #: [id number] PHYSICIAN: BEN KATHLEEN MD PCP: BRIGITTE LAW MD REPORT IS CONFIDENTIAL AND NOT TO BE RELEASED WITHOUT AUTHORIZATION [facility] [address], [place] [address] Signed PHYSICAL EXAMINATION: VITAL SIGNS: Blood pressure 129/78, heart rate is between 86 and 114, respiratory rate 16 to 23, temperature is 98.1, 100% on room air. GENERAL: Gisella is a 50-year-old gentleman, who is lying supine in his hospital bed with Ivamay and the nurse at the bedside. He is a little pale, but he is alert, awake and interactive. LUNGS: Generally clear to auscultation bilaterally. HEART: Regular rate and rhythm without murmur at this time. ABDOMEN: Generally flat but he runs his hand along the costal margin. The right costal margin has some area of tenderness. LABORATORY DATA: His white blood count 15.2, hemoglobin 11.5 neutrophils 69, platelets 300. BUN 36, creatinine 0.96. INR 1. Liver function tests are negative. Albumin is 3.6. RADIOGRAPHIC STUDIES: None. ASSESSMENT AND PLAN: Gisella is a 50-year-old gentleman, who presents with hematemesis and melena. He is certainly anemic as well. He is being kept n.p.o., given IV fluids and he has some blood type and cross with serial hemoglobins. Our OR cruiser occupied currently, so we will plan on doing his EGD this afternoon once we have a crew available. I reviewed all this with Gisella and his friend Tom . They have expressed understanding and agree with the above plan. Ben Kathleen MD ALB/MODL /[id number] cc: Brigitte Law MD Copies: ~ Electronically Signed By: BEN KATHLEEN MD 08/19/20 0620 PATIENT NAME: GISELLA BERGER II CONSULTATION DATE OF : 66 REPORT #: [id number] PHYSICIAN: BEN KATHLEEN MD PCP: BRIGITTE LAW MD REPORT IS CONFIDENTIAL AND NOT TO BE RELEASED WITHOUT AUTHORIZATION
--- NOTE | 2020-08-19 06:20 | OR ---
[facility] [address] [place], [place] [address] Signed DATE OF OPERATION: 08/18/2020 SURGEON: Ben Kathleen MD DATE OF PROCEDURE: 08/18/2020 PREOPERATIVE DIAGNOSES: 1. Hematemesis. 2. Melena. 3. Anemia. 4. NSAIDs. POSTOPERATIVE DIAGNOSES: Pyloric bulb/duodenal ulcers x2. PROCEDURE: EGD with CLOtest and biopsies of the pyloric bulb and antrum. ESTIMATED BLOOD LOSS: None. FINDINGS: Gisella had two ulcers in the pyloric bulb, one was smaller and one was moderate. Neither one is bleeding currently. There was no blood whatsoever in the stomach. INDICATIONS: Gisella is a 50-year-old gentleman, who had his elbow surgery about a week ago. He has been alternating between hydrocodone and his ibuprofen. Four days ago, he started having melena. Then this morning, he had hematemesis. He finally came into the emergency room for evaluation. White count was up at 15.2 and hemoglobin was down to 11.5. BUN is up a little at 36. INR was normal along with his liver function test and his albumin. He had been admitted to the Internal Medicine Service. He has been receiving IV fluids today and been n.p.o. I had met him during the lunch hour and he was a little pale but otherwise fairly good. When he was moving around to get on the toilet and so forth, he was a little tachycardic. So, we increased his IV fluids. He said he has been urinating quite well this afternoon. In the meantime, the hemoglobin levels have come down a bit, but no further hematemesis and no further melena. He said he thinks the melena is all out at this point. I reviewed with Gisella and his significant other the above findings. We had discussed upper endoscopy in detail. This Electronically Signed By: BEN KATHLEEN MD 08/19/20 0620 PATIENT NAME: GISELLA BERGER II OPERATIVE REPORT DATE OF : 66 REPORT #: [id number] PHYSICIAN: BEN KATHLEEN MD PCP: BRIGITTE LAW MD REPORT IS CONFIDENTIAL AND NOT TO BE RELEASED WITHOUT AUTHORIZATION [facility] [address] [place], [place] [address] Signed went through a colonoscopy in 2019 and said it seemed to go well. I explained to him that in this situation, we always have an anesthesia provider help with increased airway monitoring and control. He understands the nature of upper endoscopy along with its risks including, but not limited to gas bloating, crampy abdominal pain, bleeding, perforation requiring surgery, and missed diagnosis. He also understands he may need additional procedures and/or repeat upper endoscopy. He had expressed understanding and wished to proceed. DESCRIPTION OF PROCEDURE: Gisella was taken into our endoscopy suite and placed in a supine semi-recumbent position under general endotracheal tube anesthesia by our nurse vocal music teacher. His lips are well lubricated. We passed our gastroscope down under direct visualization into the stomach itself. There was no blood whatsoever in the esophagus or stomach. No ulceration or irritation in the stomach. As we passed in the pyloric channel, we immediately saw one small nonbleeding ulcer and just to the right of that was a moderate-size nonbleeding ulcer. There were inflammatory changes around that area. We passed the camera out in the third portion of the duodenum and it was fine. We came back and took a single biopsy of the pyloric bulb and an additional biopsy from antrum for pathologic review. We took an additional biopsy of the antrum for CLOtest. Upon retroflexion of the scope, there was no evidence of a hiatal hernia. The scope was withdrawn up through the GE junction, which was compliant without stricture. There was no disruption to the Z-line. There was no Santos's mucosa. There was no distal esophagitis. After this, the middle and upper esophagus were unremarkable. The gas had been suctioned out and the gastroscope withdrawn. Gisella tolerated the procedure quite well. RECOMMENDATIONS: Gisella will return to his ICU bed, started on clear liquids and maintained on his proton pump inhibitor b.i.d. Ben Kathleen MD ALB/MODL /[id number] cc: Evan Hi MD Electronically Signed By: BEN KATHLEEN MD 08/19/20 0620 PATIENT NAME: GISELLA BERGER II OPERATIVE REPORT DATE OF : 66 REPORT #: [id number] PHYSICIAN: BEN KATHLEEN MD PCP: BRIGITTE LAW MD REPORT IS CONFIDENTIAL AND NOT TO BE RELEASED WITHOUT AUTHORIZATION [address] [address] Signed Brigitte Law MD Copies: EVAN HI MD ~ Electronically Signed By: BEN KATHLEEN MD 08/19/20 0620 PATIENT NAME: GISELLA BERGER GAL MENDEZ OPERATIVE REPORT DATE OF : 66 REPORT #: [id number] PHYSICIAN: BEN KATHLEEN MD PCP: BRIGITTE LAW MD REPORT IS CONFIDENTIAL AND NOT TO BE RELEASED WITHOUT AUTHORIZATION
--- NOTE | 2020-08-19 06:34 | EKG ---
[facility] [address] [facility] [place] [address] Signed Sinus tachycardia Right atrial enlargement Borderline ECG When compared with ECG of 07-AUG-2020 09:12, Vent. rate has increased BY 47 BPM Confirmed by BAKARI MELENDEZ MD ([id number]) on 08/19/2020 6:34:26 AM Electronically Signed By: BAKARI MELENDEZ MD 08/19/20 0634 PATIENT NAME: GISELLA BERGER II Electrocardiogram DATE OF : 66 PHYSICIAN: BAKARI MELENDEZ MD REPORT #: [id number] REPORT IS CONFIDENTIAL AND NOT TO BE RELEASED WITHOUT AUTHORIZATION
--- NOTE | 2020-08-19 07:51 | NUR ---
REPORT RECEIVED FROM NIGHTSHIFT RN, CARE OF PT RESUMED AT THIS TIME, WILL CONTINUE PLAN OF CARE.
--- NOTE | 2020-08-19 08:00 | NUR ---
Update from Rn.. Pt weak,tired, Ulcers x 2. Will see tomorrow.
--- NOTE | 2020-08-19 08:41 | NUR ---
bed linens changed. fresh water given. pt.stated he went to the bathroom twice and urinated into toilet and flushed before we could measure. I placed a hat in toilet and he will now use that. pt. stated he will do his own bed bath. no other needs at this time.
--- NOTE | 2020-08-19 09:11 | NUR ---
PT LAYING IN BED WATCHING TV. PT IS ALERT AND ORIENTED. PT REPORTS ONLY A MINOR HEADACHE AT THIS TIME BUT DENIES THE NEED FOR PAIN MEDICATION. PT. ALSO DENIES NEED FOR NICOTINE PATCH AT THIS TIME. PT REPORTS NO FURTHER NEEDS AT THIS TIME, WILL CONTINUE PLAN OF CARE. CALL LIGHT WITHIN REACH, BED IN LOWEST POSITION.
--- NOTE | 2020-08-19 09:52 | NUR ---
PT LAYING IN BED WATCHING TV WITH PARTNER AT BEDSIDE. BLOOD INFUSING AT 75ML/HR. PT REPORTS NO NEW PAIN OR SYMPTOMS AT THIS TIME. PT REPORTS NO FURTHER NEEDS AT THIS TIME. WILL CONTINUE TO PLAN OF CARE.
--- NOTE | 2020-08-19 10:18 | NUR ---
PT LAYING IN BED WITH PARTNER AT BEDSIDE. PT REPORTS NO FURTHER NEEDS AT THIS TIME. BLOOD INFUSING ORDERED INTO RIGHT WRIST. WILL CONTINUE PLAN OF CARE.
--- NOTE | 2020-08-19 11:15 | NUR ---
PT LAYING IN BED WITH PARTNER WATCHING TV. BLOOD INFUSING ORDERED, PT HAD TO USE RESTROOM AND WAS ABLE TO WALK OVER TO BATHROOM WITHOUT ASSISTANCE. HR WAS AROUND 100 B PM WHILE DOING SO. PT REPORTED NO PAIN OR LIGHTHEADEDNESS WHEN GOING TO BATHROOM AND BACK. PT REPORTS NO NEEDS AT THIS TIME. WILL CONTINUE PLAN OF CARE. CALL LIGHT WITHIN REACH, BED IN LOWEST POSITION.
--- NOTE | 2020-08-19 11:37 | NUR ---
PT LAYING IN BED WATCHING TV. PT REPORTS NO PAIN AT THIS TIME. PT JUST FINISHED USING URINAL WHILE SITTING AT SIDE OF BED, HR BRIEFLY INCREASED TO 98 BPM DURING THAT TIME. PT. REPORTS NO LIGHTHEADEDNESS WHEN DOING SO. BLOOD STILL INFUSING INTO R WRIST AT 175ML/HR. WILL CONTINUE PLAN OF CARE. CALL LIGHT WITHIN REACH, BED IN LOWEST POSITION.
--- NOTE | 2020-08-19 12:25 | NUR ---
PT AWAKE IN BED, 2ND BAG OF PACKED RBC'S STARTED. PT REPORTS NO NEW SIGNS OR SYMPTOMS. PT REPORTS NO FURTHER NEEDS AT THIS TIME, WILL CONTINUE TO MONITOR AND CONTINUE PLAN OF CARE.
--- NOTE | 2020-08-19 13:00 | NUR ---
RESPONED TO PT COMING BACK FROM USING BATHROOM IN ROOM. PT STATES HE FELT NO LIGHTHEADEDNESS AND STATES HE FEELS IF HES IMPROVING. PT DENIES ANY FURTHER NEEDS AT THIS TIME. SECOND UNIT OF BLOOD STILL INFUSING AT 175ML/HR INTO R WRIST. WILL CONTINUE PLAN OF CARE.
--- NOTE | 2020-08-19 13:24 | NUR ---
CONNECTED WITH PTS' FIANCE' SHE WAS RETURNING FROM [place]. SHE ADMITTED SHE IS WEARY OF COMING HERE-3RD TIME FOR FAMILY MEMBERS IN 3 MONTHS. GAVE ENCOURAGEMENT, WILL FOLLOW
--- NOTE | 2020-08-19 14:25 | NUR ---
RESPONDED TO PT CALL LIGHT. PT NEEDED TO USE BATHROOM . PT ABLE TO USE BEDSIDE COMMODE WITHOUT DIFFICULTY PER HIS REQUEST DUE TO THE FREQUENCY OF HIM GOING TO THE BATHROOM. SECOND UNIT OF BLOOD STILL INFUSING AT THIS TIME. PT REPORTS NO FURTHER NEEDS ASIDE FROM A BROTH SOUP WHICH HAS BEEN GIVEN TO HIM. WILL CONTINUE PLAN OF CARE.
--- NOTE | 2020-08-19 14:49 | NUR ---
PT FINISHED BLOOD INFUSION. PT REPORTS NO PAIN OR OTHER NEEDS AT THIS TIME. VITALS WITHIN NORMAL LIMIT. WILL CONTINUE PLAN OF CARE. BED IN LOWEST POSITION, PARTNER AT BEDSIDE, CALL LIGHT WITHIN REACH.
--- NOTE | 2020-08-19 17:06 | NUR ---
PT LAYING IN BED WATCHING TV AND WAITING FOR DINNER. PT STATES HE'S FEELING MUCH BETTER COMPARED TO THE MORNING. PT DENIES ANY PAIN AND ANY NEEDS AT THIS TIME ASIDE FROM HIS DINNER. DINNER ARRIVED AND PT IS CURRENTLY EATING HIS DINNER. PT REPORTS NO FURTHER NEEDS AT THIS TIME, WILL CONTINUE PLAN OF CARE.
--- NOTE | 2020-08-19 18:01 | NUR ---
1738 - PT REPORT GIVEN TO MAC CASTELLANO 1756 - PT TRANSFERRED TO [facility] [place] BED WITH BELONGINGS AND TO ROOM 113.
--- NOTE | 2020-08-19 18:07 | NUR ---
PT TO [facility] AFTER BEDSIDE REPORT @1755 ALERT AND TALKATIVE GIRLFRIEND AT BEDSIDE. PT DENIES DISCOMFORT OR NEEDS. ORIENTED TO ROOM CALL LIGHT IN REACH FRESH H20 AT BEDSIDE
--- NOTE | 2020-08-19 19:35 | NUR ---
REPORT RECEIVED FROM DAY SHIFT RN. PT LYING IN BED ALERT AND ORIENTED. LEFT ARM ELEVATED ON PILLOW. DENIES PAIN OR NAUSEA. NO NEEDS AT THIS TIME. WHITE BOARD UPDATED. CALL LIGHT IN REACH.
--- NOTE | 2020-08-19 21:29 | NUR ---
ROUNDED CHARGE. VSS. URINE HAT EMPTIED. pt REQUESTING SANDWICH BOX, FLOAT TRANSPORTATION LEAD NOTIFIED. PRIMARY RN AND TRANSPORTATION LEAD REMAIN IN ROOM.
--- NOTE | 2020-08-19 22:02 | NUR ---
EVENING ASSESSMENT COMPLETE. SCHEDULED MEDS ADMINISTERED PER EMAR. PT DENIES PAIN OR NAUSEA. LEFT ARM IN BRACE. UP TO BR INDEPENDENTLY, GAIT STEADY. BACK TO BED, SHASHI WELL. DENIES CP OR SOB. SANDWICH BOX PROVIDED PER REQUEST. NO QUESTIONS OR CONCERNS AT THIS TIME. CALL LIGHT IN REACH.
--- NOTE | 2020-08-19 22:30 | NUR ---
CALL LIGHT ANSWERED. PT HAD SMALL BOWEL MOVEMENT THAT WAS BROWN AND BLACK IN COLOR. NO IMELDA RED BLOOD NOTED.
--- NOTE | 2020-08-20 00:28 | NUR ---
PT RESTING IN BED WITH EYES CLOSED, NAD.
--- NOTE | 2020-08-20 02:33 | NUR ---
PT RETURNING TO BED FROM BR. DENIES PAIN OR NAUSEA. NO NEEDS AT THIS TIME.
--- NOTE | 2020-08-20 06:21 | NUR ---
PT INDEPENDENT UP TO BR. BACK TO BED, SHASHI WELL. REPORTS STOOL IS MOSTLY BROWN. DENIES PAIN OR NAUSEA. VS AND I&O COMPLETE. SCHEDULED MEDS ADMINISTERED.
--- NOTE | 2020-08-20 07:29 | NUR ---
REPORT RECIEVED FROM BUSINESS SYSTEMS ANALYST MARIA LUISA CASTELLANO.
--- NOTE | 2020-08-20 08:05 | NUR ---
MORNING ASSESSMENT DONE. DR. SALAMANCA IN TO ADJUST PATIENT'S RIGHT ELBOW BRACE TO FIT BETTER. PATIENT RATES PAIN 0/10. PATIENT REPORTS STOOL IS RETURNING TO NORMAL, VERY LITTLE BLACK IS PRESENT IN STOOLS. PATIENT DENIES OTHER NEEDS, HOPES TO GO HOME TODAY.
--- NOTE | 2020-08-20 09:32 | NUR ---
patient is resting in bed with guest in room. i&o and vitals done. call light in reach. no other needs at this time.
--- NOTE | 2020-08-20 10:16 | NUR ---
DISCUSSED FOLLOW UP APPOINTMENTS WITH PATIENT. PATIENT RESTING IN ROOM, DENIES NEEDS.
[2020-08-20] MEDS ORDERED: PANTOPRAZOLE SO40 MG PO (10:43)
--- NOTE | 2020-08-20 11:21 | NUR ---
PATIENT GIVEN DISCHARGE INSTRUCTIONS, QUESTIONS ANSWERED. PATIENT AMBULATED TO FRONT DOOR WITH GIRLFRIEND.
--- NOTE | 2020-08-20 12:00 | NUR ---
Spoke with Rodriguez. States he is feeling "so much better". Pt states he is better than baseline. SO Tom in the room. Pt plans on dc to home today with Tom. Denies needs or issues. Plans on returning to work. States he had two normal bms last night.
--- NOTE | 2020-08-20 14:25 | NUR ---
CONNECTED WITH PT Nasreen WHITAKER HIS FIANCE' IN [place] THEY WERE DC'D. GAVE ENCOURAGEMENT, PT THANKED ME AND SEEMED READY TO LEAVE. GAVE BLESSING
--- NOTE | 2020-08-20 15:42 | PATH ---
[facility] [address] [place], [place] [address] Signed SPECIMEN(S): A DUODENUM BULB SPECIMEN(S): B ANTRUM/PYLORUS SPECIMEN SOURCE: A. DUODENUM BULB B. ANTRUM/PYLORUS CLINICAL HISTORY: Pre: GI bleed. Post: Duodenal ulcers. MICROSCOPIC DESCRIPTION: Histologic sections of all submitted blocks are examined by light microscopy. These findings, together with the gross examination, support the pathologic diagnosis. FINAL PATHOLOGIC DIAGNOSIS: A. Duodenum, bulb, biopsy: - Duodenal mucosa with gastric surface cell metaplasia, compatible with peptic duodenitis. - Negative for Helicobacter organisms on HE stain. - Negative for dysplasia or malignancy. B. Stomach, antrum/pylorus, biopsy: - Antral mucosa with mild chronic, inactive gastritis. - Negative for Helicobacter organisms on HE stain. - Negative for dysplasia or malignancy. COMMENT: As part of [email or web address]' Quality Improvement Program, specimen A was reviewed by another member of our pathology staff. NAL:NRT:cml:C2NR GROSS DESCRIPTION: Two specimens are received in two containers, labeled "JR." A. The specimen, labeled "JR," and designated on the requisition "duodenum bulb biopsy," is received in formalin and consists of one fragment of pink-mullins tissue (0.4 x 0.3 x 0.2 cm). The specimen is submitted entirely in cassette (A1). B. The specimen, labeled "JR," and designated on the requisition "antrum/pylorus biopsy," is received in formalin and consists of one fragment of pink-mullins tissue (0.4 x 0.2 x 0.2 cm). The specimen is submitted entirely in cassette (B1). AC (under the direct supervision of a pathologist) PATIENT NAME: GISELLA BERGER II PATHOLOGY DATE OF : 66 REPORT #: [id number] PHYSICIAN: COLLINS WAGNER PCP: GENESIS SHULTZ MD REPORT IS CONFIDENTIAL AND NOT TO BE RELEASED WITHOUT AUTHORIZATION [facility] [address] [place] [address] Signed The Gross Description was prepared using a voice recognition system. The report was reviewed for accuracy; however, sound-alike word errors, addition and/or deletions may occur. If there is any question about this report, please contact Client Services. PERFORMING LABORATORY: The technical component was performed by [email or web address] [address] (Flooring Machine Operator: Madonna Wells MD; CLIA# [id number]). Professional interpretation was performed by [facility] [place], [address] [address] (CLIA# [id number]). Diagnostician: Julee Connolly MD Pathologist Electronically Signed 08/20/2020 Copies: ~ PATIENT NAME: GISELLA BERGER II PATHOLOGY DATE OF : 66 REPORT #: [id number] PHYSICIAN: COLLINS PATHOLOGY PCP: GENESIS SHULTZ MD REPORT IS CONFIDENTIAL AND NOT TO BE RELEASED WITHOUT AUTHORIZATION
== END 2020-08-20 11:20 | disposition home or self-care (01) | DRG 378 ==
LOC: ED 06:41 → CCU 10:03 → MS 08-19 17:53
PROVIDERS: Colon & Rectal Surgery; ADMIT Internal Medicine; ATTEND Internal Medicine
PROC: 0DB68ZX Excision of Stomach, Via Natural or Artificial Opening Endoscopic, Diagnostic (ICD-10-PCS; principal; 2020-08-18 16:30)
PROC: 30233N1 Transfusion of Nonautologous Red Blood Cells into Peripheral Vein, Percutaneous Approach (ICD-10-PCS; 2020-08-19)
DX: K26.4 Chronic or unspecified duodenal ulcer with hemorrhage (principal); D62 Acute posthemorrhagic anemia; Z20.828 Contact with and (suspected) exposure to other viral communicable diseases; K25.4 Chronic or unspecified gastric ulcer with hemorrhage; F17.210 Nicotine dependence, cigarettes, uncomplicated; F17.220 Nicotine dependence, chewing tobacco, uncomplicated; E03.9 Hypothyroidism, unspecified; M54.9 Dorsalgia, unspecified; M25.511 Pain in right shoulder; S04.5 Injury of facial nerve; R29.810 Facial weakness; Z79.899 Other long term (current) drug therapy; Z79.1 Long term (current) use of non-steroidal anti-inflammatories (NSAID); Z79.891 Long term (current) use of opiate analgesic
CPT/HCPCS: 36415; 36430; 80048; 80053; 83735; 85018; 85025; 85610; 85730; 86677; 86850; 86900; 86901; 86920; 93005; 93010; 96374; 99285-25; 99406; C9113; J0330; J1170; J2001; J2405; J2704; J3010; J7030; J7121; P9016

== ENCOUNTER 2021-01-16 14:36 | Emergency (ER) | payer MEDICARE, OTHER ==
[~2021-01-16] VITALS: Ht 167.6 cm; Wt 73.5 kg
[~2021-01-16 14:36] MED LIST changes: +BUSPIRONE HCL5 MG PO; +HYDROXYZINE PAM50 MG PO; +PANTOPRAZOLE SO40 MG PO; +VISTARIL25 MG PO
[2021-01-16] MEDS ORDERED: GABAPENTIN300 MG PO (14:49)
[2021-01-16] MEDS ORDERED: VENTOLIN HFA18 GM INH (16:48)
[2021-01-16] MEDS ORDERED: HYDROCODON-ACE1 EA11 PO (18:00)
[2021-01-16] MEDS ORDERED: ONDANSETRON ODT8 MG PO (18:00)
== END 2021-01-16 18:23 | disposition home or self-care (01) ==
LOC: ED 14:36
DX: K52.9 Noninfective gastroenteritis and colitis, unspecified (principal); F17.200 Nicotine dependence, unspecified, uncomplicated; Z79.899 Other long term (current) drug therapy
CPT/HCPCS: 74177; 80053; 81001; 83690; 85025; 96375; 99284-25; J1170; J2405; J7030; Q9967

== ENCOUNTER 2021-04-22 04:33 | Emergency (ER) | payer MEDICARE, OTHER ==
[~2021-04-22] VITALS: Ht 167.6 cm; Wt 74.5 kg
[~2021-04-22 04:33] MED LIST changes: +HYDROCODON-ACE1 EA11 PO; +ONDANSETRON ODT8 MG PO; +VENTOLIN HFA18 GM INH
--- OUTSIDE RECORDS SUMMARY | 2021-04-22 04:34 | XMS ---
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 EBrando VISIT COUNT (12 MO.) 3 [facility]ad TOTAL 3 NOTE: Visits indicate total known visits. ED/UCC VISIT TRACKING (12 MO.) 04/22/2021 04:33 [facility] [place] TYPE: Emergency COMPLAINT: - WEAKNESS, VOMITING 01/16/2021 14:37 [facility] [place] TYPE: Emergency COMPLAINT: - ABD PAIN, BLOOD IN STOOL DIAGNOSES: - Other superintendent container terminal (current) drug therapy - Nicotine dependence, unspecified, uncomplicated - Noninfective gastroenteritis and colitis, unspecified 08/18/2020 06:42 [facility] [place] TYPE: Emergency COMPLAINT: - VOMITING BLOOD INPATIENT VISIT TRACKING (12 MO.) 08/18/2020 10:03 [facility] [place] TYPE: Medical Surgical COMPLAINT: - GI BLEED DIAGNOSES: - Other superintendent container terminal (current) drug therapy - Chronic or unspecified gastric ulcer with hemorrhage - Chronic or unspecified duodenal ulcer with hemorrhage - Facial weakness - Dorsalgia, unspecified - Injury of facial nerve, unspecified side, sequela - senior care (current) use of non-steroidal anti-inflammatories (NSAID) - Acute posthemorrhagic anemia - Nicotine dependence, cigarettes, uncomplicated - senior care (current) use of non-steroidal anti-inflammatories (NSAID) - Hypothyroidism, unspecified - Injury of facial nerve, unspecified side, sequela - superintendent container terminal (current) use of opiate analgesic - Acute posthemorrhagic anemia - superintendent container terminal (current) use of opiate analgesic - Nicotine dependence, cigarettes, uncomplicated - Nicotine dependence, chewing tobacco, uncomplicated - Dorsalgia, unspecified - Pain in right shoulder - Pain in right shoulder - Nicotine dependence, chewing tobacco, uncomplicated - Hypothyroidism, unspecified - Chronic or unspecified duodenal ulcer with hemorrhage - Contact with and (suspected) exposure to other viral communicable diseases - Other long-term (current) drug therapy - Facial weakness - Chronic or unspecified gastric ulcer with hemorrhage - Contact with and (suspected) exposure to other viral communicable diseases - Gastrointestinal hemorrhage, unspecified [email or web address]
== END 2021-04-22 06:40 | disposition home or self-care (01) ==
LOC: ED 04:33
DX: T67.5XXA Heat exhaustion, unspecified, initial encounter (principal); K62.5 Hemorrhage of anus and rectum; F17.200 Nicotine dependence, unspecified, uncomplicated; Z88.8 Allergy status to other drugs, medicaments and biological substances; Z79.899 Other long term (current) drug therapy
CPT/HCPCS: 96374; 99284-25; J2405; J7030

== ENCOUNTER 2021-09-03 22:16 | Emergency (ER) | payer MEDICARE, OTHER ==
[~2021-09-03] VITALS: Ht 167.6 cm; Wt 74.4 kg
--- OUTSIDE RECORDS SUMMARY | 2021-09-03 22:20 | XMS ---
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 Care History Medical/Surgical 04/23/2021 [facility] - Patient is currently established with [facility]. If patient is seen in the ED during business hours. Please contact CHWs at [facility]. Care Recommendation: If this patient has had 5 or more Emergency Department visits in the last 12 months.\T\nbsp; Patient will require education on the scope and purpose of the ED as an acute care provider not a Primary Care Provider and should not be utilized for chronic conditions.\T\nbsp; These are guidelines and the provider should exercise clinical judgment when providing care. E.D. VISIT COUNT (12 MO.) 3 MALACHI Prasad TOTAL 3 NOTE: Visits indicate total known visits. ED/UCC VISIT TRACKING (12 MO.) 09/03/2021 22:17 [facility] [place] TYPE: Emergency COMPLAINT: - LEFT SIDE STOMACH PAIN, PASSING BLOOD 04/22/2021 04:33 [facility] [place] TYPE: Emergency COMPLAINT: - WEAKNESS, VOMITING DIAGNOSES: - Hemorrhage of anus and rectum - Heat exhaustion, unspecified, initial encounter - Allergy status to other drugs, medicaments and biological substances - Other intermodal dispatcher (current) drug therapy - Nicotine dependence, unspecified, uncomplicated - Weakness 01/16/2021 14:[address] [facility] TYPE: Emergency COMPLAINT: - ABD PAIN, BLOOD IN STOOL DIAGNOSES: - Other senior care (current) drug therapy - Nicotine dependence, unspecified, uncomplicated - Noninfective gastroenteritis and colitis, unspecified INPATIENT VISIT TRACKING (12 MO.) No inpatient visits to display in this time frame [email or web address]
[2021-09-04] MEDS ORDERED: HYDROCODON-ACE1 EA10 PO (01:20)
[2021-09-04] MEDS ORDERED: PROTONIX40 MG PO (01:20)
== END 2021-09-04 01:34 | disposition home or self-care (01) ==
LOC: ED 22:16
DX: R10.12 Left upper quadrant pain (principal); K62.5 Hemorrhage of anus and rectum; R74.8 Abnormal levels of other serum enzymes; F17.200 Nicotine dependence, unspecified, uncomplicated; Z88.8 Allergy status to other drugs, medicaments and biological substances; Z79.899 Other long term (current) drug therapy
CPT/HCPCS: 74177; 80053; 81001; 83690; 85025; 99284-25; Q9967

== ENCOUNTER 2021-09-12 23:38 | Emergency (ER) | payer MEDICARE, OTHER ==
[~2021-09-12] VITALS: Ht 167.6 cm; Wt 78.5 kg
[2021-09-12] MEDS ORDERED: METHYLPREDNISOLO4 M1 PO (23:44)
--- OUTSIDE RECORDS SUMMARY | 2021-09-12 23:44 | XMS ---
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 Care History Medical/Surgical 04/23/2021 [facility] - Patient is currently established with [facility]. If patient is seen in the ED during business hours. Please contact CHWs at [facility]. Care Recommendation: If this patient has had [...] providing care. E.D. VISIT COUNT (12 MO.) [address] [facility] TOTAL 4 NOTE: Visits indicate total known visits. ED/UCC VISIT TRACKING (12 MO.) 09/12/2021 23:38 [facility] [place] TYPE: Emergency COMPLAINT: - ABD PAIN 09/03/2021 22:17 [facility] [place] TYPE: Emergency COMPLAINT: - LEFT SIDE STOMACH PAIN, PASSING BLOOD DIAGNOSES: - Abnormal levels of other serum enzymes - Other intermodal dispatcher (current) drug therapy - Nicotine dependence, unspecified, uncomplicated - Left upper quadrant pain - Allergy status to other drugs, medicaments and biological substances - Hemorrhage of anus and rectum 04/22/2021 04:33 [facility] [place] TYPE: Emergency COMPLAINT: - WEAKNESS, VOMITING DIAGNOSES: - Hemorrhage of anus and rectum - Heat exhaustion, unspecified, initial encounter - Allergy status to other drugs, medicaments and biological substances - Other intermodal dispatcher (current) drug therapy - Nicotine dependence, unspecified, uncomplicated - Weakness 01/16/2021 14:37 [facility] [place] TYPE: Emergency COMPLAINT: - ABD PAIN, BLOOD IN STOOL DIAGNOSES: - Other residential (current) drug therapy - Nicotine dependence, unspecified, uncomplicated - Noninfective gastroenteritis and colitis, unspecified INPATIENT VISIT TRACKING (12 MO.) No inpatient visits to display in this time frame [email or web address]
[2021-09-12] MEDS ORDERED: METRONIDAZOLE500 MG PO (23:45)
[2021-09-13] MEDS ORDERED: PROTONIX40 MG PO (03:34)
== END 2021-09-13 03:54 | disposition home or self-care (01) ==
LOC: ED 23:38
DX: R10.12 Left upper quadrant pain (principal); R10.13 Epigastric pain; K62.89 Other specified diseases of anus and rectum; Z79.899 Other long term (current) drug therapy; F17.200 Nicotine dependence, unspecified, uncomplicated; Z87.442 Personal history of urinary calculi; Z88.8 Allergy status to other drugs, medicaments and biological substances; D72.829 Elevated white blood cell count, unspecified
CPT/HCPCS: 74177; 76705; 80053; 81001; 83690; 85007; 85025; 99284-25; C9803; J1170; J2405; J7030; Q9967; U0003

== ENCOUNTER 2021-11-03 17:15 | Inpatient (IN) | payer MEDICARE, OTHER ==
[~2021-11-03] VITALS: Ht 167.6 cm; Wt 69.2 kg
[~2021-11-03 17:15] MED LIST changes: +DICYCLOMINE HCL20 MG PO; +METHYLPREDNISOLO4 M1 PO; +METRONIDAZOLE500 MG PO
--- OUTSIDE RECORDS SUMMARY | 2021-11-03 17:18 | XMS ---
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 Care History Medical/Surgical 09/22/2021 [facility] Patient went to [facility] on Tuesday09/20/2021 as directed, but Clinic was closed so he went to ER. I requested he get a follow up visit with Dr. Shultz. 09/13/2021 [facility] Transferred patient call to gluer machine setup operator for ED follow up visit with Dr. Shultz. Patient stated Dr. Lanza gave him an ointment to try, but if it doesn't work he will get back to Dr. Lanza. Patient is frustrated that nobody can determine what the internal problem so it is still a problem. 04/23/2021 [facility] - Patient is currently established with [facility]. If patient is seen in the ED during business hours. Please contact CHWs at [facility]. Care Recommendation: If this patient has had [...] providing care. E.D. VISIT COUNT (12 MO.) 6 [facility]. TOTAL 6 NOTE: Visits indicate total known visits. ED/UCC VISIT TRACKING (12 MO.) [facility] Emergency COMPLAINT: - RECTAL BLEEDING 09/20/2021 10:13 [facility] [place] TYPE: Emergency COMPLAINT: - ABD PAIN, RECTAL BLEEDING DIAGNOSES: - Noninfective gastroenteritis and colitis, unspecified - Allergy status to other drugs, medicaments and biological substances - Unspecified abdominal pain - Other chcf (current) drug therapy - Nicotine dependence, unspecified, uncomplicated 09/12/2021 23:[address] [facility] [address] [facility] [place] TYPE: Emergency COMPLAINT: - ABD PAIN DIAGNOSES: - Allergy status to other drugs, medicaments and biological substances - Epigastric pain - Other intermediate manager (current) drug therapy - Elevated white blood cell count, unspecified - Nicotine dependence, unspecified, uncomplicated - Left upper quadrant pain - Personal history of urinary calculi - Other specified diseases of anus and rectum 09/03/2021 22:17 [facility] [place] TYPE: Emergency COMPLAINT: - LEFT SIDE STOMACH PAIN, PASSING BLOOD DIAGNOSES: - Abnormal levels of other serum enzymes - Other chcf (current) drug therapy - Nicotine dependence, unspecified, [...] drugs, medicaments and biological substances - Other chcf (current) drug therapy - Nicotine dependence, unspecified, uncomplicated - Weakness 01/16/2021 14:37 [facility] [place] TYPE: Emergency COMPLAINT: - ABD PAIN, BLOOD IN STOOL DIAGNOSES: - Other intermediate manager (current) drug therapy - Nicotine dependence, unspecified, uncomplicated - Noninfective gastroenteritis and colitis, unspecified INPATIENT VISIT TRACKING (12 MO.) No inpatient visits to display in this time frame [email or web address]
[2021-11-03] MEDS ORDERED: MESALAMINE DR400 MG PO (17:37)
[2021-11-03] MEDS ORDERED: MESALAMINE4 GM/60 ML PR (17:37)
[2021-11-03] MEDS ORDERED: MESALAMINE1000 MG PR (17:38)
--- NOTE | 2021-11-03 23:00 | NUR ---
PT ARRIVED TO ROOM 116, FROM ED @ 2224. A/O, SELF TRANSFERED FROM STRETCHER TO BED. PT FIANCEE PRESENT WELL. ON RA, COMPLAINS OF BEING HUNGRY, SAYS PAIN IS MININAL, REQUESTS BSC TO BE PLACED BY BED. PT REQUESTED CHICKEN BROTH, WATER AND CHOSE SUGAR FREE SPRITE HE TRIES TO KEEP HIS SUGAR INTAKE LOWER DUE TO "ULCERATIVE COLITIS" EDUCATED ABOUT CALL LIGHT.
--- NOTE | 2021-11-03 23:15 | NUR ---
pt SITTING UP IN BED, ALERT, ORIENTED TO ALL. DENIES PAIN AT REST AT THIS TIME. ABD SOFT, TENDER LLQ WITH PALPATION, BOWEL TONES ACTIVE X 4. pt DENIES NAUSEA. IV SITES FLUSHED WNL. IVF INFUSING ORDERED. CLEAR LIQUIDS IN REACH. CALL LIGHT IN REACH. pt PROVIDED WITH FAN FOR BEDSIDE, TEMPERATURE IN ROOM ADJUSTED.
--- NOTE | 2021-11-04 00:03 | NUR ---
pt RESTING IN BED. RATES PAIN 6/10 IN LLQ, DENIES NEED FOR PRN PAIN MEDICAITON. IV SITES FLUSHED WNL. IV POTASSIUM RIDER INFUSING ORDERED. CALL LIGHT IN REACH.
--- NOTE | 2021-11-04 01:06 | NUR ---
CALL LIGHT ANSWERED. pt RATES PAIN 8-9/10 IN ABDOMEN, RIGHT SIDE OF BACK. PRN PAIN MEDICATION ADMINISTERED. pt ALSO C/O NAUSEA. PRN NAUSEA MEDICATION ADMINISTERED. PRN ITCHING MEDICATION ADMINISTERED AT THIS TIME. NO EMESIS. IV POTASSIUM RIDERS INFUISNG WNL. BSC EMPTIED, LOOSE BM, BLOOD NOTED. pt DENIES DIZZINESS, WEAKNESS WHEN GETTING OUT OF BED.
--- NOTE | 2021-11-04 01:41 | NUR ---
CALL LIGHT ANSWERED. pt RESTING IN BED AWAKE WATCHING TV. COMPLAINS OF 9/10 PAIN. PRN PAIN MEDICATION ADMINISTERED. IVF INFUSING WNL. LIGHTS OFF IN ROOM.
--- NOTE | 2021-11-04 02:10 | NUR ---
IV POTASSIUM RIDER COMPLETE. IV IN RIGHT AC SL WNL. IVF INFUSING LEFT AC ORDERED. LIGHTS OFF IN ROOM. pt HAS NO C/O PAIN AT THIS TIME. CALL LIGHT IN REACH.
--- NOTE | 2021-11-04 03:55 | NUR ---
CHECKED ON pt. pt UP TO BSC FOR BM. DENIES NEEDS AT THIS TIME.
--- NOTE | 2021-11-04 06:00 | NUR ---
IN pt ROOM FOR MEDICATION ADMINISTRATION. pt UP TO BSC, INSTRUCTED TO USE CALL LIGHT WHEN FINISHED. VERBALIZES UNDERSTANDING.
--- NOTE | 2021-11-04 06:42 | NUR ---
IN pt ROOM FOR SCHEDULED MEDICATION ADMINISTRATION. NEW BAG IVF INFUSING WNL. ASSESSMENT COMPLETE. pt DENIES ANY PAIN. BOWEL TONES ACTIVE X 4, ABD SOFT, NONTENDER WITH PALPATION. pt HITTING ABDOMEN STATES "I COULDN'T DO THAT AT ALL BEFORE, I FEEL GREAT". CALL LIGHT IN REACH.
--- NOTE | 2021-11-04 07:42 | NUR ---
bedside report recieved from car whacker rn, pt awake and alert, on room air, ind in room, pain is better this morning, LR @125, on clear liquid diet, call light within reach no other needs at the moment.
--- NOTE | 2021-11-04 08:16 | NUR ---
PT AWAKE IN BED. UPDATED WHITE BOARD AND PROVIDED PT WITH WARM WASHCLOTH FOR FACE. CALL LIGHT WTIHIN REACH, NO FURTHER NEEDS AT THIS TIME.
--- NOTE | 2021-11-04 09:28 | NUR ---
RN IN ROOM TO DO MORNING MEDS, AND MORNING ASSESSMENT, PT AWAKE AND ALERT, DENIES PAIN AT THE MOMENT NO OTHER NEEDS
--- NOTE | 2021-11-04 12:10 | NUR ---
rn in room to give 1200 meds and deliver lunch pt denies pain at the moment.no other needs at the moment
--- NOTE | 2021-11-04 12:30 | NUR ---
Spoke with pt and he lives with his SO and 2 kids. Denies needs. C/o colitis with bm 30 x per day. does not use any DME. States he drives and works. Plans on dc to home when cleared medically. No financial issues.
--- NOTE | 2021-11-04 13:08 | NUR ---
MED REC COMPLETED BY PHARMACY
--- NOTE | 2021-11-04 13:25 | NUR ---
RN UPDATED PT AND FAMILY ON PLAN OF CARE NO CURRENT NEEDS AT THE MOMENT
--- NOTE | 2021-11-04 14:34 | NUR ---
RN IN ROOM TO ADJUST IV FLUIDS, PT AWAKE AND ALERT AND DENIES ANY PAIN AT THE MOMENT EXICTED HAVE A FULL LIQUID DIET, PUDDING GIVEN TO PT NO OTHER NEEDS
--- NOTE | 2021-11-04 15:34 | NUR ---
PT WATCHING TV IN BED AND JOKING AND LAUGHING WITH SAFETY AND HEALTH CONSULTANT. CALL LIGHT WITHIN REACH, NO FURTHER NEEDS AT THIS TIME.
--- NOTE | 2021-11-04 16:24 | NUR ---
RN IN ROOM TO ROUND ON PT, COMPLAINING OF BACK PAIN PRN TYLENOL GIVEN
--- NOTE | 2021-11-04 18:00 | NUR ---
RN IN ROOM TO DO VITAL SIGNS AND I&Os, PT TOLERATED DINNER PAIN IS UNDER CONTROLL NO OTHER NEEDS AT THE MOMENT
--- NOTE | 2021-11-04 19:20 | NUR ---
SHIFT REPORT RECEIVED FROM DAYSNMFT NONA CORDERO AT BEDSIDE. pt RESTING IN BED WITH EYES CLOSED, RR EVEN AND UNLABORED. IV FLUIDS INFUSING DIRECTED. CALL LIGHT IN REACH.
--- NOTE | 2021-11-04 21:36 | NUR ---
ASSESSMENT COMPLETE, SCHEDULED PO ABX GIVEN (SEE EMAR). pt FOUND AWAKE AND ON THE BSC. UNMEASURED VOID AND BM X1 NOTED. NO BLOOD NOTED WITH BM. WILL CONTINUE TO MONITOR. pt MARLO PAIN AND STATES, "THIS IS THE BEST I'VE FELT IN MONTHS". DENIES NAUSEA, SOME TENDERNESS REMAINS IN ABD, BUT STATES, "I DON'T WANNA SAY I COULD PUNCH IT, BUT IT DEFINITIELY FEELS A LOT BETTER. BEFORE I COULDN'T EVEN TOUCH IT". PRN VISTARIL GIVEN FOR GENERALIZED ITCHINESS. VSS, NO FURTHER NEEDS VERBALIZED. IV SITES X2 WNL. CALL LIGHT IN REACH, pt INDEPENDENT IN ROOM. FLUIDS INFUSING DIRECTED.
--- NOTE | 2021-11-04 22:51 | NUR ---
CALL LIGHT ANSWERED, pt FOUND AWAKE AND PACING IN ROOM-MINDFUL OF IV POLE. pt REPORTS INABILITY TO SLEEP, REPORTS TAKING VISTARIL 50MG TABLETS-ONE TAB IN MORNING, ONE TAB IN AFTERNOON, AND THREE TABS AT BEDTIME. pt STATES, "I KNOW IT ONLY SAYS TWO AT BED, BUT I'VE BEEN TAKING THREE FOR THE LAST 8 YEARS". pt REPORTS SEEING HALLUCINATIONS SUCH "FOG PASSING THE BED" AND REPORTS SEEING THE BED GOING UP AND DOWN WHILE HE WAS ON THE BSC. pt REPORTS HE HASN'T SLEPT WELL AND VERBALIZES DESIRE FOR ADDITIONAL VISTARIL, STATING, "I NEED TO GET SOME SLEEP OR ELSE IT'S GONNA START AFFECTING OTHER PARTS OF MY HEALTH". DR GEORGES ON PHONE AND GIVEN ALL INFORMATION ABOVE, TELEPHONE ORDERS READ BACK TO GIVE ADDITIONAL 50MG PO VISTARIL NOW. TELEPHONE ORDERS READ BACK STATING pt CAN HAVE TOTAL OF 100MG PO VISTARIL HS PRN FOR INSOMNIA AND 6MG PO MELATONIN HS PRN FOR INSOMNIA. INSTRUCTIONAL SERVICES SPECIALISTNONA JULIO TO PUT ORDERS IN EMAR. PER DR GEORGES, OKAY TO KEEP CURRENT PRN VISTARIL Q6H ACTIVE.
--- NOTE | 2021-11-04 23:15 | NUR ---
PT CALL LIGHT ON, PT PASING IN RM, PT STATES HE NEEDS SOME SLEEP, RN IS ON THE WAY, PT INFORMED OF RN'S STATUS, PT ANXOUS BUT UNDERSTANDING
--- NOTE | 2021-11-04 23:26 | NUR ---
PT PRIMARY RN CONTACTED DR GEORGES ABOUT PT REQUESTING ADDITIONAL VISTARIL, WELL MELATONIN. ORDER RECEIVED, MAY HAVE ADDITIONAL 50 MG VISTARIL AT BEDTIME, PRN, WELL 50 MG VISTERIL PRN q 6 HOURS.
--- NOTE | 2021-11-04 23:30 | NUR ---
IN ROOM TO GIVE ADDITIONAL 50MG PO VISTARIL WELL 6MG MELATONIN. pt CONTINUES TO PACE IN ROOM, NO FURTHER NEEDS. pt RESPECTFUL, INDEPENDENT IN ROOM. CALL LIGHT IN REACH.
--- NOTE | 2021-11-05 00:42 | NUR ---
pt RESTING IN BED, RR EVEN AND UNLABORED. pt APPEARS TO BE SLEEPING. NO DISTRESS NOTED, pt LOOKS COMFORTABLE AND RELAXED AT THIS TIME. WILL CONTINUE TO MONITOR. CALL LIGHT IN REACH, pt INDEPENDENT IN ROOM.
--- NOTE | 2021-11-05 02:23 | NUR ---
CALL LIGHT ANSWERED, NEW BAG IV FLUIDS HUNG AND INFUSING DIRECTED. IV SITE WNL. BSC EMPTIED, UNMEASURED VOID AND BM NOTED. pt EDUCATED TO USE URINAL WITH VOIDING TO ACCURATELY DOCUMENT UO, pt VERBALIZED UNDERSTANDING. ASSESSMENT COMPLETE, NO ACUTE CHANGES. CALL LIGHT IN REACH.
--- NOTE | 2021-11-05 05:33 | NUR ---
pt AWAKE AND RESTING IN BED, DENIES NEEDS OR CONCERNS AND REPORTS HE "SLEPT GOOD". NO FURTHER NEEDS, CALL LIGHT IN REACH. pt INDEPENDNENT IN ROOM.
--- NOTE | 2021-11-05 06:22 | NUR ---
vs and i&o's complete. scheduled thyroid medication given, see emar. bsc emptied. iv plump cleared, iv site wnl, fluids infusing as directed. fresh water provided, no further needs. call light in reach.
--- NOTE | 2021-11-05 07:30 | NUR ---
report recieved from fast food shift lead RN, pt awake and alert resting in bed no needs at the moment
--- NOTE | 2021-11-05 09:18 | NUR ---
RN IN ROOM TO DO MORNING ASSESSMENT AND MEDICATIONS, DENIES ANY NEEDS AT THE MOMENT TOLERATED BREAKFAST NO OTHER NEEDS AT THE MOMENT
--- NOTE | 2021-11-05 11:30 | NUR ---
Feeling better, less pain. less bms.
--- NOTE | 2021-11-05 12:00 | NUR ---
rn in room to administer medications, diet upgraded, no other concerns at the moment
--- NOTE | 2021-11-05 14:32 | NUR ---
RN in room to hang new iv bag, pt able to tolerate low fat diet, denies any pain
--- NOTE | 2021-11-05 17:35 | NUR ---
RN IN ROOM TO GIVE MEDS, VITAL SIGNS DONE AND i&o PT RESTING IN BED DENIES ANY NEEDS
--- NOTE | 2021-11-05 19:10 | NUR ---
SHIFT REPORT RECEIVED FROM DAYSHIFT NONA CORDERO. pt AWAKE AND IN BATHROOM, DENIES NEEDS OR CONCERNS. pt INDEPENDENT IN ROOM.
--- NOTE | 2021-11-05 20:02 | NUR ---
IN TO GET VITALS, I&Os DONE, NO FURTHER NEEDS
--- NOTE | 2021-11-05 20:26 | NUR ---
ASSESSMENT COMPLETE, SCHEDULED MEDICATION GIVEN ALONG WITH PRN MELATONIN. pt A/OX4, VSS. pt DENEIS PAIN AND NAUSEA, REPORTS PASSING GAS. BOWEL TONES ACTIVE. IV FLUIDS INFUSING DIRECTED, IV SITE X2 WNL. CMS INTACT, pt DENEIS FURTHER NEEDS. CALL LIGHT IN REACH.
--- NOTE | 2021-11-05 23:28 | NUR ---
pt RESTING IN BED, FACING WINDOW. RR EVEN AND UNLABORED, NO DISTRESS NOTED. WILL CONTINUE TO MONITOR, pt ALLOWED TO CONITNUE TO REST. CALL LIGHT IN REACH.
--- NOTE | 2021-11-06 01:04 | NUR ---
pt RESTING IN BED, AWOKE TO VOICE. IV SITE WNL, FLUIDS INFUSING DIRECTED. NO FURTHER NEEDS, CALL LIGHT IN REACH. pt INDEPENDENT IN ROOM.
--- NOTE | 2021-11-06 03:16 | NUR ---
ASSESSMENT COMPLETE, NO ACUE CHANGES. pt REPORTS RECENT BM, LOOSE BUT MORE FORMED COMPARED TO RECENT BM'S. WILL MONITOR. NO FURTHER NEEDS, CALL LIGHT IN REACH.
--- NOTE | 2021-11-06 05:39 | NUR ---
VSS AND I&O'S COMPLETE. FRESH WATER PROVIDED. SCHEDULED THYROID GIVEN, SEE EMAR. IV PUMP CLEARED, IV SITE WNL. FLUIDS INFUSING DIRECTED. NO FURTHER NEEDS, CALL LIGHT IN REACH. pt REPORTS HE HAD A VERY GOOD NIGHT AND SLEPT "VERY WELL".
--- NOTE | 2021-11-06 07:30 | NUR ---
report recieved from shift supervisor RN pt resting in bed, awake and alert denies any needs at the moment call light within reach
--- NOTE | 2021-11-06 09:00 | NUR ---
RN in room to do morning assessment and medications pt denies any needs at the moment tolerating diet
[2021-11-06] MEDS ORDERED: CIPROFLOXACIN500 MG PO (09:05)
[2021-11-06] MEDS ORDERED: METRONIDAZOLE250 MG PO (09:06)
[2021-11-06] MEDS ORDERED: PREDNISONE20 MG PO (09:07)
--- NOTE | 2021-11-06 10:34 | NUR ---
RN IN ROOM DO TO OVER DISCHARGE INSTRUCTIONS, PT VERBALIZED UNDERSTANDING AND HAS NO QUESTIONS, IVS REMOVED AND DRESSING APPLIED
== END 2021-11-06 10:34 | disposition home or self-care (01) | DRG 386 ==
LOC: ED 17:15 → MS 20:46
PROVIDERS: ADMIT Student in an Organized Health Care Education/Training Program; ATTEND Student in an Organized Health Care Education/Training Program
DX: K51.90 Ulcerative colitis, unspecified, without complications (principal); N17.9 Acute kidney failure, unspecified; Z20.822 Contact with and (suspected) exposure to COVID-19; E03.9 Hypothyroidism, unspecified; F17.210 Nicotine dependence, cigarettes, uncomplicated; Z87.442 Personal history of urinary calculi; Z98.890 Other specified postprocedural states; Z88.8 Allergy status to other drugs, medicaments and biological substances; Z79.899 Other long term (current) drug therapy
CPT/HCPCS: 74177; 80048; 80053; 83690; 83735; 85025; 87045; 87493; 96375; 99285-25; C9803; J0744; J1170; J2405; J2920; J2930; J3480; J7030; J7121; Q9967; U0003

== ENCOUNTER 2022-03-01 09:55 | Day surgery (SDC) | payer MEDICARE, OTHER ==
[~2022-03-01] VITALS: Ht 167.6 cm; Wt 77.2 kg
[~2022-03-01 09:55] MED LIST changes: +CIPROFLOXACIN500 MG PO; +FERROUS GLUCON324 M2 PO; +LEVOFLOXACIN500 MG PO; +LEVOTHYROXINE150 MC1 PO; +MESALAMINE DR400 MG PO; +MESALAMINE1000 MG PR; +MESALAMINE4 GM/60 ML PR; +METRONIDAZOLE250 MG PO; +PREDNISONE20 MG PO; +VITAMIN C500 M1 PO
--- NOTE | 2022-03-01 10:35 | NUR ---
PT swabbed for COVID 19. No complication noted.
--- NOTE | 2022-03-01 14:08 | NUR ---
03/01/22 1408 Elke Camacho 1343 PT ARRIVED IN PACU NON RESPONSIVE TO NOXIOUS STIMULI WITH OPA IN PLACE. CHIN LIFT HELD. 1406 PT REACTIVE. OPA REMOVED.
--- NOTE | 2022-03-01 14:20 | NUR ---
PATIENT BACK TO ROOM FROM PACU ON RA. RECEIVED REPORT FROM AMITA CASTELLANO. PATIENT LAYING IN BED WITH EYES CLOSED. ANSWERES QUESTIONS. DENIES PAIN AND NAUSEA. NO DRAINAGE ON ABD PAD. PARTNER AT BEDSIDE. CALL LIGHT WITHIN REACH. PATIENT TAKING SIPS OF WATER AND EATING APPLESAUSE.
--- NOTE | 2022-03-01 15:25 | NUR ---
PATIENT DENIES PAIN AND NAUSEA. SMALL AMOUNT OF DRAINAGE ON ABD PAD. PATIENT IS READY TO GO HOME. PATEINT GETTING DRESSED.
--- NOTE | 2022-03-01 15:30 | NUR ---
PROVIDED PATIENT AND PARTNER WITH DISCHARGE INSTRUCTIONS. ALL QUESTIONS ANSWERED. PATIENT AMBULATES TO WHEELCHAIR AND RIDE PROVIDED TO FRONT OF HOSPITAL WHERE PARTNER WAS WAITING WITH THE CAR.
== END 2022-03-01 15:30 | disposition home or self-care (01) ==
LOC: DS 09:55 → EDSTATUS 12:35 → US 13:00 → DS 15:30
PROVIDERS: ATTEND Urology
PROC: 0VB03ZX Excision of Prostate, Percutaneous Approach, Diagnostic (ICD-10-PCS; principal; 2022-03-01 12:35)
DX: C61 Malignant neoplasm of prostate (principal); N40.0 Benign prostatic hyperplasia without lower urinary tract symptoms; Z88.6 Allergy status to analgesic agent; Z20.822 Contact with and (suspected) exposure to COVID-19
CPT/HCPCS: 76942; 87502; C9803; J0690; J1100; J1720; J1885; J2001; J2250; J2405; J2704; J2765; J3010; J7121; U0003

== ENCOUNTER 2023-01-12 06:25 | Day surgery (SDC) | payer MEDICARE, OTHER ==
[~2023-01-12] VITALS: Ht 167.6 cm; Wt 78.6 kg
[~2023-01-12 06:25] MED LIST changes: +BUDESONIDE ER9 MG PO; +LEVOTHYROXINE150 MCG PO
[2023-01-12] MEDS ORDERED: HYDROCODON-ACE1 EA10 PO (06:42)
[2023-01-12] MEDS ORDERED: CIPROFLOXACIN500 MG PO (06:42)
[2023-01-12] MEDS ORDERED: LORAZEPAM1 MG PO (06:42)
--- NOTE | 2023-01-12 09:03 | NUR ---
01/12/23 0903 Indria Ocampo 5168-PATIENT ARRIVED TO PACU ON 10L MASK NONAROUSABLE ORAL AIRWAY IN PLACE. RN DOING JAW THRUST TO MAINTAIN OPEN AIRWAY. PLACED ON 6L MASK 100% SB HEART RHYTHM. IVF INFUSING.
--- NOTE | 2023-01-12 10:33 | NUR ---
PT ALERT, ORIENTED AND SUPPORTED BY HIS DANIEL SMITH. 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 PT EXPRESSED CONFIDENCE IN DR CAMPO AND [facility] STAFF. DANIEL SMITH WILL REMAIN UNTIL DC. PRAYER OFFERED FOR PT AND FAMILY. PAGER PROVIDED, BLESSING GIVEN.
--- NOTE | 2023-01-12 11:01 | NUR ---
LE 1050: PT IS BACK TO DS FROM PACU. GIRLFRIEND IS AT THE BEDSIDE. HE IS SLOWLY STARTING TO WAKE UP. HE IS REQUESTING VANILLA PUDDING. HE IS TOLERATING SIPS OF WATER FROM PACU. CALL LIGHT IS WITHIN REACH. NO ADDITIONAL NEEDS OR CONCERNS. DC CRITERIA IS REVIEWED WITH GIRLFRIEND.
--- NOTE | 2023-01-12 12:02 | NUR ---
PT IS TOLERATING PUDDING AND WATER. STILL VERY SLEEPY. NO COMPLAINTS OF PAIN. GIRLFRIEND AT THE BEDSIDE. DENIES THE NEED TO VOID AT THIS TIME.
--- NOTE | 2023-01-12 12:15 | NUR ---
DELGADO 1205: PT TURNS ON HIS CALL LIGHT TO USE THE RESTROOM. USING STANDBY ASSIST, HE WALKS TO THE BATHROOM WHERE HE IS ONLY ABLE TO VOID 50MLS OF DARK YELLOW URINE. HE IS RECONNECTED TO [facility], WIDE OPEN. HE IS ORDERED A SANDWICH AND GIVEN A WARM BLANKET. HE IS EDUCATED HE NEEDS TO VOID MORE THAN HE DID.
--- NOTE | 2023-01-12 13:21 | NUR ---
PT IS TOLERATING WATER AND FOOD. HE HAS ONLY BEEN ABLE TO VOID A TOTAL OF 75CCS AT THIS TIME. NO ADDITIONAL NEEDS OR CONCERNS AT THIS TIME.
--- NOTE | 2023-01-12 13:45 | NUR ---
PT IS UP TO THE BATHROOM, WHERE HE VOIDS 100CCS OF PALE YELLOW URINE. HE HAS MET ALL DC CRITERIA AT THIS TIME. HE INDICIATES THAT HE WOULD LIKE TO GO HOME AT THIS TIME. HE IS GIVEN VERBAL AND WRITTEN DC INSTRUCTIONS, HE VERBALIZES UNDERSTANDING AT THIS TIME. HE DRESSES HIMESELF WITHOUT ISSUES. HE IS TAKEN TO PERSONAL VEHICLE VIA , WHERE HE TRANSFERS HIMSELF WITHOUT ISSUES.
== END 2023-01-12 13:45 | disposition home or self-care (01) ==
LOC: DS 06:25
PROVIDERS: ATTEND Radiology Radiation Oncology
DX: C61 Malignant neoplasm of prostate (principal)
CPT/HCPCS: 00902; J1100; J1885; J2250; J2405; J2704; J2765; J3010; J7121

== ENCOUNTER 2023-01-15 05:59 | Emergency (ER) | payer MEDICARE, OTHER ==
[~2023-01-15] VITALS: Ht 167.6 cm; Wt 78.6 kg
[~2023-01-15 05:59] MED LIST changes: +LORAZEPAM1 MG PO
--- OUTSIDE RECORDS SUMMARY | 2023-01-15 06:00 | XMS ---
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 - Patient with suicidal and/or homicidal ideations eloped. - Patient eloped with IV in place. Details: PATIENT LWBS CRITERIA MET - [facility] - Has Care Guidelines - [facility] CARE PROVIDERS -Nadia- Dentist: Ux Design Lead [facility] PHONE: [phone] [place] [facility] PHONE: Unknown GENESIS SHULTZ Family Medicine 04/23/2021-[facility] PHONE: Unknown Chloe has no Care Guidelines for this patient. Care History Medical/Surgical 09/22/2021 [facility] Patient went to Walk [facility] Clinic on Tuesday09/20/2021 as directed, but Clinic was closed so he went to ER. I requested he get a follow up visit with Dr. Shultz. 09/13/2021 [facility] Transferred patient call to manager wind for ED follow up visit with Dr. Shultz. Patient stated Dr. Lanza gave him an ointment to try, but if it doesn't work he will get back to Dr. Lanza. Patient is frustrated that nobody can determine what the internal problem so it is still a problem. 04/23/2021 [facility] - Patient is currently established with [facility]. If patient is seen in the ED during business hours. Please contact CHWs at [facility]. Care Recommendation: If this patient has [...] care. E.D. VISIT COUNT (12 MO.) 3 [facility]. TOTAL 3 NOTE: Visits indicate total known visits. ED/UCC VISIT TRACKING (12 MO.) 01/15/2023 05:59 [facility] [place] TYPE: Emergency COMPLAINT: - SEVERE LT FLANK PAIN 07/06/2022 11:42 [facility] [place] TYPE: Emergency COMPLAINT: - R THUMB, R RIBCAGE INJURY 03/26/2022 09:12 [facility] [place] TYPE: Emergency COMPLAINT: - BACK PAIN INPATIENT VISIT TRACKING (12 MO.) No inpatient visits to display in this time frame [id number]
[2023-01-15] MEDS ORDERED: ONDANSETRON ODT8 MG PO (07:45)
[2023-01-15] MEDS ORDERED: FLOMAX0.4 MG PO (07:45)
[2023-01-15] MEDS ORDERED: HYDROCODON-ACE1 EA11 PO (07:45)
== END 2023-01-15 10:48 | disposition home or self-care (01) ==
LOC: ED 05:59
DX: N13.2 Hydronephrosis with renal and ureteral calculous obstruction (principal); F17.200 Nicotine dependence, unspecified, uncomplicated; Z87.442 Personal history of urinary calculi; Z88.8 Allergy status to other drugs, medicaments and biological substances; Z79.899 Other long term (current) drug therapy; Z85.46 Personal history of malignant neoplasm of prostate
CPT/HCPCS: 36415; 74176; 80053; 81001; 83690; 85025; 96374; 96375; 96376; 99284-25; A9270; J1170; J1885; J2405; J7030

== ENCOUNTER 2023-11-04 11:47 | Emergency (ER) | payer MEDICARE, OTHER ==
[~2023-11-04] VITALS: Ht 167.6 cm; Wt 69.7 kg
[~2023-11-04 11:47] MED LIST changes: +ENTYVIO300 MG IV
[2023-11-04] MEDS ORDERED: POTASSIUM CHLO10 MEQ PO (12:01)
[2023-11-04] MEDS ORDERED: LEVOTHYROXINE175 MCG PO (12:01)
[2023-11-04 12:34] LABS: BILIRUBIN, URINE NEGATIVE (negative); BLOOD/HGB, URINE NEGATIVE (Negative); KETONE, URINE NEGATIVE (Negative); LEUK ESTERASE, URINE NEGATIVE (negative); NITRITE, URINE NEGATIVE (negative)
[2023-11-04 12:34] LABS: BASOPHILS 0.8 % (0-2); EOSINOPHILS 10.1 % (0-6); HEMATOCRIT 47.5 % (35.0-50.0); LYMPHOCYTES 25.9 % (24-44); MCH 31.7 (27-36); MCHC 33.6 g/dl (30-36); MCV 94.4 fl (81-99); MONOCYTES 9.4 % (0-12); NEUTROPHILS 53.8 % (39-80); PLATELET COUNT 293 K/uL (140-440); RBC 5.04 M/ul (4.3-5.7)
[2023-11-04 12:51] LABS: ALBUMIN 3.9 g/dL (3.4-5.0); ALBUMIN/GLOBULIN RATIO 1.05 (1.1-2.4); ANION GAP 9.2 (7-21); BILIRUBIN, TOTAL 0.5 ng/dL (0.2-1.0); BUN/CREATININE RATIO 25.45 (6.0-28.6); CALCIUM 9.2 mg/dL (8.5-10.1); CREATININE, SERUM 1.1 mg/dL (0.70-1.30); POTASSIUM 4.2 mmol/L (3.5-5.1); PROTEIN, TOTAL 7.6 g/dL (6.4-8.2)
[2023-11-04] MEDS ORDERED: PREDNISONE20 MG PO (15:14)
[2023-11-04] MEDS ORDERED: HYDROCODON-ACE1 EA10 PO (15:14)
[2023-11-04 15:38] VITALS: BP 111/70
== END 2023-11-04 15:39 | disposition home or self-care (01) ==
LOC: ED 11:47
PROVIDERS: Emergency Medicine
DX: K51.90 Ulcerative colitis, unspecified, without complications (principal); R74.8 Abnormal levels of other serum enzymes; F17.200 Nicotine dependence, unspecified, uncomplicated; Z88.8 Allergy status to other drugs, medicaments and biological substances; Z79.890 Hormone replacement therapy; Z79.899 Other long term (current) drug therapy
CPT/HCPCS: 36415; 51701; 74177; 80053; 81003; 83690; 85025; 99284-25; J2270; J2405; J7030; Q9967

== ENCOUNTER 2023-11-21 03:58 | Emergency (ER) | payer MEDICARE, OTHER ==
[~2023-11-21] VITALS: Ht 167.6 cm; Wt 71.7 kg
[~2023-11-21 03:58] MED LIST changes: +POTASSIUM CHLO10 MEQ PO
[2023-11-21] MEDS ORDERED: ADULT GLYCERIN1 EACH PR (04:07)
[2023-11-21] MEDS ORDERED: DICLOFENAC SODI75 MG PO (04:08)
[2023-11-21] MEDS ORDERED: HYDROXYZINE PAM50 MG PO (04:08)
[2023-11-21 04:33] LABS: BASOPHILS 0.8 % (0-2); EOSINOPHILS 4.1 % (0-6); HEMATOCRIT 44.9 % (35.0-50.0); HEMOGLOBIN 14.9 g/dL (12.0-18.0); LYMPHOCYTES 17.1 % (24-44); MCH 31.7 (27-36); MCHC 33.2 g/dl (30-36); MCV 95.5 fl (81-99); MONOCYTES 12.1 % (0-12); NEUTROPHILS 65.9 % (39-80); PLATELET COUNT 246 K/uL (140-440); RBC 4.71 M/ul (4.3-5.7); RDW 14.7 (10.5-15.0)
[2023-11-21 04:43] LABS: INR 1.02 (0.80-1.30); PROTIME 12.7 Sec (11.2-14.2)
[2023-11-21 04:47] LABS: ALBUMIN 3.2 g/dL (3.4-5.0); ALBUMIN/GLOBULIN RATIO 0.94 (1.1-2.4); ANION GAP 15.7 (7-21); BILIRUBIN, TOTAL 0.5 ng/dL (0.2-1.0); CALCIUM 8.1 mg/dL (8.5-10.1); POTASSIUM 4.7 mmol/L (3.5-5.1); PROTEIN, TOTAL 6.6 g/dL (6.4-8.2)
[2023-11-21 05:08] LABS: ABO A
[2023-11-21 05:09] LABS: ANTIBODY SCREEN NEGATIVE; RH POSITIVE
[2023-11-21] MEDS ORDERED: PREDNISONE10 MG PO (05:11)
[2023-11-21] MEDS ORDERED: HYDROCODON-ACE1 EA10 PO (05:12)
[2023-11-21] MEDS ORDERED: OMEPRAZOLE20 MG PO (05:21)
[2023-11-21 05:53] LABS: BILIRUBIN, URINE NEGATIVE (negative); BLOOD/HGB, URINE NEGATIVE (Negative); KETONE, URINE NEGATIVE (Negative); LEUK ESTERASE, URINE NEGATIVE (negative); NITRITE, URINE NEGATIVE (negative); PH, URINE 5.5 (5-7)
[2023-11-21 06:14] VITALS: BP 119/86
== END 2023-11-21 06:20 | disposition home or self-care (01) ==
LOC: ED 03:58
PROVIDERS: Internal Medicine
DX: K51.90 Ulcerative colitis, unspecified, without complications (principal); F17.200 Nicotine dependence, unspecified, uncomplicated; Z79.890 Hormone replacement therapy; Z79.899 Other long term (current) drug therapy
CPT/HCPCS: 36415; 80053; 81003; 83690; 85025; 85610; 85730; 86850; 86900; 86901; 96361; 96374; 96375; 96376; 99284-25; C9113; J1170; J2405; J2930; J7121

== ENCOUNTER 2023-12-17 16:27 | Emergency (ER) | payer MEDICARE, OTHER ==
[~2023-12-17] VITALS: Ht 167.6 cm; Wt 69.8 kg
[~2023-12-17 16:27] MED LIST changes: +ADULT GLYCERIN1 EACH PR; +DICLOFENAC SODI75 MG PO; +OMEPRAZOLE20 MG PO; +PREDNISONE10 MG PO
[2023-12-17 17:20] LABS: INFLUENZA B NAA NEGATIVE (NEGATIVE); RESPIRATORY SYNCYTIAL VIR NAA NEGATIVE (NEGATIVE)
[2023-12-17] MEDS ORDERED: VISTARIL25 MG PO (18:11)
[2023-12-17] MEDS ORDERED: PAXLOVID 300-11 EAC1 PO (19:22)
[2023-12-17] MEDS ORDERED: LOMOTIL TABLET1 EACH PO (19:22)
[2023-12-17] MEDS ORDERED: ONDANSETRON ODT8 MG PO (19:22)
[2023-12-17] MEDS ORDERED: ONDANSETRON 4 MG HOME.PACK SL ONE (19:30)
[2023-12-17] MEDS ORDERED: DIPHENOXYLATE/ATROPINE 1 EA TAB PO ONE (19:30)
[2023-12-17] MEDS ORDERED: ONDANSETRON 4 MG TAB ODT SL ONE (19:30)
[2023-12-17 19:39] VITALS: BP 103/79
== END 2023-12-17 19:39 | disposition home or self-care (01) ==
LOC: ED 16:27
PROVIDERS: Emergency Medicine
DX: U07.1 COVID-19 (principal); F17.200 Nicotine dependence, unspecified, uncomplicated; Z79.899 Other long term (current) drug therapy
CPT/HCPCS: 87502; A9270; U0002

== ENCOUNTER 2024-05-08 07:38 | Emergency (ER) | payer MEDICARE, OTHER ==
[~2024-05-08] VITALS: Ht 167.6 cm; Wt 74.3 kg
[~2024-05-08 07:38] MED LIST changes: +LOMOTIL TABLET1 EACH PO; +PAXLOVID 300-11 EAC1 PO
[2024-05-08] MEDS ORDERED: ondansetron HCL 4 MG/2 ML VIAL IV ONE (07:45)
[2024-05-08] MEDS ORDERED: SODIUM CHLORIDE 0.9% 1,000 ML IV ONE ×2 (07:45→09:00)
[2024-05-08] MEDS ORDERED: HYDROmorphone HCL 1 MG/ML SYR IV PRN ×2 (07:45→10:00)
[2024-05-08 08:14] LABS: HEMATOCRIT 29.6 % (35.0-50.0); MCH 31.9 (27-36); MCHC 33.9 g/dl (30-36); MCV 94.3 fl (81-99); PLATELET COUNT 264 K/uL (140-440); RBC 3.13 M/ul (4.3-5.7); RDW 14.2 (10.5-15.0)
[2024-05-08] MEDS ORDERED: methylPREDNISolone SOD SUCC 125 MG/2 ML VIAL IV ONE (08:15)
[2024-05-08 08:19] LABS: CHLORIDE 116 mmol/L (98-107)
[2024-05-08 08:37] LABS: ALBUMIN 1.4 g/dL (3.4-5.0); ALBUMIN/GLOBULIN RATIO 0.67 (1.1-2.4); ALKALINE PHOSPHATASE 37 U/L (46-116); ALT (SGPT) 10 U/L (14-59); AST (SGOT) 8 U/L (15-37); BILIRUBIN, TOTAL 0.2 ng/dL (0.2-1.0); BUN/CREATININE RATIO 17.54 (6.0-28.6); CREATININE, SERUM 0.57 mg/dL (0.70-1.30); GLOMERULAR FILTRATION RATE,EST 115 mL/min (>60); PROTEIN, TOTAL 3.5 g/dL (6.4-8.2); UREA NITROGEN 10 mg/dL (7-18)
[2024-05-08 08:51] LABS: BANDS, MANUAL DIFF 7; BASOPHILS, MANUAL DIFF 0; EOSINOPHILS, MANUAL DIFF 3; LYMPHOCYTES, MANUAL DIFF 20; MONOCYTES, MANUAL DIFF 4; NEUTROPHILS, MANUAL DIFF 66
[2024-05-08 08:52] LABS: ANION GAP 12.9 (7-21); CARBON DIOXIDE 17 mmol/L (21-32)
[2024-05-08 08:54] LABS: CALCIUM <5.0 mg/dL (8.5-10.1); POTASSIUM 1.9 mmol/L (3.5-5.1)
[2024-05-08 08:55] LABS: BILIRUBIN, URINE POSITIVE (negative); BLOOD/HGB, URINE SMALL (Negative); KETONE, URINE SMALL (Negative); LEUK ESTERASE, URINE NEGATIVE (negative); NITRITE, URINE NEGATIVE (negative)
[2024-05-08] MEDS ORDERED: POTASSIUM CHLORIDE 10 MEQ/100 ML BAG IV ONE (09:00)
[2024-05-08] MEDS ORDERED: POTASSIUM CHLORIDE 10 MEQ TABCR PO ONE (09:00)
[2024-05-08 09:09] LABS: BACTERIA, URINE RARE /hpf (negative); CASTS, URINE NONE SEEN \\lpf; COLLECTION TYPE, URINE CLEAN CATCH; CRYSTALS, URINE NONE SEEN (0-1+); EPITHELIAL CELLS, URINE SQUAMOUS 1+ /lpf (0-1+); REFLEX CULTURE, URINE No (No)
[2024-05-08 09:41] LABS: BASOPHILS 0.4 % (0-2); HEMATOCRIT 40.1 % (35.0-50.0); HEMOGLOBIN 13.3 g/dL (12.0-18.0); LYMPHOCYTES 9.7 % (24-44); MCH 31.2 (27-36); MCV 94.6 fl (81-99); MONOCYTES 7.5 % (0-12); NEUTROPHILS 81.4 % (39-80); PLATELET COUNT 355 K/uL (140-440); RBC 4.24 M/ul (4.3-5.7); RDW 14.2 (10.5-15.0)
[2024-05-08] MEDS ORDERED: PANTOPRAZOLE SODIUM 40 MG/10 ML VIAL IV SCH (09:54)
[2024-05-08] MEDS ORDERED: PROCHLORPERAZINE EDISYLATE 10 MG/2 ML VIAL IV PRN (10:00)
[2024-05-08] MEDS ORDERED: SODIUM CHLORIDE 0.9% 1,000 ML IV SCH (10:00)
[2024-05-08] MEDS ORDERED: ondansetron HCL 4 MG/2 ML VIAL IV PRN (10:00)
[2024-05-08 10:20] LABS: ALBUMIN 2.6 g/dL (3.4-5.0); ALBUMIN/GLOBULIN RATIO 0.9 (1.1-2.4); BILIRUBIN, TOTAL 0.5 ng/dL (0.2-1.0); BUN/CREATININE RATIO 18.39 (6.0-28.6); CALCIUM 7.5 mg/dL (8.5-10.1); CREATININE, SERUM 0.87 mg/dL (0.70-1.30); MAGNESIUM 1.9 mg/dL (1.8-2.4); PROTEIN, TOTAL 5.5 g/dL (6.4-8.2)
[2024-05-08] MEDS ORDERED: PREDNISONE20 MG PO (10:33)
[2024-05-08 10:50] VITALS: BP 125/78
[2024-05-08] MEDS ORDERED: PHARMACY RENAL DOSE ADJUSTMENT 1 DOSE MISC PO SCH (12:00)
== END 2024-05-08 10:54 | disposition home or self-care (01) ==
LOC: ED 07:38 → CCU 10:01 → ED 10:01
PROVIDERS: Emergency Medicine
DX: K51.90 Ulcerative colitis, unspecified, without complications (principal); K92.2 Gastrointestinal hemorrhage, unspecified; N20.1 Calculus of ureter; F17.200 Nicotine dependence, unspecified, uncomplicated; Z79.899 Other long term (current) drug therapy; Z79.890 Hormone replacement therapy
CPT/HCPCS: 36415; 74177; 80053; 81001; 83690; 83735; 84100; 85025; 86850; 86900; 86901; 96361; 96375; 99285-25; A9270; J1170; J2405; J2470; J2919; J3480; J7030; Q9967

== ENCOUNTER 2024-05-24 05:37 | Emergency (ER) | payer MEDICARE, OTHER ==
[~2024-05-24] VITALS: Ht 167.6 cm; Wt 70.0 kg
[2024-05-24] MEDS ORDERED: SODIUM CHLORIDE 0.9% 1,000 ML IV ONE (05:45)
[2024-05-24] MEDS ORDERED: HYDROmorphone HCL 1 MG/ML SYR IV ONE ×2 (05:45→06:15)
[2024-05-24] MEDS ORDERED: ondansetron HCL 4 MG/2 ML VIAL IV ONE (05:45)
[2024-05-24] MEDS ORDERED: MESALAMINE DR400 MG PO (05:45)
[2024-05-24 05:50] LABS: HEMOGLOBIN 13.5 g/dL (12.0-18.0)
[2024-05-24 05:53] LABS: BASOPHILS 1.1 % (0-2); EOSINOPHILS 1.4 % (0-6); HEMATOCRIT 40.9 % (35.0-50.0); LYMPHOCYTES 38.7 % (24-44); MCH 32.4 (27-36); MCV 98.2 fl (81-99); MONOCYTES 12.1 % (0-12); NEUTROPHILS 46.7 % (39-80); PLATELET COUNT 362 K/uL (140-440); RBC 4.17 M/ul (4.3-5.7); RDW 15.2 (10.5-15.0)
[2024-05-24 06:06] LABS: ALBUMIN 3.2 g/dL (3.4-5.0); ALBUMIN/GLOBULIN RATIO 0.97 (1.1-2.4); ANION GAP 11.4 (7-21); BILIRUBIN, TOTAL 0.8 ng/dL (0.2-1.0); BUN/CREATININE RATIO 18.75 (6.0-28.6); CALCIUM 8.2 mg/dL (8.5-10.1); CREATININE, SERUM 0.96 mg/dL (0.70-1.30); POTASSIUM 4.4 mmol/L (3.5-5.1); PROTEIN, TOTAL 6.5 g/dL (6.4-8.2)
[2024-05-24] MEDS ORDERED: KETOROLAC TROMETHAMINE 30 MG/ML VIAL IV ONE (06:15)
[2024-05-24] MEDS ORDERED: FLOMAX0.4 MG PO (06:48)
[2024-05-24] MEDS ORDERED: PERCOCET 5-3251 EACH PO (06:48)
[2024-05-24] MEDS ORDERED: TAMSULOSIN HCL 0.4 MG CAP PO ONE (07:00)
[2024-05-24] MEDS ORDERED: ONDANSETRON 4 MG HOME.PACK SL ONE (07:00)
[2024-05-24] MEDS ORDERED: OXYCODONE/ACETAMINOPHEN 1 TAB HOME.PACK PO ONE (07:00)
[2024-05-24 07:25] VITALS: BP 115/87
[2024-05-25] MEDS ORDERED: PROMETHEGAN25 MG PR (03:58)
== END 2024-05-24 07:26 | disposition home or self-care (01) ==
LOC: ED 05:37
PROVIDERS: Family Medicine
DX: N13.2 Hydronephrosis with renal and ureteral calculous obstruction (principal); F17.200 Nicotine dependence, unspecified, uncomplicated; Z79.899 Other long term (current) drug therapy
CPT/HCPCS: 36415; 74176; 80053; 83690; 85025; 96374; 96375; 99284-25; A9270; J1170; J1885; J2405; J7030

== ENCOUNTER 2024-05-25 02:50 | Emergency (ER) | payer MEDICARE, OTHER ==
[~2024-05-25] VITALS: Ht 167.6 cm; Wt 68.0 kg
[~2024-05-25 02:50] MED LIST changes: +PERCOCET 5-3251 EACH PO
[2024-05-25 03:15] LABS: HEMOGLOBIN 12.7 g/dL (12.0-18.0)
[2024-05-25] MEDS ORDERED: ondansetron HCL 4 MG/2 ML VIAL IV ONE (03:15)
[2024-05-25] MEDS ORDERED: KETOROLAC TROMETHAMINE 30 MG/ML VIAL IV ONE (03:15)
[2024-05-25] MEDS ORDERED: HYDROmorphone HCL 1 MG/ML SYR IV ONE (03:15)
[2024-05-25 03:17] LABS: BASOPHILS 0.5 % (0-2); EOSINOPHILS 0.8 % (0-6); HEMATOCRIT 38.8 % (35.0-50.0); LYMPHOCYTES 9.8 % (24-44); MCHC 32.7 g/dl (30-36); MCV 97.9 fl (81-99); MONOCYTES 11.5 % (0-12); NEUTROPHILS 77.4 % (39-80); PLATELET COUNT 306 K/uL (140-440); RBC 3.96 M/ul (4.3-5.7); RDW 15.4 (10.5-15.0)
[2024-05-25 03:28] LABS: ALBUMIN 3.3 g/dL (3.4-5.0); ALBUMIN/GLOBULIN RATIO 1.14 (1.1-2.4); ANION GAP 11.3 (7-21); BILIRUBIN, TOTAL 0.7 ng/dL (0.2-1.0); BUN/CREATININE RATIO 14.64 (6.0-28.6); CALCIUM 8.7 mg/dL (8.5-10.1); CREATININE, SERUM 1.57 mg/dL (0.70-1.30); POTASSIUM 3.3 mmol/L (3.5-5.1); PROTEIN, TOTAL 6.2 g/dL (6.4-8.2)
[2024-05-25] MEDS ORDERED: PROMETHEGAN25 MG PR (03:58)
[2024-05-25] MEDS ORDERED: HYDROmorphone HCL 2 MG HOME.PACK PO ONE (04:00)
[2024-05-25] MEDS ORDERED: PROMETHAZINE HCL 25 MG SUPP. HOME.PACK PR ONE (04:00)
[2024-05-25] MEDS ORDERED: HYDROmorphone HCL 1 MG/ML SYR IV PRN (04:00)
[2024-05-25 04:28] VITALS: BP 114/76
== END 2024-05-25 04:28 | disposition home or self-care (01) ==
LOC: ED 02:50
PROVIDERS: Family Medicine
DX: N20.0 Calculus of kidney (principal); F17.200 Nicotine dependence, unspecified, uncomplicated; Z79.899 Other long term (current) drug therapy; Z79.890 Hormone replacement therapy
CPT/HCPCS: 36415; 80053; 85025; 96374; 96375; 96376; 99284-25; J1170; J1885; J2405

== ENCOUNTER 2024-06-27 19:34 | Emergency (ER) | payer MEDICARE, OTHER ==
[~2024-06-27] VITALS: Ht 167.6 cm; Wt 65.5 kg
[~2024-06-27 19:34] MED LIST changes: +PROMETHEGAN25 MG PR
[2024-06-27 20:12] LABS: BASOPHILS 0.5 % (0-2); EOSINOPHILS 2.7 % (0-6); HEMATOCRIT 42.7 % (35.0-50.0); HEMOGLOBIN 14.2 g/dL (12.0-18.0); LYMPHOCYTES 22.9 % (24-44); MCH 31.2 (27-36); MCHC 33.3 g/dl (30-36); MCV 93.7 fl (81-99); MONOCYTES 10.5 % (0-12); NEUTROPHILS 63.4 % (39-80); PLATELET COUNT 269 K/uL (140-440); RBC 4.55 M/ul (4.3-5.7)
[2024-06-27] MEDS ORDERED: methylPREDNISolone SOD SUCC 125 MG/2 ML VIAL IV ONE (20:15)
[2024-06-27] MEDS ORDERED: ALBUTEROL/IPRATROPIUM 3 ML NEB INH ONE (20:15)
[2024-06-27] MEDS ORDERED: LORazepam 2 MG/ML VIAL IV ONE (20:15)
[2024-06-27 20:40] LABS: ALBUMIN 3.6 g/dL (3.4-5.0); ALBUMIN/GLOBULIN RATIO 1.09 (1.1-2.4); ANION GAP 14.8 (7-21); BILIRUBIN, TOTAL 0.6 ng/dL (0.2-1.0); BUN/CREATININE RATIO 11.42 (6.0-28.6); CALCIUM 9.3 mg/dL (8.5-10.1); CREATININE, SERUM 1.05 mg/dL (0.70-1.30); POTASSIUM 3.8 mmol/L (3.5-5.1); PROTEIN, TOTAL 6.9 g/dL (6.4-8.2)
[2024-06-27 20:58] LABS: INFLUENZA B NAA NEGATIVE (NEGATIVE); RESPIRATORY SYNCYTIAL VIR NAA NEGATIVE (NEGATIVE)
[2024-06-27] MEDS ORDERED: INHALER, ASSIST DEVICES 1 EACH SPACER MISC ONE (21:15)
[2024-06-27] MEDS ORDERED: methylPREDNISolone 4 MG HOME.PACK PO ONE (21:15)
[2024-06-27] MEDS ORDERED: ALBUTEROL SULFATE 8 GM HOME.PACK INH ONE (21:15)
[2024-06-27 21:30] VITALS: BP 101/67
[2024-06-27] MEDS ORDERED: AZITHROMYCIN 250 MG HOME.PACK PO ONE (21:30)
== END 2024-06-27 21:30 | disposition home or self-care (01) ==
LOC: ED 19:34
PROVIDERS: Family Medicine
DX: J44.1 Chronic obstructive pulmonary disease with (acute) exacerbation (principal); F17.200 Nicotine dependence, unspecified, uncomplicated; Z79.890 Hormone replacement therapy; Z79.899 Other long term (current) drug therapy
CPT/HCPCS: 36415; 71045; 80053; 82803; 83880; 85025; 85379; 87502; 94640; 96374; 96375; 99285-25; J2060; J2919; U0002

== ENCOUNTER 2024-08-24 08:08 | Emergency (ER) | payer MEDICARE, OTHER ==
[~2024-08-24] VITALS: Ht 167.6 cm; Wt 67.9 kg
[2024-08-24] MEDS ORDERED: LEVOTHYROXINE150 MCG PO (08:25)
[2024-08-24] MEDS ORDERED: HYDROCODON-ACE1 EAC8 PO (08:25)
[2024-08-24] MEDS ORDERED: TAMSULOSIN HCL0.4 MG PO (08:25)
[2024-08-24] MEDS ORDERED: PHENAZOPYRIDINE HCL 95 MG TAB PO ONE (09:00)
[2024-08-24 09:03] LABS: BILIRUBIN, URINE NEGATIVE (negative); BLOOD/HGB, URINE NEGATIVE (Negative); KETONE, URINE NEGATIVE (Negative); LEUK ESTERASE, URINE NEGATIVE (negative); NITRITE, URINE NEGATIVE (negative); PH, URINE 5.5 (5-7)
[2024-08-24 10:02] VITALS: BP 127/84
[2024-08-24 10:29] LABS: N. GONORRRHOEAE BY PCR NOT DETECTED (NOT DETECT)
== END 2024-08-24 10:04 | disposition home or self-care (01) ==
LOC: ED 08:08
PROVIDERS: Emergency Medicine
DX: R30.0 Dysuria (principal); F17.200 Nicotine dependence, unspecified, uncomplicated; Z79.890 Hormone replacement therapy; Z79.899 Other long term (current) drug therapy
CPT/HCPCS: 51798; 81003; 99283-25

== ENCOUNTER 2025-01-12 15:13 | Emergency (ER) | payer MEDICARE, OTHER ==
[~2025-01-12] VITALS: Ht 167.6 cm; Wt 70.0 kg
[~2025-01-12 15:13] MED LIST changes: +HYDROCODON-ACE1 EAC8 PO; +TAMSULOSIN HCL0.4 MG PO
[2025-01-12] MEDS ORDERED: ondansetron HCL 4 MG/2 ML VIAL IV ONE (17:15)
[2025-01-12] MEDS ORDERED: SODIUM CHLORIDE 0.9% 500 ML IV ONE (17:15)
[2025-01-12 17:42] LABS: BASOPHILS 0.2 % (0-2); EOSINOPHILS 2.2 % (0-6); HEMOGLOBIN 16.5 g/dL (12.0-18.0); LYMPHOCYTES 2.4 % (24-44); MCH 32.3 (27-36); MCHC 34.3 g/dl (30-36); MCV 94.4 fl (81-99); NEUTROPHILS 91.2 % (39-80); PLATELET COUNT 252 K/uL (140-440); RBC 5.09 M/ul (4.3-5.7)
[2025-01-12 17:56] LABS: ALBUMIN 3.5 g/dL (3.4-5.0); ALBUMIN/GLOBULIN RATIO 1.03 (1.1-2.4); ANION GAP 12.5 (7-21); BILIRUBIN, TOTAL 1.1 mg/dL (0.2-1.0); BUN/CREATININE RATIO 19.79 (6.0-28.6); CALCIUM 8.6 mg/dL (8.5-10.1); CREATININE, SERUM 0.96 mg/dL (0.70-1.30); POTASSIUM 4.5 mmol/L (3.5-5.1); PROTEIN, TOTAL 6.9 g/dL (6.4-8.2)
[2025-01-12] MEDS ORDERED: SODIUM CHLORIDE 0.9% 1,000 ML IV ONE (18:30)
[2025-01-12] MEDS ORDERED: DIPHENOXYLATE/ATROPINE 1 EA TAB PO ONE (18:45)
[2025-01-12 18:52] LABS: BILIRUBIN, URINE NEGATIVE (negative); BLOOD/HGB, URINE NEGATIVE (Negative); KETONE, URINE NEGATIVE (Negative); LEUK ESTERASE, URINE NEGATIVE (negative); NITRITE, URINE NEGATIVE (negative); PH, URINE 7.5 (5-7)
[2025-01-12] MEDS ORDERED: PROMETHAZINE HCL 25 MG HOME.PACK PO ONE (19:00)
[2025-01-12] MEDS ORDERED: PROMETHAZINE HC25 M1 PO (19:27)
[2025-01-12] MEDS ORDERED: LOMOTIL TABLET1 EACH PO (19:27)
[2025-01-12 19:45] VITALS: BP 117/73
== END 2025-01-12 19:47 | disposition home or self-care (01) ==
LOC: ED 15:13
PROVIDERS: Emergency Medicine
DX: K52.9 Noninfective gastroenteritis and colitis, unspecified (principal); F17.200 Nicotine dependence, unspecified, uncomplicated; Z79.899 Other long term (current) drug therapy
CPT/HCPCS: 36415; 80053; 81003; 83735; 85025; 96374; 99284-25; J2405; J7030; J7040